=== PATIENT | male | born 1980 | race Caucasian/White ===

== ENCOUNTER 2016-12-09 10:51 | Emergency (ER) | payer MEDICAID ==
[~2016-12-09] VITALS: Ht 190.5 cm; Wt 59.0 kg
[~2016-12-09 10:51] MED LIST: ALPR0.5T PO; ALPR1TAB2 PO; ALPR2TAB2 PO; Amitriptyline Hcl PO; Erythromycin Base PO; GABA-585 PO; IBUP-1027 PO; METO10TA81 PO; NORT25CA PO; NORT50CA PO; OFLO5DRO EACHEYE; OMEP20CA9 PO; ONDA4TAB10 SL; ONDA4TAB12 PO; ONDA4TAB7 PO; ONDA8TAB9 PO; OXYC10TA32 PO; OXYC10TA57 PO; PROM25SU32 RC; SERT25TA4 PO
[2016-12-09 11:10] VITALS: BP 124/97
[2016-12-09] MEDS ORDERED: IV NORMAL SALINE 1000ML BAG 1,000 ML IV ONE (11:45)
[2016-12-09] MEDS ORDERED: METOCLOPRAMIDE HCL 10 MG/2 ML VIAL. IV ONE (11:45)
[2016-12-09] MEDS ORDERED: KETOROLAC TROMETHAMINE 30 MG/ML SYRINGE. IV ONE (11:45)
[2016-12-09 12:59] LABS: BASO # 0.1 x10^3/uL (0.0-0.2); BASO % 1 % (0-3); EOS % 2 % (0-3); HEMATOCRIT 51.6 % (39.0-53.0); HEMOGLOBIN 17.2 g/dL (13.0-17.5); LYMPH # 1.6 x10^3/uL (1.0-4.8); LYMPH % 15 % (24-48); MEAN CORPUSCULAR HEMOGLOBIN 31 pg (25-35); MEAN CORPUSCULAR HGB CONC 33 g/dL (31-37); MEAN CORPUSCULAR VOLUME 94 fL (79-100); MONO % 6 % (0-9); NEUT % 77 % (31-73); PLATELET COUNT 249 x10^3/uL (140-400); RED BLOOD COUNT 5.51 x10^6/uL (4.30-5.70); RED CELL DISTRIBUTION WIDTH 13.5 % (11.5-14.5); WHITE BLOOD COUNT 10.8 x10^3/uL (4.0-11.0)
[2016-12-09 13:17] LABS: CALCIUM 9.3 mg/dL (8.5-10.1); CREATININE 0.8 mg/dL (0.7-1.3); GFR 109.4; POTASSIUM 4.5 mmol/L (3.5-5.1)
[2016-12-09 13:23] LABS: ALBUMIN/GLOBULIN RATIO 1.1 (1.0-1.7); TOTAL BILIRUBIN 0.4 mg/dL (0.2-1.0); TOTAL PROTEIN 7.7 g/dL (6.4-8.2)
--- NOTE | 2016-12-09 14:40 | ED.ADGEN ---
Past Medical History Past Medical History: Cyclic Vomiting, Pneumonia, Other Additional Past Medical Histor: MUSCULAR DYSTROPHY, neurofibromatosis, gastroparesis, drug seeking behavior Past Surgical History: Cholecystectomy Alcohol Use: Rarely Drug Use: Marijuana Adult General Chief Complaint Chief Complaint: ABDOMINAL PAIN HPI HPI Patient is a 36 year old man, history of cyclic vomiting syndrome and chronic abdominal pain, marijuana abuse, who presents emergency Department complaining of recurrence of his chronic abdominal pain nausea and vomiting. Patient states that his multiple episodes of nausea and vomiting today, and is complaining of abdominal pain in his lower quadrant which is consistent with his previous evaluations. Patient has been seen in the emergency department multiple times with similar complaint. He states he is currently following with [facility], and was taken off all of his medications. He states that he has been doing better since this change was made. He denies taking any medication for nausea or pain prior to coming to the ED, admits to recent marijuana use, which she states was earlier this week. Denies any fevers, any chills, any bloody stool or emesis, any diarrhea, any weakness emesis or tingling, any injuries. Review of Systems Review of Systems Constitutional: Denies fever or chills. [] Eyes: Denies change in visual acuity. [] HENT: Denies nasal congestion or sore throat. [] Respiratory: Denies cough or shortness of breath. [] Cardiovascular: Denies chest pain or edema. [] GI: Denies abdominal pain, nausea, vomiting, bloody stools or diarrhea. [] : Denies dysuria. [] Musculoskeletal: Denies back pain or joint pain. [] Integument: Denies rash. [] Neurologic: Denies headache, focal weakness or sensory changes. [] Endocrine: Denies polyuria or polydipsia. [] Lymphatic: Denies swollen glands. [] Psychiatric: Denies depression or anxiety. [] Current Medications Current Medications Current Medications Medications (Trade) Dose Ordered Sig/Noah Start Time Stop Time Status Last Admin Dose Admin Ketorolac Tromethamine (Toradol) 10 mg 1X ONCE 12/09/16 11:45 12/09/16 11:46 DC 12/09/16 12:55 10 MG Metoclopramide HCl (Reglan) 10 mg 1X ONCE 12/09/16 11:45 12/09/16 11:46 DC 12/09/16 12:52 10 MG Sodium Chloride (Iv Sodium Chloride 0.9% 1000ml Bag) 1,000 ml @ 1,000 mls/hr 1X ONCE 12/09/16 11:45 12/09/16 12:44 DC 12/09/16 12:51 1,000 MLS/HR Allergies Allergies Allergies Coded Allergies Type Severity Reaction Last Updated Verified morphine Adverse Reaction Severe "makes me crazy" Tolerates Dilaudid, Oxycodone 12/09/16 Yes acetaminophen Adverse Reaction Intermediate vomiting 12/09/16 Yes Physical Exam Physical Exam Constitutional: Well developed, well nourished, no acute distress, non-toxic appearance. [] HENT: Normocephalic, atraumatic, bilateral external ears normal, oropharynx moist, no oral exudates, nose normal. [] Eyes: PERRLA, EOMI, conjunctiva normal, no discharge. [] Neck: Normal range of motion, no tenderness, supple, no stridor. [] Cardiovascular:Heart rate regular rhythm, no murmur, S1, S2, rubs or gallops. [] Lungs & Thorax: Bilateral breath sounds clear to auscultation, no wheezing, rhonchi, rales. No chest tenderness or crepitus. [] Abdomen: Bowel sounds normal, soft, mild tenderness palpation in the lower quadrants, no rebound, rigidity, no guarding, consistent with previous examinations, no masses, no pulsatile masses. [] Skin: Warm, dry, no erythema, no rash. [] Back: No tenderness, no CVA tenderness. [] Extremities: No tenderness, no cyanosis, no clubbing, ROM intact, no edema. [] Neurologic: Alert and oriented X 3, normal motor function, normal sensory function, no focal deficits noted. [] Psychologic: Affect normal, judgement normal, mood normal. [] Current Patient Data Vital Signs Vital Signs Date Time Temp Pulse Resp B/P Pulse Ox O2 Delivery O2 Flow Rate FiO2 12/09/16 11:10 97.6 78 20 124/97 99 Room Air 97.6 Lab Values Laboratory Tests Test 12/09/16 12:45 White Blood Count 10.8x10^3/uL (4.0-11.0) Red Blood Count 5.51x10^6/uL (4.30-5.70) Hemoglobin 17.2g/dL (13.0-17.5) Hematocrit 51.6% (39.0-53.0) Mean Corpuscular Volume 94fL (79-100) Mean Corpuscular Hemoglobin 31pg (25-35) Mean Corpuscular Hemoglobin Concent 33g/dL (31-37) Red Cell Distribution Width 13.5% (11.5-14.5) Platelet Count 249x10^3/uL (140-400) Neutrophils (%) (Auto) 77% (31-73) H Lymphocytes (%) (Auto) 15% (24-48) L Monocytes (%) (Auto) 6% (0-9) Eosinophils (%) (Auto) 2% (0-3) Basophils (%) (Auto) 1% (0-3) Neutrophils # (Auto) 8.2x10^3uL (1.8-7.7) H Lymphocytes # (Auto) 1.6x10^3/uL (1.0-4.8) Monocytes # (Auto) 0.7x10^3/uL (0.0-1.1) Eosinophils # (Auto) 0.2x10^3/uL (0.0-0.7) Basophils # (Auto) 0.1x10^3/uL (0.0-0.2) Sodium Level 142mmol/L (136-145) Potassium Level 4.5mmol/L (3.5-5.1) Chloride Level 105mmol/L (98-107) Carbon Dioxide Level 29mmol/L (21-32) Anion Gap 8 (6-14) Blood Urea Nitrogen 14mg/dL (8-26) Creatinine 0.8mg/dL (0.7-1.3) Estimated GFR (Cockcroft-Gault) 109.4 BUN/Creatinine Ratio 18 (6-20) Glucose Level 83mg/dL (70-99) Calcium Level 9.3mg/dL (8.5-10.1) Total Bilirubin 0.4mg/dL (0.2-1.0) Aspartate Amino Transferase (AST) 23U/L (15-37) Alanine Aminotransferase (ALT) 21U/L (16-63) Alkaline Phosphatase 93U/L (46-116) Total Protein 7.7g/dL (6.4-8.2) Albumin 4.0g/dL (3.4-5.0) Albumin/Globulin Ratio 1.1 (1.0-1.7) Lipase 159U/L (73-393) Laboratory Tests 12/09/16 12:45 Laboratory Tests 12/09/16 12:45 EKG EKG ECG: Rhythm strip: Heart rate 70 bpm, sinus rhythm, no ectopy, as interpreted by me. [] Radiology/Procedures Radiology/Procedures Not indicated. [] Course & Med Decision Making Course & Med Decision Making Pertinent Labs and Imaging studies reviewed. (See chart for details) Patient complaining of recurrent symptoms of his cyclic vomiting chronic abdominal pain. Discussed with patient that we will obtain laboratory studies to rule out any concerning findings, and we'll treat his symptoms with antiemetics, pain management, and Haldol, concern for cyclic vomiting syndrome that was worsened by marijuana use. Patient received medications in the ED, is requesting Dilaudid. No episodes of emesis in the ED. I have explained to the patient previously that we do not give Dilaudid for this type of presentation, on abdominal pain with vomiting, at this point his laboratory studies have resulted and do not reveal any evidence of acutely concerning findings. While I was with a critically ill patient, patient stated that he was not willing to wait for me to discuss findings with him in the ED, and requested to sign out AGAINST MEDICAL ADVICE. Patient is alert, oriented, cooperative, and paperwork was completed with nurse per nursing notes, patient did exit the emergency department without difficulty with his significant other. Dragon Disclaimer Dragon Disclaimer This electronic medical record was generated, in whole or in part, using a voice recognition dictation system. Departure Impression: Primary Impression: Left against medical advice Additional Impressions: Cyclical vomiting Drug-seeking behavior Chronic abdominal pain Disposition: 07 AGAINST MEDICAL ADVICE Condition: STABLE Problem Qualifiers Additional Impressions: Cyclical vomiting Vomiting Intractability: non-intractable Nausea presence: with nausea Qualified Code: G43.A0 - Cyclical vomiting, not intractable JAMIE BERG DO Dec 09, 2016 14:40
[2016-12-11] MEDS ORDERED: METO10TA81 PO (10:01)
== END 2016-12-09 13:28 | disposition left against medical advice (07) ==
LOC: ER 10:51
DX: G43.A0 Cyclical vomiting, in migraine, not intractable (principal); R10.30 Lower abdominal pain, unspecified; G89.29 Other chronic pain; F12.10 Cannabis abuse, uncomplicated; G71.0 Muscular dystrophy; K31.84 Gastroparesis; Z76.5 Malingerer [conscious simulation]; Z88.8 Allergy status to other drugs, medicaments and biological substances; Z88.5 Allergy status to narcotic agent
CPT/HCPCS: 36415; 80053; 83690; 85027; 96361; 96374; 96375; 99284; J1885; J2765; J7030

== ENCOUNTER 2017-02-01 08:02 | Emergency (ER) | payer MEDICAID ==
[2017-02-01 08:21] VITALS: BP 128/73
--- NOTE | 2017-02-01 08:29 | PHYS DOC ---
Past Medical History Past Medical History: Cyclic Vomiting, Pneumonia, Other Additional Past Medical Histor: MUSCULAR DYSTROPHY, neurofibromatosis, gastroparesis, drug seeking behavior Past Surgical History: Cholecystectomy Alcohol Use: Rarely Drug Use: Marijuana Adult General Chief Complaint Chief Complaint: NAUSEA/VOMITING/DIARRHA HPI HPI Patient is a 37 year old male who presents with complaint of abdominal pain and vomiting. Patient states that his symptoms started approximate 4:00 this morning. Patient has had multiple visits to the emergency department for similar complaints. Patient has been treated for cyclical vomiting syndrome and displays a pattern of drug-seeking behavior. The patient states that he is having pain in the upper and right side of his abdomen. Patient denies bloody emesis or bloody stools. Patient states that he does not take any medications at home currently. Patient states that his doctor took him off of medications so that when he gets exacerbations of his abdominal pain and vomiting that he can come to the emergency department and receive IV narcotics. Patient states this is the only medication that helps with his symptoms. Patient rates pain as 10 out of 10. Patient has not taken any medication at home for his symptoms. Patient states that he has not taken any medications in over a year despite chart review showing multiple prescription meds being written for in the past year. Review of Systems Review of Systems Constitutional: Denies fever or chills [] Eyes: Denies change in visual acuity, redness, or eye pain [] HENT: Denies nasal congestion or sore throat [] Respiratory: Denies cough or shortness of breath [] Cardiovascular: Denies chest pain or edema [] GI: Abdominal pain, nausea, vomiting [] : Denies dysuria or hematuria [] Musculoskeletal: Denies back pain or joint pain [] Integument: Denies rash or skin lesions [] Neurologic: Denies headache, focal weakness or sensory changes [] Allergies Allergies Allergies Coded Allergies Type Severity Reaction Last Updated Verified morphine Adverse Reaction Severe "makes me crazy" Tolerates Dilaudid, Oxycodone 12/09/16 Yes acetaminophen Adverse Reaction Intermediate vomiting 12/09/16 Yes Physical Exam Physical Exam Constitutional: Alert, afebrile, appears in minimal discomfort. [] HENT: Normocephalic, atraumatic, bilateral external ears normal, oropharynx moist, no oral exudates, nose normal. [] Eyes: PERRLA, EOMI, conjunctiva normal, no discharge. [] Neck: Normal range of motion, no tenderness, supple, no stridor. [] Cardiovascular:Heart rate regular rhythm, no murmur [] Lungs & Thorax: Bilateral breath sounds clear to auscultation [] Abdomen: Bowel sounds normal, soft, epigastric and right upper quadrant tenderness to palpation, no masses, no pulsatile masses. [] Skin: Warm, dry, no erythema, no rash. [] Back: No tenderness, no CVA tenderness. [] Extremities: No tenderness, no cyanosis, no clubbing, ROM intact, no edema. [] Neurologic: Alert and oriented X 3, normal motor function, normal sensory function, no focal deficits noted. [] Current Patient Data Vital Signs Vital Signs Date Time Temp Pulse Resp B/P Pulse Ox O2 Delivery O2 Flow Rate FiO2 02/01/17 08:21 98.3 67 16 128/73 98 Room Air 98.3 EKG EKG Initial rhythm strip: Heart rate 78, normal sinus rhythm, no ectopy [] Radiology/Procedures Radiology/Procedures Not performed [] Course & Med Decision Making Course & Med Decision Making Pertinent Labs and Imaging studies reviewed. (See chart for details) The patient's vital signs are stable and the patient does not appear toxic. For this reason I offered the patient treatment with IM versus oral medication. The patient stated that I am medication does not help him and states the only thing that will help her IV narcotics. I attempted to explain to the patient that this is not appropriate therapy for cyclical vomiting syndrome. I did offer diagnostic testing to ensure the patient did not show evidence of acute pancreatitis or other metabolic abnormalities. The patient refused to stay in the emergency department once he was told that he would not be receiving IV narcotics. I also attempted to explain to the patient that leaving the emergency department before full diagnostic workup was done was not advisable at this time and stated that he would be leaving AGAINST MEDICAL ADVICE. The patient left the emergency department refusing to sign any paperwork. Arminda Disclaimer Dragon Disclaimer This electronic medical record was generated, in whole or in part, using a voice recognition dictation system. Departure Departure Impression: Primary Impression: Abdominal pain Additional Impression: Left against medical advice Disposition: AGAINST MEDICAL ADVICE Condition: STABLE Referrals: UNKNOWN PCP NAME (PCP) Problem Qualifiers Primary Impression: Abdominal pain Abdominal location: upper abdomen, unspecified Qualified Code: R10.10 - Upper abdominal pain, unspecified HARRIS BEGUM MD Feb 01, 2017 08:29
== END 2017-02-01 08:20 | disposition left against medical advice (07) ==
LOC: ER 08:02
DX: R10.9 Unspecified abdominal pain (principal); R11.10 Vomiting, unspecified; K31.84 Gastroparesis; F12.10 Cannabis abuse, uncomplicated; Z87.01 Personal history of pneumonia (recurrent); Z88.5 Allergy status to narcotic agent; Z88.8 Allergy status to other drugs, medicaments and biological substances
CPT/HCPCS: 99281

== ENCOUNTER 2017-03-19 14:24 | Inpatient (IN) | payer MEDICAID ==
[~2017-03-19] VITALS: Ht 190.5 cm; Wt 59.0 kg
[2017-03-19] MEDS ORDERED: IV NORMAL SALINE 1000ML BAG 1,000 ML IV SCH (14:46)
--- NOTE | 2017-03-19 14:52 | PHYS DOC ---
Past Medical History Past Medical History: Cyclic Vomiting, Pneumonia, Other Additional Past Medical Histor: MUSCULAR DYSTROPHY, neurofibromatosis, gastroparesis, drug seeking behavior Past Surgical History: Cholecystectomy Alcohol Use: Rarely Drug Use: Marijuana Adult General Chief Complaint Chief Complaint: abdominal pain HPI HPI H is a pleasant 37-year-old female well-known to this facility with history of gastric paresis chronic abdominal pain narcotic abuse and withdrawal symptoms presents with intractable nausea vomiting began this morning. He is a history of cyclic vomiting syndrome as chronic abdominal pain she is on no medications and is on care of a GI physician. He has been seen in multiple treatment facilities and last time he was seen here the exact same complaint. Only is nonbilious nonbloody he has not no fevers no chills. Blood in the stool. He's had no history of syncope but is very diaphoretic and lightheaded and dizzy when he stands. He's had chest wall pain with intractable nausea and vomiting this worsens with vomiting. He denies any drug, denies any trauma denies any recent sick contacts. His girlfriend is at bedside. Review of Systems Review of Systems Constitutional: Denies fever or chills [] Eyes: Denies change in visual acuity, redness, or eye pain [] HENT: Patient feels dry Respiratory: Denies cough or shortness of breath [] Cardiovascular: No additional information not addressed in HPI [] GI: Patient complains of diffuse abdominal pain with intractable nausea and vomiting on the list of bloody : Denies dysuria or hematuria [] Musculoskeletal: Denies back pain or joint pain [] Integument: Denies rash or skin lesions [] Neurologic: Feels diffusely weak Endocrine: Denies polyuria or polydipsia [] Current Medications Current Medications Current Medications Medications (Trade) Dose Ordered Sig/Noah Start Time Stop Time Status Last Admin Dose Admin Haloperidol Lactate (Haldol) 5 mg 1X ONCE 03/19/17 15:00 03/19/17 15:01 DC Ketamine HCl 20 mg 1X ONCE 03/19/17 15:00 03/19/17 15:01 DC 03/19/17 15:42 20 MG Ondansetron HCl (Zofran) 4 mg 1X ONCE 03/19/17 15:00 03/19/17 15:01 DC 03/19/17 15:32 4 MG Sodium Chloride (Iv Sodium Chloride 0.9% 1000ml Bag) 1,000 ml @ 1,000 mls/hr Q1H 03/19/17 14:46 03/19/17 15:45 DC 03/19/17 15:32 1,000 MLS/HR Sodium Chloride (Normal Saline Flush) 10 ml QSHIFT PRN 03/19/17 15:00 03/19/17 15:30 10 ML Allergies Allergies Allergies Coded Allergies Type Severity Reaction Last Updated Verified morphine Adverse Reaction Severe "makes me crazy" Tolerates Dilaudid, Oxycodone 12/09/16 Yes acetaminophen Adverse Reaction Intermediate vomiting 12/09/16 Yes Physical Exam Physical Exam Constitutional: Patient is thin and cachectic with diaphoresis pale skin looks obviously uncomfortable. HENT: Normocephalic, atraumatic, bilateral external ears normal, oropharynx moist, no oral exudates, nose normal. [] Eyes: PERRLA, EOMI, conjunctiva normal, no discharge. [] Neck: Normal range of motion, no tenderness, supple, no stridor. [] Cardiovascular patient rate is bradycardic Lungs & Thorax: Bilateral breath sounds clear to auscultation [] Abdomen: Patient bowel sounds are hyperactive he is diffuse tenderness in all areas of his abdomen Skin: Skin is diaphoretic and pale Back: No tenderness, no CVA tenderness. [] Extremities: No tenderness, no cyanosis, no clubbing, ROM intact, no edema. [] Neurologic: Alert and oriented X 3, normal motor function, normal sensory function, no focal deficits noted. [] Psychologic: Affect normal, judgement normal, mood normal. [] Current Patient Data Vital Signs Vital Signs Date Time Temp Pulse Resp B/P Pulse Ox O2 Delivery O2 Flow Rate FiO2 03/19/17 16:04 54 16 120/60 98 Room Air 03/19/17 14:30 97.6 97.6 Lab Values Laboratory Tests Test 03/19/17 15:50 White Blood Count 9.0x10^3/uL (4.0-11.0) Red Blood Count 5.18x10^6/uL (4.30-5.70) Hemoglobin 16.9g/dL (13.0-17.5) Hematocrit 49.1% (39.0-53.0) Mean Corpuscular Volume 95fL (79-100) Mean Corpuscular Hemoglobin 33pg (25-35) Mean Corpuscular Hemoglobin Concent 35g/dL (31-37) Red Cell Distribution Width 14.1% (11.5-14.5) Platelet Count 274x10^3/uL (140-400) Neutrophils (%) (Auto) 82% (31-73) H Lymphocytes (%) (Auto) 13% (24-48) L Monocytes (%) (Auto) 4% (0-9) Eosinophils (%) (Auto) 1% (0-3) Basophils (%) (Auto) 0% (0-3) Neutrophils # (Auto) 7.4x10^3uL (1.8-7.7) Lymphocytes # (Auto) 1.2x10^3/uL (1.0-4.8) Monocytes # (Auto) 0.4x10^3/uL (0.0-1.1) Eosinophils # (Auto) 0.1x10^3/uL (0.0-0.7) Basophils # (Auto) 0.0x10^3/uL (0.0-0.2) Laboratory Tests 03/19/17 15:50 EKG EKG [] EKG timed working 33 03/19/2017 heart rate 54 normal sinus rhythm with a rightward axis deviation and incomplete right bundle was struck with a RR prime in the V1, V2 leads no ST segment elevation no evidence of widened QRS complex Radiology/Procedures Radiology/Procedures [] Course & Med Decision Making Course & Med Decision Making Pertinent Labs and Imaging studies reviewed. (See chart for details) [Patient is well-known to our system here he's been seen in our emergency department for abdominal pain with intractable nausea and vomiting patient is to some drinking water while here. He said he feels better than retching. He has been given multiple doses Zofran we've given him some Haldol and attempted to give him a slow bolus of ketamine in an attempt to treat his intractable nausea and vomiting this is work from the past but at this present time Nielsman 2 hours into his evaluation he still having intractable nausea and vomiting. He reports she will not take her advice and does not quit drinking water at the bedside and continues to vomit clear liquid. CMP looked normal] evidence of injury to his kidney structure. Patient will be admitted for intractable nausea and vomiting. He will be admitted to internal medicine Dragon Disclaimer Dragon Disclaimer This electronic medical record was generated, in whole or in part, using a voice recognition dictation system. Departure Departure Impression: Primary Impression: Abdominal pain Additional Impressions: Cyclic vomiting syndrome Gastroparesis Disposition: 02 TRANSFER [facility] Admitting Physician: Cirilo Luther Condition: GUARDED Referrals: NO PCP (PCP) Problem Qualifiers GHASSAN RM MD March 19, 2017 14:52
[2017-03-19] MEDS ORDERED: KETAMINE HCL 500 MG/10 ML VIAL. IV ONE (15:00)
[2017-03-19] MEDS ORDERED: 0.9 % SODIUM CHLORIDE 10 ML DISP.SYRIN. IV PRN (15:00)
[2017-03-19] MEDS ORDERED: HALOPERIDOL LACTATE 5 MG/ML VIAL. IVP ONE (15:00)
[2017-03-19] MEDS ORDERED: ONDANSETRON PF 4 MG/2 ML VIAL. IV ONE ×2 (15:00→16:45)
[2017-03-19 16:05] LABS: BASO % 0 % (0-3); EOS % 1 % (0-3); HEMATOCRIT 49.1 % (39.0-53.0); HEMOGLOBIN 16.9 g/dL (13.0-17.5); LYMPH # 1.2 x10^3/uL (1.0-4.8); LYMPH % 13 % (24-48); MEAN CORPUSCULAR HEMOGLOBIN 33 pg (25-35); MEAN CORPUSCULAR HGB CONC 35 g/dL (31-37); MEAN CORPUSCULAR VOLUME 95 fL (79-100); MONO % 4 % (0-9); NEUT % 82 % (31-73); PLATELET COUNT 274 x10^3/uL (140-400); RED BLOOD COUNT 5.18 x10^6/uL (4.30-5.70); RED CELL DISTRIBUTION WIDTH 14.1 % (11.5-14.5)
[2017-03-19 16:18] LABS: CALCIUM 9.8 mg/dL (8.5-10.1); CREATININE 0.9 mg/dL (0.7-1.3); POTASSIUM 4.2 mmol/L (3.5-5.1)
[2017-03-19 16:25] LABS: ALBUMIN 4.3 g/dL (3.4-5.0); TOTAL BILIRUBIN 0.5 mg/dL (0.2-1.0); TOTAL PROTEIN 8.4 g/dL (6.4-8.2)
[2017-03-19 16:33] LABS: CKMB MASS 20.8 ng/mL (0.0-3.6)
--- NOTE | 2017-03-19 17:07 | RAD ---
Acute abdomen series with chest, 3 views, 03/19/2017: History: Abdominal pain with nausea and vomiting Comparison is made to a study from 10/19/2016. Gas is present in scattered loops of large and small bowel without significant bowel distention. No free air is present in the abdomen. There is no evidence of organomegaly. Surgical clips in the right upper quadrant suggest a previous cholecystectomy. A small right lower pelvic calcification has been shown to be related to a small pelvic mass in this patient with known neurofibromatosis. The heart size is normal. No pulmonary infiltrates are seen. There is no evidence of pleural fluid. 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 IMPRESSION: 1. Chronic findings as described above. 2. No acute abdominal abnormality is detected.
[2017-03-19 17:50] VITALS: BP 119/71
[2017-03-19] MEDS ORDERED: hydrALAZINE 20 MG/ML VIAL. IVP PRN (18:15)
[2017-03-19] MEDS ORDERED: ALBUTEROL SULFATE 2.5 MG/3 ML NEBU. NEB PRN (18:15)
[2017-03-19] MEDS ORDERED: fentaNYL PF VIAL 100 MCG/2 ML VIAL IV PRN (18:15)
[2017-03-19 19:00] VITALS: BP 115/61
--- NOTE | 2017-03-19 19:18 | ACF ---
Admission Forms Criteria VOMITING Clinical Indications for Admission to Inpatient Care ( Place 'X' for any and all applicable criteria): Admission is indicated for 1 or more of the following(1)(2)(3): [ ]I. Complete or partial gastrointestinal obstruction [ ]II. Vomiting due to significant metabolic derangement (eg, severe hypercalcemia, diabetic ketoacidosis) [ ]III. Other cause of vomiting requiring hospitalization (eg, poisoning, increased intracranial pressure) [X]IV. Inpatient admission required rather than observation care because of 1 or more of the following [ ]i) Hemodynamic instability [X]ii) Vomiting that is severe or persistent indicated by 1 or more of the following 1) Numerous episodes of vomiting in past 24hours (eg, every 1 to 2 hours) 2) Suggests severe underlying cause or complication (eg , projectile, feculent, bilious, coffee ground, bloody) 3) Appropriate antiemetic treatment (eg, repeated oral or parenteral dosing) does not sufficiently reduce vomiting within 12 to 24 hours of treatment [X] Treatment regimen necessary to adequately control vomiting requires inpatient level of care (eg, not immediately available in outpatient setting) [ ]iii) Severe electrolyte abnormalities requiring inpatient care [ ]iv) Severe pain requiring acute inpatient management( Continuous or frequent (eg, every 2 to 4 hours) parental analgesics or analgesic regimen that can only be performed or initiated in inpatient setting) [ ]v) High fever or infection requiring inpatient admission as indicated by 1 or more of the following(7)(8): [ ]1) Appropriate outpatient or observation care antimicrobial treatment unavailable, not effective, or not feasible [ ]2) Documented bacteremia [ ]3) Temp >104.9 degrees F (40.5 degrees C) (oral) [ ]4) Temp >103.1 degrees F (39.5 C) (oral) or <96.8 degrees F (36 C) (rectal) that does not respond to all emergency treatment measures [ ]vi) Acute renal failure [ ]vii) IV fluid required rather than oral rehydration to replace significant on going losses (greater than 3 L/m2 per day) [ ]viii) Parenteral nutrition regimen that must be implemented on inpatient basis [ ]ix) Other condition, treatment or monitoring requiring inpatient admission Extended stay beyond goal length of stay may be needed for(1)(4): [ ]a) Severe vomiting [ ]b) Persistent vomiting, vital sign changes, severe electrolyte imbalance , or diagnosed cause of vomiting that requires continued hospitalization (eg, gastrointestinal obstruction , increased intracranial pressure) [ ]c) Surgery to treat identified causes of vomiting (eg, bowel obstruction , intracranial process) [ ]d) Comorbid illness that requires inpatient care (eg, acute heart failure , renal failure) [ ]e) Need for inpatient endoscopy The original [facility] content created by [employer] has been revised. The portions of the content which have been revised are identified through the use of italic text or in bold, and [facility] has neither reviewed nor approved the modified material. All other unmodified content is copyright [facility]. Please see references footnoted in the original [facility] [employer] edition 2016 Admission Criteria Met?: Yes ADOLPH KAT March 19, 2017 19:18
--- NOTE | 2017-03-19 19:25 | PDOC1 ---
History and Physical Past Medical History CENTRAL NERVOUS SYSTEM: Other GI: Other Psych: Anxiety, Depression Past Surgical History Past Surgical History: Cholecystectomy Family History Family History: No Significant, Other Social History ALCOHOL: none Drugs: Marijuana Current Problem List Problem List Problems Medical Problems: (1) Abdominal pain Status: Acute (2) Cyclic vomiting syndrome Status: Acute (3) Gastroparesis Status: Acute Current Medications Current Medications Current Medications Medications (Trade) Dose Ordered Sig/Noah Start Time Stop Time Status Last Admin Dose Admin Albuterol Sulfate 2.5 mg 2.5 mg PRN Q4HRS PRN 03/19/17 18:15 Fentanyl Citrate (Fentanyl 2ml Vial) 25 mcg PRN Q4HRS PRN 03/19/17 18:15 03/20/17 18:14 Haloperidol Lactate (Haldol) 5 mg 1X ONCE 03/19/17 15:00 03/19/17 15:01 DC Hydralazine HCl (Apresoline) 10 mg PRN Q4HRS PRN 03/19/17 18:15 Ketamine HCl 20 mg 1X ONCE 03/19/17 15:00 03/19/17 15:01 DC 03/19/17 15:42 20 MG Ondansetron HCl (Zofran) 4 mg PRN Q8HRS PRN 03/19/17 18:15 Sodium Chloride (Iv Sodium Chloride 0.9% 1000ml Bag) 1,000 ml @ 75 mls/hr [id number] 03/19/17 18:15 Sodium Chloride (Normal Saline Flush) 10 ml QSHIFT PRN 03/19/17 15:00 03/19/17 15:30 10 ML Allergies Allergies Allergies Coded Allergies Type Severity Reaction Last Updated Verified morphine Adverse Reaction Severe "makes me crazy" Tolerates Dilaudid, Oxycodone 12/09/16 Yes acetaminophen Adverse Reaction Intermediate vomiting 12/09/16 Yes ROS Review of System CONSTITUTIONAL: No fever or chills EYES: No recent changes SKIN: No rash or itching CARDIOVASCULAR: No chest pain, syncope, palpitations, or edema RESPIRATORY: No SOB or cough GASTROINTESTINAL: nausea, vomiting or abdominal pain NEUROLOGICAL: No headaches or weakness ENDOCRINE: No cold or heat intolerance GENITOURINARY: No urgency or frequency of urination MUSCULOSKELETAL: No back pain or joint pain LYMPHATICS: No enlarged lymph nodes PSYCHIATRIC: No anxiety or depression Physical Exam Physical Exam GEN.: No apparent distress. Alert and oriented, dry, dehydrated. Thin built HEENT: Head is normocephalic, atraumatic NECK: Supple. LUNGS: Clear to auscultation. no JVD HEART: RRR, S1, S2 present. Peripheral pulses intact ABDOMEN: Soft, nontender. Positive bowel sounds. EXTREMITIES: Without any cyanosis. NEUROLOGIC: Normal speech, normal tone PSYCHIATRIC: Normal affect, normal mood. SKIN: DRY, Vitals Vitals Vital Signs Date Time Temp Pulse Resp B/P Pulse Ox O2 Delivery O2 Flow Rate FiO2 03/19/17 17:50 97.5 67 18 119/71 100 Room Air 97.5 Labs Labs Laboratory Tests Test 03/19/17 15:50 White Blood Count 9.0x10^3/uL (4.0-11.0) Red Blood Count 5.18x10^6/uL (4.30-5.70) Hemoglobin 16.9g/dL (13.0-17.5) Hematocrit 49.1% (39.0-53.0) Mean Corpuscular Volume 95fL (79-100) Mean Corpuscular Hemoglobin 33pg (25-35) Mean Corpuscular Hemoglobin Concent 35g/dL (31-37) Red Cell Distribution Width 14.1% (11.5-14.5) Platelet Count 274x10^3/uL (140-400) Neutrophils (%) (Auto) 82% (31-73) Lymphocytes (%) (Auto) 13% (24-48) Monocytes (%) (Auto) 4% (0-9) Eosinophils (%) (Auto) 1% (0-3) Basophils (%) (Auto) 0% (0-3) Neutrophils # (Auto) 7.4x10^3uL (1.8-7.7) Lymphocytes # (Auto) 1.2x10^3/uL (1.0-4.8) Monocytes # (Auto) 0.4x10^3/uL (0.0-1.1) Eosinophils # (Auto) 0.1x10^3/uL (0.0-0.7) Basophils # (Auto) 0.0x10^3/uL (0.0-0.2) Sodium Level 142mmol/L (136-145) Potassium Level 4.2mmol/L (3.5-5.1) Chloride Level 105mmol/L (98-107) Carbon Dioxide Level 29mmol/L (21-32) Anion Gap 8 (6-14) Blood Urea Nitrogen 16mg/dL (8-26) Creatinine 0.9mg/dL (0.7-1.3) Estimated GFR (Cockcroft-Gault) 95.0 BUN/Creatinine Ratio 18 (6-20) Glucose Level 132mg/dL (70-99) Calcium Level 9.8mg/dL (8.5-10.1) Total Bilirubin 0.5mg/dL (0.2-1.0) Aspartate Amino Transf (AST/SGOT) 27U/L (15-37) Alanine Aminotransferase (ALT/SGPT) 36U/L (16-63) Alkaline Phosphatase 101U/L (46-116) Creatine Kinase 397U/L (39-308) Creatine Kinase MB (Mass) 20.8ng/mL (0.0-3.6) Creatine Kinase MB Relative Index 5.2% (0-4) Total Protein 8.4g/dL (6.4-8.2) Albumin 4.3g/dL (3.4-5.0) Albumin/Globulin Ratio 1.0 (1.0-1.7) Lipase 104U/L (73-393) Laboratory Tests Test 03/19/17 15:50 White Blood Count 9.0x10^3/uL (4.0-11.0) Red Blood Count 5.18x10^6/uL (4.30-5.70) Hemoglobin 16.9g/dL (13.0-17.5) Hematocrit 49.1% (39.0-53.0) Mean Corpuscular Volume 95fL (79-100) Mean Corpuscular Hemoglobin 33pg (25-35) Mean Corpuscular Hemoglobin Concent 35g/dL (31-37) Red Cell Distribution Width 14.1% (11.5-14.5) Platelet Count 274x10^3/uL (140-400) Neutrophils (%) (Auto) 82% (31-73) Lymphocytes (%) (Auto) 13% (24-48) Monocytes (%) (Auto) 4% (0-9) Eosinophils (%) (Auto) 1% (0-3) Basophils (%) (Auto) 0% (0-3) Neutrophils # (Auto) 7.4x10^3uL (1.8-7.7) Lymphocytes # (Auto) 1.2x10^3/uL (1.0-4.8) Monocytes # (Auto) 0.4x10^3/uL (0.0-1.1) Eosinophils # (Auto) 0.1x10^3/uL (0.0-0.7) Basophils # (Auto) 0.0x10^3/uL (0.0-0.2) Sodium Level 142mmol/L (136-145) Potassium Level 4.2mmol/L (3.5-5.1) Chloride Level 105mmol/L (98-107) Carbon Dioxide Level 29mmol/L (21-32) Anion Gap 8 (6-14) Blood Urea Nitrogen 16mg/dL (8-26) Creatinine 0.9mg/dL (0.7-1.3) Estimated GFR (Cockcroft-Gault) 95.0 BUN/Creatinine Ratio 18 (6-20) Glucose Level 132mg/dL (70-99) Calcium Level 9.8mg/dL (8.5-10.1) Total Bilirubin 0.5mg/dL (0.2-1.0) Aspartate Amino Transf (AST/SGOT) 27U/L (15-37) Alanine Aminotransferase (ALT/SGPT) 36U/L (16-63) Alkaline Phosphatase 101U/L (46-116) Creatine Kinase 397U/L (39-308) Creatine Kinase MB (Mass) 20.8ng/mL (0.0-3.6) Creatine Kinase MB Relative Index 5.2% (0-4) Total Protein 8.4g/dL (6.4-8.2) Albumin 4.3g/dL (3.4-5.0) Albumin/Globulin Ratio 1.0 (1.0-1.7) Lipase 104U/L (73-393) VTE Prophylaxis Ordered VTE Prophylaxis Devices: No VTE Pharmacological Prophylaxi: Yes JORJE MILES MD March 19, 2017 19:25
[2017-03-19] MEDS: HYDROmorphone 2 MG/ML VIAL IVP PRN ×2 (19:34→21:59)
[2017-03-19] MEDS: IV NORMAL SALINE 1000ML BAG 1,000 ML IV SCH (19:45)
[2017-03-19] MEDS: ONDANSETRON PF 4 MG/2 ML VIAL. IV PRN (19:59)
[2017-03-19 23:00] VITALS: BP 119/70
--- NOTE | 2017-03-19 23:34 | HP ---
ADMIT DATE: 03/19/2017 CHIEF COMPLAINT: Nausea, vomiting, abdominal pain. HISTORY OF PRESENT ILLNESS: A 37-year-old male patient with a prior history of cyclical vomiting syndrome, who was last admitted in 08/2016 here, presented back to the ER with complaints of nausea, vomiting and abdominal pain. Symptoms are intractable in nature. He had a prior history of cyclical vomiting syndrome and neurofibromatosis; however, per the patient, he has been off the medications for a long time, nearly more than 1 year and not been admitted to any hospitals; however, his symptoms recurred back for the last 2 days. Nausea and vomiting is intractable in nature and also epigastric abdominal pain. In the past, he was evaluated by Gastroenterology and recommended symptomatic treatment. PAST MEDICAL HISTORY: Neurofibromatosis, gastroparesis, GERD, MRSA. PAST SURGICAL HISTORY: Cholecystectomy. FAMILY HISTORY: No GI cancers. SOCIAL HISTORY: No smoking, no alcohol. Occasionally takes marijuana. REVIEW OF SYSTEMS AND PHYSICAL EXAMINATION: Please see my electronic H and P. LABORATORY FINDINGS: CBC, BMP reviewed. CBC within normal limits. Chemistry within normal limits except for CPK high at 397 and CPK-MB is 20.8 and index is 5.2. IMAGING STUDIES: Acute abdominal series showed chronic findings, no acute abnormality noted. ASSESSMENT: 1. Intractable nausea and vomiting, suspected cyclical vomiting syndrome or gastroparesis. 2. Abdominal pain due to above. PLAN: 1. The patient appears dehydrated. I will start him on IV hydration, normal saline at 75 mL per hour, keep him n.p.o. except for the ice chips. 2. He received some ____ in the ER; however, symptoms did not improve. I will continue him on Zofran 4 mg q.6 hours with Dilaudid 0.5 mg. 3. Avoid CO2 narcosis, monitor him on telemetry. 4. Consultations obtained for Gastroenterology. 5. Supportive care, also monitor CPK. 6. If symptoms improve, advance diet as tolerated and also for intractable nausea, he can take some Compazine as needed. 7. Prognosis guarded. JORJE MILES MD DR: NATTY/katerine JOB#: [id number] / [id number] MTDD
[2017-03-20] MEDS: HYDROmorphone 2 MG/ML VIAL IVP PRN ×8 (00:04→23:49)
[2017-03-20 03:00] VITALS: BP 116/77
[2017-03-20] MEDS: ONDANSETRON PF 4 MG/2 ML VIAL. IV PRN (03:25)
[2017-03-20 04:24] LABS: BASO % 0 % (0-3); EOS % 0 % (0-3); HEMATOCRIT 45.2 % (39.0-53.0); HEMOGLOBIN 15.1 g/dL (13.0-17.5); LYMPH # 1.4 x10^3/uL (1.0-4.8); LYMPH % 12 % (24-48); MEAN CORPUSCULAR HEMOGLOBIN 32 pg (25-35); MEAN CORPUSCULAR HGB CONC 33 g/dL (31-37); MEAN CORPUSCULAR VOLUME 97 fL (79-100); MONO % 11 % (0-9); NEUT % 77 % (31-73); PLATELET COUNT 253 x10^3/uL (140-400); RED BLOOD COUNT 4.68 x10^6/uL (4.30-5.70); WHITE BLOOD COUNT 11.9 x10^3/uL (4.0-11.0)
[2017-03-20 04:28] LABS: CREATININE 0.7 mg/dL (0.7-1.3); GFR 126.9; POTASSIUM 3.5 mmol/L (3.5-5.1)
--- NOTE | 2017-03-20 06:56 | EKG ---
[facility] [address] [place] [address] Test Date: 2017-03-19 Test Time: 14:33:07 Pat Name: TIFFANY HERRING Department: Room: [facility] Gender: M [employer] Job Titles: : 1980 Requested By: JORJE MILES Order Number: [id number] Reading MD: Shea Ryan Measurements Intervals Fertile Rate: 54 P: 41 ND: 142 QRS: 95 QRSD: 108 T: 64 QT: 412 QTc: 392 Interpretive Statements SINUS RHYTHM RIGHTWARD AXIS INCOMPLETE RIGHT BUNDLE BRANCH BLOCK T ABNORMALITY IN ANTEROSEPTAL LEADS RI6.01 Unconfirmed report Compared to ECG 07/31/2014 07:40:02 Right-axis deviation now present T-wave abnormality now present Electronically Signed On 03-20-2017 20:43:29 CDT by Shea Ryan
[2017-03-20 07:00] VITALS: BP 120/77
[2017-03-20] MEDS: IV NORMAL SALINE 1000ML BAG 1,000 ML IV SCH ×2 (09:20→23:50)
[2017-03-20] MEDS ORDERED: CALCIUM CARBONATE 500 MG TAB.CHEW PO PRN (09:45)
[2017-03-20] MEDS ORDERED: BARIUM SULFATE 60% 355 ML SUSP PO ONE (10:15)
[2017-03-20] MEDS ORDERED: BARIUM SULFATE 40% (APPLE) 148 GM PWD. PO ONE (10:15)
[2017-03-20] MEDS ORDERED: SIMETHICONE/SOD BICARB/CITRIC ACID PACKET. PO ONE (10:15)
--- NOTE | 2017-03-20 10:47 | PDOC2 ---
GI CONSULT Reason For Consult: N/v HPI: HPI: 37 y/o white male known to GI from previous admission in 08/2016. H/o cyclic vomiting syndrome, admitted w/ n/v since 2:00 a.m. 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 Prior to this, believes last flare occurred in 11/2015. Has been evaluated by Dr. Woo at and says fairly recent EGD showed minimal reflux, also reports 4 hr GES showed minimally delayed gastric emptying - was told he no longer has gastroparesis. Has been off of all medications (GI-related and for pain and otherwise) since 06/2016. Chronic right-sided pain attributed to neurofibromatosis is a little worse w/ retching. Has a new job which he enjoys and has gained weight. Currently experiencing some heartburn which usually happens after significant vomiting. Has had some diarrhea (typical of flares). No vomiting or stooling today. Last colonoscopy in 2011. Tolerated clear liquids this morning, feeling better , would like to advance diet. Receiving Dilaudid. PMH: PMH: neurofibromatosis, gastroparesis, GERD, MRSA, cholecystectomy FH: Family History: No pertinent hx Social History: Smoke: 1 pack per day ALCOHOL: none Drugs: Marijuana (twice weekly) ROS: GEN: Denies fevers, chills, sweats HEENT: Denies blurred vision, sore throat CV: Denies chest pain RESP: Denies shortness of air, cough GI: Per HPI : Denies hematuria, dysuria ENDO: +weight gain NEURO: Denies confusion, dizziness MSK: Denies weakness, joint pain/swelling SKIN: Denies jaundice, pruritus VItals: Vitals: Vital Signs Date Time Temp Pulse Resp B/P Pulse Ox O2 Delivery O2 Flow Rate FiO2 03/20/17 10:16 Room Air 03/20/17 07:00 97.9 74 19 120/77 97 97.9 Labs: Labs: Laboratory Tests Test 03/19/17 15:50 03/20/17 03:20 White Blood Count 9.0x10^3/uL (4.0-11.0) 11.9x10^3/uL (4.0-11.0) Red Blood Count 5.18x10^6/uL (4.30-5.70) 4.68x10^6/uL (4.30-5.70) Hemoglobin 16.9g/dL (13.0-17.5) 15.1g/dL (13.0-17.5) Hematocrit 49.1% (39.0-53.0) 45.2% (39.0-53.0) Mean Corpuscular Volume 95fL (79-100) 97fL (79-100) Mean Corpuscular Hemoglobin 33pg (25-35) 32pg (25-35) Mean Corpuscular Hemoglobin Concent 35g/dL (31-37) 33g/dL (31-37) Red Cell Distribution Width 14.1% (11.5-14.5) 14.0% (11.5-14.5) Platelet Count 274x10^3/uL (140-400) 253x10^3/uL (140-400) Neutrophils (%) (Auto) 82% (31-73) 77% (31-73) Lymphocytes (%) (Auto) 13% (24-48) 12% (24-48) Monocytes (%) (Auto) 4% (0-9) 11% (0-9) Eosinophils (%) (Auto) 1% (0-3) 0% (0-3) Basophils (%) (Auto) 0% (0-3) 0% (0-3) Neutrophils # (Auto) 7.4x10^3uL (1.8-7.7) 9.1x10^3uL (1.8-7.7) Lymphocytes # (Auto) 1.2x10^3/uL (1.0-4.8) 1.4x10^3/uL (1.0-4.8) Monocytes # (Auto) 0.4x10^3/uL (0.0-1.1) 1.3x10^3/uL (0.0-1.1) Eosinophils # (Auto) 0.1x10^3/uL (0.0-0.7) 0.0x10^3/uL (0.0-0.7) Basophils # (Auto) 0.0x10^3/uL (0.0-0.2) 0.0x10^3/uL (0.0-0.2) Sodium Level 142mmol/L (136-145) 139mmol/L (136-145) Potassium Level 4.2mmol/L (3.5-5.1) 3.5mmol/L (3.5-5.1) Chloride Level 105mmol/L (98-107) 103mmol/L (98-107) Carbon Dioxide Level 29mmol/L (21-32) 29mmol/L (21-32) Anion Gap 8 (6-14) 7 (6-14) Blood Urea Nitrogen 16mg/dL (8-26) 14mg/dL (8-26) Creatinine 0.9mg/dL (0.7-1.3) 0.7mg/dL (0.7-1.3) Estimated GFR (Cockcroft-Gault) 95.0 126.9 BUN/Creatinine Ratio 18 (6-20) Glucose Level 132mg/dL (70-99) 103mg/dL (70-99) Calcium Level 9.8mg/dL (8.5-10.1) 9.0mg/dL (8.5-10.1) Total Bilirubin 0.5mg/dL (0.2-1.0) Aspartate Amino Transf (AST/SGOT) 27U/L (15-37) Alanine Aminotransferase (ALT/SGPT) 36U/L (16-63) Alkaline Phosphatase 101U/L (46-116) Creatine Kinase 397U/L (39-308) Creatine Kinase MB (Mass) 20.8ng/mL (0.0-3.6) Creatine Kinase MB Relative Index 5.2% (0-4) Total Protein 8.4g/dL (6.4-8.2) Albumin 4.3g/dL (3.4-5.0) Albumin/Globulin Ratio 1.0 (1.0-1.7) Lipase 104U/L (73-393) Allergies: Coded Allergies: morphine (Verified Adverse Reaction, Severe, "makes me crazy" Tolerates Dilaudid,Oxycodone, 12/09/16) acetaminophen (Verified Adverse Reaction, Intermediate, vomiting, 12/09/16) Medications: Current Medications Medications (Trade) Dose Ordered Sig/Noah Route PRN Reason Start Time Stop Time Status Last Admin Dose Admin Sodium Chloride (Iv Sodium Chloride 0.9% 1000ml Bag) 1,000 ml @ 1,000 mls/hr Q1H IV 03/19/17 14:46 03/19/17 15:45 DC 03/19/17 15:32 Sodium Chloride (Normal Saline Flush) 10 ml QSHIFT PRN IV AFTER MEDS AND BLOOD DRAWS 03/19/17 15:00 03/19/17 15:30 Ondansetron HCl (Zofran) 4 mg 1X ONCE IV 03/19/17 15:00 03/19/17 15:01 DC 03/19/17 15:32 Ketamine HCl 20 mg 1X ONCE IV 03/19/17 15:00 03/19/17 15:01 DC 03/19/17 15:42 Ondansetron HCl (Zofran) 4 mg 1X ONCE IV 03/19/17 16:45 03/19/17 16:46 DC 03/19/17 17:08 Ondansetron HCl 4 mg 4 mg PRN Q8HRS PRN IV NAUSEA/VOMITING 03/19/17 18:15 03/20/17 03:25 Sodium Chloride (Iv Sodium Chloride 0.9% 1000ml Bag) 1,000 ml @ 75 mls/hr [id number] IV 03/19/17 18:15 03/20/17 09:20 Hydromorphone HCl (Dilaudid) 0.5 mg PRN Q2HR PRN IVP PAIN 03/19/17 19:30 03/20/17 10:16 Imaging: Imaging: Acute abdomen series with chest 03/19/17 Gas is present in scattered loops of large and small bowel without significant bowel distention. No free air is present in the abdomen. There is no evidence of organomegaly. Surgical clips in the right upper quadrant suggest a previous cholecystectomy. A small right lower pelvic calcification has been shown to be related to a small pelvic mass in this patient with known neurofibromatosis. The heart size is normal. No pulmonary infiltrates are seen. There is no evidence of pleural fluid. 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 IMPRESSION: 1. Chronic findings as described above. 2. No acute abdominal abnormality is detected. PE: GEN: NAD, thin HEENT: Atraumatic, PERRL LUNGS: CTAB HEART: RRR ABD: NABS, S/ND, right sided tenderness EXTREMITY: No edema SKIN: No rashes, no jaundice NEURO/PSYCH: A & O 3 A/P: A/P: N/v, abd pain -h/o CVS, GI eval at [facility] w/ EGD (minimal reflux) and basically normal GES ( although note made of abnormal GES here in 2014) -off all meds since 06/2016 -this episode attributed to stress -chronic pain 2/2 neurofibromas -note regular marijuana use Heartburn -common for him after episodes of vomiting -- Improved, tolerating PO. Will check upper GI r/o volvulus. Add PPI and Tums. After imaging, can ADAT. ASHUTOSH WEBBER March 20, 2017 10:47
[2017-03-20 11:00] VITALS: BP 119/76
[2017-03-20] MEDS: PANTOPRAZOLE 40 MG TABLET.DR. PO SCH (12:48)
--- NOTE | 2017-03-20 12:52 | PDOC ---
PROGRESS NOTES Chief Complaint Chief Complaint 1. Intractable nausea and vomiting, suspected cyclical vomiting syndrome 2. Abdominal pain due to above. 3 denies gastroparesis 4. gerd 5. neurofibromatosis plan: fu with GI KUB with contrast as per GI advance diet if neg KUB ivf pain control dc tmr History of Present Illness History of Present Illness off all meds including reglan for half year N/V better today Vitals Vitals Vital Signs Date Time Temp Pulse Resp B/P Pulse Ox O2 Delivery O2 Flow Rate FiO2 03/20/17 11:00 97.9 70 19 119/76 98 Room Air 97.9 Physical Exam General: Alert, Oriented X3, Cooperative Heart: Regular rate, Normal S1, Normal S2 Lungs: Clear Abdomen: Normal bowel sounds, Soft, No tenderness Extremities: No clubbing, No cyanosis Skin: No rashes Labs LABS Laboratory Tests Test 03/19/17 15:50 03/20/17 03:20 White Blood Count 9.0x10^3/uL (4.0-11.0) 11.9x10^3/uL (4.0-11.0) Red Blood Count 5.18x10^6/uL (4.30-5.70) 4.68x10^6/uL (4.30-5.70) Hemoglobin 16.9g/dL (13.0-17.5) 15.1g/dL (13.0-17.5) Hematocrit 49.1% (39.0-53.0) 45.2% (39.0-53.0) Mean Corpuscular Volume 95fL (79-100) 97fL (79-100) Mean Corpuscular Hemoglobin 33pg (25-35) 32pg (25-35) Mean Corpuscular Hemoglobin Concent 35g/dL (31-37) 33g/dL (31-37) Red Cell Distribution Width 14.1% (11.5-14.5) 14.0% (11.5-14.5) Platelet Count 274x10^3/uL (140-400) 253x10^3/uL (140-400) Neutrophils (%) (Auto) 82% (31-73) 77% (31-73) Lymphocytes (%) (Auto) 13% (24-48) 12% (24-48) Monocytes (%) (Auto) 4% (0-9) 11% (0-9) Eosinophils (%) (Auto) 1% (0-3) 0% (0-3) Basophils (%) (Auto) 0% (0-3) 0% (0-3) Neutrophils # (Auto) 7.4x10^3uL (1.8-7.7) 9.1x10^3uL (1.8-7.7) Lymphocytes # (Auto) 1.2x10^3/uL (1.0-4.8) 1.4x10^3/uL (1.0-4.8) Monocytes # (Auto) 0.4x10^3/uL (0.0-1.1) 1.3x10^3/uL (0.0-1.1) Eosinophils # (Auto) 0.1x10^3/uL (0.0-0.7) 0.0x10^3/uL (0.0-0.7) Basophils # (Auto) 0.0x10^3/uL (0.0-0.2) 0.0x10^3/uL (0.0-0.2) Sodium Level 142mmol/L (136-145) 139mmol/L (136-145) Potassium Level 4.2mmol/L (3.5-5.1) 3.5mmol/L (3.5-5.1) Chloride Level 105mmol/L (98-107) 103mmol/L (98-107) Carbon Dioxide Level 29mmol/L (21-32) 29mmol/L (21-32) Anion Gap 8 (6-14) 7 (6-14) Blood Urea Nitrogen 16mg/dL (8-26) 14mg/dL (8-26) Creatinine 0.9mg/dL (0.7-1.3) 0.7mg/dL (0.7-1.3) Estimated GFR (Cockcroft-Gault) 95.0 126.9 BUN/Creatinine Ratio 18 (6-20) Glucose Level 132mg/dL (70-99) 103mg/dL (70-99) Calcium Level 9.8mg/dL (8.5-10.1) 9.0mg/dL (8.5-10.1) Total Bilirubin 0.5mg/dL (0.2-1.0) Aspartate Amino Transf (AST/SGOT) 27U/L (15-37) Alanine Aminotransferase (ALT/SGPT) 36U/L (16-63) Alkaline Phosphatase 101U/L (46-116) Creatine Kinase 397U/L (39-308) Creatine Kinase MB (Mass) 20.8ng/mL (0.0-3.6) Creatine Kinase MB Relative Index 5.2% (0-4) Total Protein 8.4g/dL (6.4-8.2) Albumin 4.3g/dL (3.4-5.0) Albumin/Globulin Ratio 1.0 (1.0-1.7) Lipase 104U/L (73-393) Review of Systems Review of Systems no fever, chills, sob or chest pain Assessment and Plan Assessmemt and Plan Problems Medical Problems: (1) Abdominal pain Status: Acute (2) Cyclic vomiting syndrome Status: Acute (3) Gastroparesis Status: Acute Problems: Comment Review of Relevant I have reviewed the following items theresa (where applicable) has been applied. Labs Laboratory Tests Test 03/19/17 15:50 03/20/17 03:20 White Blood Count 9.0x10^3/uL (4.0-11.0) 11.9x10^3/uL (4.0-11.0) Red Blood Count 5.18x10^6/uL (4.30-5.70) 4.68x10^6/uL (4.30-5.70) Hemoglobin 16.9g/dL (13.0-17.5) 15.1g/dL (13.0-17.5) Hematocrit 49.1% (39.0-53.0) 45.2% (39.0-53.0) Mean Corpuscular Volume 95fL (79-100) 97fL (79-100) Mean Corpuscular Hemoglobin 33pg (25-35) 32pg (25-35) Mean Corpuscular Hemoglobin Concent 35g/dL (31-37) 33g/dL (31-37) Red Cell Distribution Width 14.1% (11.5-14.5) 14.0% (11.5-14.5) Platelet Count 274x10^3/uL (140-400) 253x10^3/uL (140-400) Neutrophils (%) (Auto) 82% (31-73) 77% (31-73) Lymphocytes (%) (Auto) 13% (24-48) 12% (24-48) Monocytes (%) (Auto) 4% (0-9) 11% (0-9) Eosinophils (%) (Auto) 1% (0-3) 0% (0-3) Basophils (%) (Auto) 0% (0-3) 0% (0-3) Neutrophils # (Auto) 7.4x10^3uL (1.8-7.7) 9.1x10^3uL (1.8-7.7) Lymphocytes # (Auto) 1.2x10^3/uL (1.0-4.8) 1.4x10^3/uL (1.0-4.8) Monocytes # (Auto) 0.4x10^3/uL (0.0-1.1) 1.3x10^3/uL (0.0-1.1) Eosinophils # (Auto) 0.1x10^3/uL (0.0-0.7) 0.0x10^3/uL (0.0-0.7) Basophils # (Auto) 0.0x10^3/uL (0.0-0.2) 0.0x10^3/uL (0.0-0.2) Sodium Level 142mmol/L (136-145) 139mmol/L (136-145) Potassium Level 4.2mmol/L (3.5-5.1) 3.5mmol/L (3.5-5.1) Chloride Level 105mmol/L (98-107) 103mmol/L (98-107) Carbon Dioxide Level 29mmol/L (21-32) 29mmol/L (21-32) Anion Gap 8 (6-14) 7 (6-14) Blood Urea Nitrogen 16mg/dL (8-26) 14mg/dL (8-26) Creatinine 0.9mg/dL (0.7-1.3) 0.7mg/dL (0.7-1.3) Estimated GFR (Cockcroft-Gault) 95.0 126.9 BUN/Creatinine Ratio 18 (6-20) Glucose Level 132mg/dL (70-99) 103mg/dL (70-99) Calcium Level 9.8mg/dL (8.5-10.1) 9.0mg/dL (8.5-10.1) Total Bilirubin 0.5mg/dL (0.2-1.0) Aspartate Amino Transf (AST/SGOT) 27U/L (15-37) Alanine Aminotransferase (ALT/SGPT) 36U/L (16-63) Alkaline Phosphatase 101U/L (46-116) Creatine Kinase 397U/L (39-308) Creatine Kinase MB (Mass) 20.8ng/mL (0.0-3.6) Creatine Kinase MB Relative Index 5.2% (0-4) Total Protein 8.4g/dL (6.4-8.2) Albumin 4.3g/dL (3.4-5.0) Albumin/Globulin Ratio 1.0 (1.0-1.7) Lipase 104U/L (73-393) Laboratory Tests Test 03/19/17 15:50 03/20/17 03:20 White Blood Count 9.0x10^3/uL (4.0-11.0) 11.9x10^3/uL (4.0-11.0) Red Blood Count 5.18x10^6/uL (4.30-5.70) 4.68x10^6/uL (4.30-5.70) Hemoglobin 16.9g/dL (13.0-17.5) 15.1g/dL (13.0-17.5) Hematocrit 49.1% (39.0-53.0) 45.2% (39.0-53.0) Mean Corpuscular Volume 95fL (79-100) 97fL (79-100) Mean Corpuscular Hemoglobin 33pg (25-35) 32pg (25-35) Mean Corpuscular Hemoglobin Concent 35g/dL (31-37) 33g/dL (31-37) Red Cell Distribution Width 14.1% (11.5-14.5) 14.0% (11.5-14.5) Platelet Count 274x10^3/uL (140-400) 253x10^3/uL (140-400) Neutrophils (%) (Auto) 82% (31-73) 77% (31-73) Lymphocytes (%) (Auto) 13% (24-48) 12% (24-48) Monocytes (%) (Auto) 4% (0-9) 11% (0-9) Eosinophils (%) (Auto) 1% (0-3) 0% (0-3) Basophils (%) (Auto) 0% (0-3) 0% (0-3) Neutrophils # (Auto) 7.4x10^3uL (1.8-7.7) 9.1x10^3uL (1.8-7.7) Lymphocytes # (Auto) 1.2x10^3/uL (1.0-4.8) 1.4x10^3/uL (1.0-4.8) Monocytes # (Auto) 0.4x10^3/uL (0.0-1.1) 1.3x10^3/uL (0.0-1.1) Eosinophils # (Auto) 0.1x10^3/uL (0.0-0.7) 0.0x10^3/uL (0.0-0.7) Basophils # (Auto) 0.0x10^3/uL (0.0-0.2) 0.0x10^3/uL (0.0-0.2) Sodium Level 142mmol/L (136-145) 139mmol/L (136-145) Potassium Level 4.2mmol/L (3.5-5.1) 3.5mmol/L (3.5-5.1) Chloride Level 105mmol/L (98-107) 103mmol/L (98-107) Carbon Dioxide Level 29mmol/L (21-32) 29mmol/L (21-32) Anion Gap 8 (6-14) 7 (6-14) Blood Urea Nitrogen 16mg/dL (8-26) 14mg/dL (8-26) Creatinine 0.9mg/dL (0.7-1.3) 0.7mg/dL (0.7-1.3) Estimated GFR (Cockcroft-Gault) 95.0 126.9 BUN/Creatinine Ratio 18 (6-20) Glucose Level 132mg/dL (70-99) 103mg/dL (70-99) Calcium Level 9.8mg/dL (8.5-10.1) 9.0mg/dL (8.5-10.1) Total Bilirubin 0.5mg/dL (0.2-1.0) Aspartate Amino Transf (AST/SGOT) 27U/L (15-37) Alanine Aminotransferase (ALT/SGPT) 36U/L (16-63) Alkaline Phosphatase 101U/L (46-116) Creatine Kinase 397U/L (39-308) Creatine Kinase MB (Mass) 20.8ng/mL (0.0-3.6) Creatine Kinase MB Relative Index 5.2% (0-4) Total Protein 8.4g/dL (6.4-8.2) Albumin 4.3g/dL (3.4-5.0) Albumin/Globulin Ratio 1.0 (1.0-1.7) Lipase 104U/L (73-393) Medications Current Medications Sodium Chloride (Iv Sodium Chloride 0.9% 1000ml Bag) 1,000 ml @ 1,000 mls/hr Q1H IV Last administered on 03/19/17 15:32; Start 03/19/17 at 14:46; Stop at 15:45; Status DC Sodium Chloride (Normal Saline Flush) 10 ml QSHIFT PRN IV AFTER MEDS AND BLOOD DRAWS Last administered on 03/19/17 15:30; Start 03/19/17 at 15:00 Ondansetron HCl (Zofran) 4 mg 1X ONCE IV Last administered on 03/19/17 15:32; Start 03/19/17 at 15:00; Stop 03/19/17 at 15:01; Status DC Haloperidol Lactate (Haldol) 5 mg 1X ONCE IVP ; Start 03/19/17 at 15:00; Stop at 15:01; Status DC Ketamine HCl 20 mg 1X ONCE IV Last administered on 03/19/17 15:42; Start at 15:00; Stop 03/19/17 at 15:01; Status DC Ondansetron HCl (Zofran) 4 mg 1X ONCE IV Last administered on 03/19/17 17:08; Start 03/19/17 at 16:45; Stop 03/19/17 at 16:46; Status DC Hydralazine HCl (Apresoline) 10 mg PRN Q4HRS PRN IVP ELEVATED BP, SEE COMMENTS ; Start 03/19/17 at 18:15 Ondansetron HCl (Zofran) 4 mg PRN Q8HRS PRN IV NAUSEA/VOMITING Last administered on 03/20/17 03:25; Start 03/19/17 at 18:15 Albuterol Sulfate 2.5 mg 2.5 mg PRN Q4HRS PRN NEB SHORTNESS OF BREATH; Start at 18:15 Sodium Chloride (Iv Sodium Chloride 0.9% 1000ml Bag) 1,000 ml @ 75 mls/hr [id number] IV Last administered on 03/20/17 09:20; Start 03/19/17 at 18:15 Fentanyl Citrate (Fentanyl 2ml Vial) 25 mcg PRN Q4HRS PRN IV PAIN; Start at 18:15; Stop 03/19/17 at 19:22; Status DC Hydromorphone HCl (Dilaudid) 0.5 mg PRN Q2HR PRN IVP PAIN Last administered on 03/20/17 10:16; Start 03/19/17 at 19:30 Calcium Carbonate/ Glycine (Tums) 500 mg PRN AFTMEALHC PRN PO INDIGESTION; Start 03/20/17 at 09:45 Pantoprazole Sodium (Protonix) 40 mg DAILYAC PO ; Start 03/20/17 at 10:00 Barium Sulfate (Liquid E-Z Paque) 355 ml 1X ONCE PO ; Start 03/20/17 at 10:15; Stop 03/20/17 at 10:16; Status DC Barium Sulfate (Varibar Thin Liquid Apple) 148 gm 1X ONCE PO ; Start 03/20/17 at 10:15; Stop 03/20/17 at 10:16; Status DC Simethicone/ Sodium Bicarb/ Citric Ac (E-Z-Gas) 1 packet 1X ONCE PO ; Start 03/20/17 at 10:15; Stop 03/20/17 at 10:16; Status DC Active Scripts Active Reglan (Metoclopramide Hcl) 10 Mg Tablet 1 Tab PO TID PRN Ocuflox (Ofloxacin) 5 Ml Drops 1-2 Drop EACHEYE Q4HRS 7 Days Reglan (Metoclopramide Hcl) 10 Mg Tablet 1 Tab PO TID PRN Phenergan (Promethazine HCl) 25 Mg Supp.rect 25 Mg RC Q6HRS PRN Reported Zofran (Ondansetron Hcl) 8 Mg Tablet 1 Tab PO PRN Q4HRS PRN Vitals/I & O Vital Sign - Last 24 Hours 03/19/17 03/19/17 03/19/17 03/19/17 14:30 16:04 17:50 19:00 Temp 97.6 97.5 97.9 97.6 97.5 97.9 Pulse 60 54 67 75 Resp 16 16 18 18 B/P 143/76 120/60 119/71 115/61 Pulse Ox 100 98 100 97 O2 Delivery Room Air Room Air Room Air Room Air 03/19/17 03/19/17 03/19/17 03/19/17 19:34 20:00 20:00 21:59 Pulse Ox 100 100 O2 Delivery Room Air Room Air 03/19/17 03/20/17 03/20/17 03/20/17 23:00 00:04 03:00 03:26 Temp 96.6 97.9 96.6 97.9 Pulse 62 77 Resp 18 18 B/P 119/70 116/77 Pulse Ox 99 99 98 99 O2 Delivery Room Air Room Air Room Air Room Air 03/20/17 03/20/17 03/20/17 03/20/17 03:56 06:30 07:00 07:30 Temp 97.9 97.9 Pulse 74 Resp 19 B/P 120/77 Pulse Ox 99 99 97 O2 Delivery Room Air Room Air Room Air 03/20/17 03/20/17 03/20/17 08:00 10:16 11:00 Temp 97.9 97.9 Pulse 70 Resp 19 B/P 119/76 Pulse Ox 98 O2 Delivery Room Air Room Air Room Air Intake and Output 03/19/17 03/19/17 03/20/17 15:00 23:00 07:00 Intake Total 1000 ml 600 ml Output Total 950 ml Balance 1000 ml -350 ml LUCY MEREDITH MD March 20, 2017 12:52
[2017-03-20] MEDS ORDERED: HYDROcodone/APAP 5/325MG 1 TAB TABLET PO PRN (13:00)
[2017-03-20 15:00] VITALS: BP 119/80
[2017-03-20] MEDS ORDERED: oxyCODONE IR 5 MG TABLET PO PRN (18:15)
[2017-03-20 19:35] VITALS: BP 121/76
[2017-03-20 23:08] VITALS: BP 126/74
[2017-03-21] MEDS: HYDROmorphone 2 MG/ML VIAL IVP PRN ×3 (02:59→11:01)
[2017-03-21 03:00] VITALS: BP 124/82
[2017-03-21 07:00] VITALS: BP 129/78
[2017-03-21] MEDS: ONDANSETRON PF 4 MG/2 ML VIAL. IV PRN (07:15)
[2017-03-21] MEDS: PANTOPRAZOLE 40 MG TABLET.DR. PO SCH (07:17)
[2017-03-21 10:14] LABS: BASO % 1 % (0-3); EOS % 2 % (0-3); HEMATOCRIT 43.4 % (39.0-53.0); HEMOGLOBIN 14.9 g/dL (13.0-17.5); LYMPH # 1.5 x10^3/uL (1.0-4.8); LYMPH % 20 % (24-48); MEAN CORPUSCULAR HEMOGLOBIN 32 pg (25-35); MEAN CORPUSCULAR HGB CONC 34 g/dL (31-37); MEAN CORPUSCULAR VOLUME 94 fL (79-100); MONO % 6 % (0-9); NEUT % 71 % (31-73); PLATELET COUNT 213 x10^3/uL (140-400); RED BLOOD COUNT 4.61 x10^6/uL (4.30-5.70); RED CELL DISTRIBUTION WIDTH 13.7 % (11.5-14.5); WHITE BLOOD COUNT 7.6 x10^3/uL (4.0-11.0)
[2017-03-21 10:27] LABS: CALCIUM 8.9 mg/dL (8.5-10.1); CREATININE 0.8 mg/dL (0.7-1.3); GFR 108.8; POTASSIUM 3.8 mmol/L (3.5-5.1)
[2017-03-21 11:00] VITALS: BP 128/84
--- NOTE | 2017-03-21 11:07 | PDOC ---
Subjective: Subjective: Ate 3/4 of hamburger for lunch, now "letting it settle." Some nausea, no vomiting. Chronic pain stable. BM yesterday, none today. Objective: Objective: Declined UGI yesterday. Per RN, tolerating PO, still getting Dilaudid and Zofran. Likely DC today. Vital Signs: Vital Signs Date Time Temp Pulse Resp B/P (MAP) Pulse Ox O2 Delivery O2 Flow Rate FiO2 03/21/17 11:01 Room Air 03/21/17 07:00 97.8 65 16 129/78 (95) 94 97.8 Labs: Laboratory Tests Test 03/21/17 09:50 White Blood Count 7.6 x10^3/uL Red Blood Count 4.61 x10^6/uL Hemoglobin 14.9 g/dL Hematocrit 43.4 % Mean Corpuscular Volume 94 fL Mean Corpuscular Hemoglobin 32 pg Mean Corpuscular Hemoglobin Concent 34 g/dL Red Cell Distribution Width 13.7 % Platelet Count 213 x10^3/uL Neutrophils (%) (Auto) 71 % Lymphocytes (%) (Auto) 20 % Monocytes (%) (Auto) 6 % Eosinophils (%) (Auto) 2 % Basophils (%) (Auto) 1 % Neutrophils # (Auto) 5.4 x10^3uL Lymphocytes # (Auto) 1.5 x10^3/uL Monocytes # (Auto) 0.5 x10^3/uL Eosinophils # (Auto) 0.2 x10^3/uL Basophils # (Auto) 0.0 x10^3/uL Sodium Level 139 mmol/L Potassium Level 3.8 mmol/L Chloride Level 103 mmol/L Carbon Dioxide Level 29 mmol/L Anion Gap 7 Blood Urea Nitrogen 13 mg/dL Creatinine 0.8 mg/dL Estimated GFR (Cockcroft-Gault) 108.8 Glucose Level 104 mg/dL Calcium Level 8.9 mg/dL PE: GEN: NAD LUNGS: clear anteriorly HEART: RRR ABD: right-sided tenderness similar to yesterday NEURO/PSYCH: A & O 3 A/P: N/v, abd pain - improved -h/o CVS, previous GI eval at includes EGD, GES, colonoscopy; prefers to follow w/ GI there ---> declined UGI here -off all meds since 06/2016 -chronic pain 2/2 neurofibromas -started Tums and PPI yesterday for heartburn -- DC okay per GI, follow-up w/ [facility] - says he has regular appointments every 3 months. ASHUTOSH WEBBER March 21, 2017 11:07
--- NOTE | 2017-03-21 12:06 | PDOC3 ---
Discharge Summary [facility] Date of Admission: March 19, 2017 Discharge Date: March 21, 2017 Admitting Diagnosis 1. Intractable nausea and vomiting, suspected cyclical vomiting syndrome 2. Abdominal pain due to above. 3 denies gastroparesis 4. gerd 5. neurofibromatosis Problems: Final Diagnosis CONSULTS gi Brief Hospital Course Mr. Bazan is a 37 old M, with h/o cyclical vomiting syndrome, fu in , currently off all meds, came for vomiting, abd pain. pt able to tolerate some food now, refused to do AXR with contrast by gi, saying too much radiation already. dc home, pt doesnot need any pain meds. dc time 35min General: Alert, Oriented X3, Cooperative Heart: Regular rate, Normal S1, Normal S2 Lungs: Clear Abdomen: Normal bowel sounds, Soft, No tenderness Extremities: No clubbing, No cyanosis Skin: No rashes Patient History: Family history: Gastrointestinal disease (situation) 33 FATHER Family history: Hypertension (situation) 33 FATHER 32 MOTHER Unknown Problems: Disposition home CONDITION AT DISCHARGE: Improved, Stable Diet gi soft No Active Prescriptions or Reported Meds Follow Up own GI in LUCY MEREDITH MD March 21, 2017 12:06
[2017-03-21] MEDS: IV NORMAL SALINE 1000ML BAG 1,000 ML IV SCH (13:49)
== END 2017-03-21 13:00 | disposition home or self-care (01) | DRG 103 ==
LOC: ER 14:24 → UNDOADMOB 16:10 → 5 NORTH 16:10 → OBSVTOIN 19:21
PROVIDERS: ADMIT Internal Medicine; ATTEND Internal Medicine
DX: G43.A1 Cyclical vomiting, in migraine, intractable (principal); K21.9 Gastro-esophageal reflux disease without esophagitis; Q85.00 Neurofibromatosis, unspecified; F17.210 Nicotine dependence, cigarettes, uncomplicated; G89.29 Other chronic pain; F11.10 Opioid abuse, uncomplicated; F12.90 Cannabis use, unspecified, uncomplicated; F32.9 Major depressive disorder, single episode, unspecified; F41.9 Anxiety disorder, unspecified; Z87.01 Personal history of pneumonia (recurrent); Z82.49 Family history of ischemic heart disease and other diseases of the circulatory system; Z90.49 Acquired absence of other specified parts of digestive tract; Z88.1 Allergy status to other antibiotic agents; Z88.5 Allergy status to narcotic agent
CPT/HCPCS: 36415; 74022; 80048; 80053; 82553; 83690; 85027; 93005; 96361; 96374; 96375; 96376; J1170; J2405; J3490; J7030; 99285-25

== ENCOUNTER 2017-04-24 06:36 | Emergency (ER) | payer OTHER, MEDICAID ==
[~2017-04-24] VITALS: Ht 190.5 cm; Wt 59.0 kg
[~2017-04-24 06:36] MED LIST changes: -OXYC10TA32 PO; +OXYC10TA45 PO
[2017-04-24] MEDS ORDERED: IV NORMAL SALINE 1000ML BAG 1,000 ML IV SCH (07:01)
--- NOTE | 2017-04-24 07:04 | PHYS DOC ---
Past Medical History Past Medical History: Cyclic Vomiting, Pneumonia, Other Additional Past Medical Histor: MUSCULAR DYSTROPHY, neurofibromatosis, gastroparesis, drug seeking behavior Past Surgical History: Cholecystectomy Alcohol Use: Rarely Drug Use: Marijuana Adult General Chief Complaint Chief Complaint: NAUSEA/VOMITING/DIARRHA HPI HPI Patient is a 37 year old male with cyclic vomiting syndrome and drug seeking behavior that follows at [facility] who presents with female significant other for typical constant right abdominal pain associated with multiple episodes of nbnb emesis and nb diarrhea that started yesterday. He states he is not taking any medications at home due to his GI doctor removing all of them. States he has had much fewer exacerbations of illness since being off of all medications ( although he has been here multiple times in the past year for this). He denies back pain, dysuria, hematuria, f/c, chest pain, cough, rash. Review of Systems Review of Systems Constitutional: Denies fever or chills [] Eyes: Denies change in visual acuity, redness, or eye pain [] HENT: Denies nasal congestion or sore throat [] Respiratory: Denies cough or shortness of breath [] Cardiovascular: No additional information not addressed in HPI [] GI: Denies bloody stools or bloody emesis [] : Denies dysuria or hematuria [] Musculoskeletal: Denies back pain or joint pain [] Integument: Denies rash or skin lesions [] Neurologic: Denies headache, focal weakness or sensory changes [] Endocrine: Denies polyuria or polydipsia [] Current Medications Current Medications Current Medications Medications (Trade) Dose Ordered Sig/Noah Start Time Stop Time Status Last Admin Dose Admin Famotidine (Pepcid) 20 mg 1X ONCE 04/24/17 07:15 04/24/17 07:16 DC 04/24/17 08:07 20 MG Haloperidol Lactate (Haldol) 2 mg 1X ONCE 04/24/17 07:15 04/24/17 07:16 DC Ketorolac Tromethamine (Toradol) 10 mg 1X ONCE 04/24/17 07:15 04/24/17 07:16 DC 04/24/17 07:58 10 MG Metoclopramide HCl (Reglan) 10 mg 1X ONCE 04/24/17 07:15 04/24/17 07:16 DC 04/24/17 07:55 10 MG Multi-Ingredient Mouthwash/Gargle (Gi Cocktail Single Dose) 15 ml 1X ONCE 04/24/17 07:15 04/24/17 07:16 DC 04/24/17 08:00 15 ML Potassium Chloride (Klor-Con) 40 meq 1X ONCE 04/24/17 09:00 04/24/17 09:01 DC Sodium Chloride 1,000 ml @ 1,000 mls/hr Q1H 04/24/17 07:01 04/24/17 08:00 DC 04/24/17 07:57 1,000 MLS/HR Allergies Allergies Allergies Coded Allergies Type Severity Reaction Last Updated Verified acetaminophen Allergy Intermediate vomiting, and hives 03/20/17 Yes walnut Allergy Unknown Rash 03/21/17 Yes morphine Adverse Reaction Severe "makes me crazy" Tolerates Dilaudid, Oxycodone 12/09/16 Yes Physical Exam Physical Exam Constitutional: Well developed, well nourished, no acute distress, non-toxic appearance. [] HENT: Normocephalic, atraumatic, bilateral external ears normal, oropharynx moist, nose normal. [] Eyes: PERRLA, EOMI. [] Neck: Normal range of motion, supple. [] Cardiovascular:Heart rate regular rhythm [] Lungs & Thorax: Bilateral breath sounds clear to auscultation [] Abdomen: Bowel sounds normal, soft, moderate right abdominal tenderness, no guarding or rebound. [] Skin: Warm, dry, no erythema, no rash. [] Back: Normal ROM. [] Extremities: No tenderness, ROM intact, no edema. [] Neurologic: Alert and oriented X 3, normal motor function, normal sensory function, no focal deficits noted. [] Psychologic: Affect normal, judgement normal, mood normal. [] Current Patient Data Vital Signs Vital Signs Date Time Temp Pulse Resp B/P (MAP) Pulse Ox O2 Delivery O2 Flow Rate FiO2 04/24/17 06:45 98.1 74 16 115/73 (87) 100 Room Air 98.1 Lab Values Laboratory Tests Test 04/24/17 08:15 White Blood Count 13.6 x10^3/uL (4.0-11.0) H Red Blood Count 5.14 x10^6/uL (4.30-5.70) Hemoglobin 16.6 g/dL (13.0-17.5) Hematocrit 48.0 % (39.0-53.0) Mean Corpuscular Volume 93 fL (79-100) Mean Corpuscular Hemoglobin 32 pg (25-35) Mean Corpuscular Hemoglobin Concent 35 g/dL (31-37) Red Cell Distribution Width 13.1 % (11.5-14.5) Platelet Count 274 x10^3/uL (140-400) Neutrophils (%) (Auto) 80 % (31-73) H Lymphocytes (%) (Auto) 10 % (24-48) L Monocytes (%) (Auto) 10 % (0-9) H Eosinophils (%) (Auto) 1 % (0-3) Basophils (%) (Auto) 0 % (0-3) Neutrophils # (Auto) 10.9 x10^3uL (1.8-7.7) H Lymphocytes # (Auto) 1.3 x10^3/uL (1.0-4.8) Monocytes # (Auto) 1.3 x10^3/uL (0.0-1.1) H Eosinophils # (Auto) 0.1 x10^3/uL (0.0-0.7) Basophils # (Auto) 0.0 x10^3/uL (0.0-0.2) Sodium Level 139 mmol/L (136-145) Potassium Level 2.5 mmol/L (3.5-5.1) *L Chloride Level 97 mmol/L (98-107) L Carbon Dioxide Level 33 mmol/L (21-32) H Anion Gap 9 (6-14) Blood Urea Nitrogen 17 mg/dL (8-26) Creatinine 0.8 mg/dL (0.7-1.3) Estimated GFR (Cockcroft-Gault) 108.8 Glucose Level 114 mg/dL (70-99) H Calcium Level 9.6 mg/dL (8.5-10.1) Total Bilirubin 0.6 mg/dL (0.2-1.0) Direct Bilirubin 0.2 mg/dL (0.0-0.2) Aspartate Amino Transferase (AST) 25 U/L (15-37) Alanine Aminotransferase (ALT) 24 U/L (16-63) Alkaline Phosphatase 114 U/L (46-116) Total Protein 7.8 g/dL (6.4-8.2) Albumin 3.9 g/dL (3.4-5.0) Lipase 96 U/L (73-393) Laboratory Tests 04/24/17 08:15 Laboratory Tests 04/24/17 08:15 Course & Med Decision Making Course & Med Decision Making Pertinent Labs and Imaging studies reviewed. (See chart for details) Laboratory evaluation reveals hypokalemia and metabolic alkalosis, however he is tolerating oral intake and feeling better. No further emesis while in the emergency department. I offered antiemetics for home, but he declined. He is ready to discharge and follow-up with his primary care doctor. Return precautions given. He understands and agrees with plan. Dragon Disclaimer Dragon Disclaimer This electronic medical record was generated, in whole or in part, using a voice recognition dictation system. Departure Departure Impression: Primary Impression: Abdominal pain Additional Impression: Cyclic vomiting syndrome Disposition: 01 HOME, SELF-CARE Condition: STABLE Referrals: UNKNOWN PCP NAME (PCP) Patient Instructions: Nausea and Vomiting, [id number] Additional Instructions: Follow-up with your primary care doctor. Return for any concerns. Scripts No Active Prescriptions or Reported Meds Problem Qualifiers Primary Impression: Abdominal pain Abdominal location: unspecified location Qualified Codes: R10.9 - Unspecified abdominal pain Additional Impression: Cyclic vomiting syndrome Vomiting Intractability: intractable Nausea presence: with nausea Qualified Codes: G43.A1 - Cyclical vomiting, intractable Jose BLACKMON MD Apr 24, 2017 07:04
[2017-04-24] MEDS ORDERED: KETOROLAC TROMETHAMINE 30 MG/ML INJ. IV ONE (07:15)
[2017-04-24] MEDS ORDERED: LIDO:MAALOX:DONNATAL 1:1:1 15 ML SINGLE DOSE SWSW ONE (07:15)
[2017-04-24] MEDS ORDERED: HALOPERIDOL LACTATE 5 MG/ML VIAL. IVP ONE (07:15)
[2017-04-24] MEDS ORDERED: FAMOTIDINE 20 MG/2 ML VIAL IVP ONE (07:15)
[2017-04-24] MEDS ORDERED: METOCLOPRAMIDE HCL 10 MG/2 ML VIAL. IV ONE (07:15)
[2017-04-24 08:23] LABS: BASO % 0 % (0-3); EOS % 1 % (0-3); HEMOGLOBIN 16.6 g/dL (13.0-17.5); LYMPH # 1.3 x10^3/uL (1.0-4.8); LYMPH % 10 % (24-48); MEAN CORPUSCULAR HEMOGLOBIN 32 pg (25-35); MEAN CORPUSCULAR HGB CONC 35 g/dL (31-37); MEAN CORPUSCULAR VOLUME 93 fL (79-100); MONO % 10 % (0-9); NEUT % 80 % (31-73); PLATELET COUNT 274 x10^3/uL (140-400); RED BLOOD COUNT 5.14 x10^6/uL (4.30-5.70); RED CELL DISTRIBUTION WIDTH 13.1 % (11.5-14.5); WHITE BLOOD COUNT 13.6 x10^3/uL (4.0-11.0)
[2017-04-24 08:35] LABS: ALBUMIN 3.9 g/dL (3.4-5.0); CALCIUM 9.6 mg/dL (8.5-10.1); CREATININE 0.8 mg/dL (0.7-1.3); DIRECT BILIRUBIN 0.2 mg/dL (0.0-0.2); GFR 108.8; TOTAL BILIRUBIN 0.6 mg/dL (0.2-1.0); TOTAL PROTEIN 7.8 g/dL (6.4-8.2)
[2017-04-24 08:42] LABS: POTASSIUM 2.5 mmol/L (3.5-5.1)
[2017-04-24] MEDS ORDERED: POTASSIUM CHLORIDE 20 MEQ TABLET.ER. PO ONE (09:00)
--- NOTE | 2017-04-24 09:33 | ACF ---
Admission Forms Criteria HYPONATREMIA; HYPERNATREMIA; HYPOKALEMIA; HYPERKALEMIA; HYPOCALCEMIA; HYPERCALCEMIA Clinical Indications for Inpatient Care (Place 'X' for any and all applicable criteria): Ongoing inpatient care may be indicated for ANY ONE of the following [G](1)(2)(3 )(5): [ ]I. Hyponatremia with ANY ONE of the following: [ ]a) Sodium less than 130 mEq/L (mmol/L) (new) (6)(22) [ ]b) Sodium less than 135 mEq/L (mmol/L) with ANY ONE of the following: [ ]i) Severe medical etiology requiring inpatient management (eg, heart failure, hypovolemia) [ ]ii) Altered mental status [ ]iii) Seizures [ ]II. Hypernatremia with ANY ONE of the following: [ ]a) Sodium greater than 155 mEq/L (mmol/L) [ ]b) Sodium greater than 150 mEq/L (mmol/L) with ANY ONE of the following: [ ] i) Altered mental status [ ]ii) Seizures [ ]iii) Severe medical etiology (eg, hypovolemia, diabetes insipidus) [ ]iv) Severe weakness [ ]v) Severe medical etiology (eg, hemolysis, infection, drug overdose) [ ]III. Hypokalemia with ANY ONE of the following: [ ]a) Potassium less than 2.5 mEq/L (mmol/L) despite outpatient and emergency treatment [ ]b) Potassium less than 3.0 mEq/L (mmol/L) with ANY ONE of the following: [ ]i) Weakness [ ]ii) Cardiac abnormality (eg, arrhythmia, conduction disturbance) [ ]iii) Cardiac ischemia [ ]iv) Ileus [ ]v) Ongoing medical cause requiring inpatient management. ( e.g., acute renal wasting, SIADH) [X]vi) Other severe symptoms [ ] IV. Hyperkalemia with ANY ONE of the following: [ ]a) Potassium greater than 6.5 mEq/L (mmol/L) [ ]b) Potassium greater than 5 mEq/L (mmol/L) with ANY ONE of the following: [ ]i) Severe ECG findings [H] [ ]ii) Acute worsening of renal failure (creatinine greater than 2.5 mg/dL (221 micromoles/L) or significant elevation for age and size) [ ] V. Hypocalcemia with ANY ONE of the following: [ ]a) Calcium less than 7 mg/dL (1.75 mmol/L) despite outpatient and emergency treatment(19) [ ]b) Calcium less than 8 mg/dL (2 mmol/L) with significant symptoms or findings; examples include: [ ]i) Cardiac abnormality (eg, arrhythmia or conduction disturbance) [ ]ii) Altered mental status [ ]iii) Seizures [ ]iv) Breathing difficulty [ ]v) Muscle spasms [ ]. Hypercalcemia with ANY ONE of the following: [ ]a) Calcium greater than 14 mg/dL (3.5 mmol/L) [ ]b) Calcium greater than 12 mg/dL (3 mmol/L) with ANY ONE of the following: [ ]i) Significant dehydration or hypovolemia as indicated by ANY ONE of the following(2): [ ]1. Clinically significant dehydration as indicated by ANY ONE of the following: [ ]A. Acute loss of weight from baseline (5% of body weight in adults, 9% in pediatric patients) [ ]B. Hemodynamic instability [ ]C. Acute renal failure [ ]D. Serum sodium greater than 150 mEq/L (mmol/L) [ ]2) Dehydration that is persistent indicated by ALL of the following: [ ]A. Oral rehydration therapy not tolerated or insufficient to adequately correct dehydration [ ]B. Appropriate intravenous treatment (eg, fluids ) does not readily correct dehydration ie, after 12 to 24 hours of treatment) [ ]ii) Significant symptoms or findings; examples include: [ ]1) Altered mental status [ ]2) Cardiac abnormality (eg, arrhythmia, conduction disturbance) [ ]3) Cardiac abnormality (eg, arrhythmia, conduction disturbance) The original [employer] content created by [employer] has been revised. The portions of the content which have been revised are identified through the use of italic text or in bold, and [facility] has neither reviewed nor approved the modified material. All other unmodified content is copyright [facility] [employer] [employer] Please see references footnoted in the original [employer] edition 2016 JENN FLOREZ Apr 24, 2017 09:33
[2017-04-24 09:43] VITALS: BP 100/57
== END 2017-04-24 10:09 | disposition home or self-care (01) ==
LOC: ER 06:36
DX: G43.A0 Cyclical vomiting, in migraine, not intractable (principal); R10.9 Unspecified abdominal pain; Z76.5 Malingerer [conscious simulation]; F12.10 Cannabis abuse, uncomplicated; Z90.49 Acquired absence of other specified parts of digestive tract; Z87.19 Personal history of other diseases of the digestive system; Z88.6 Allergy status to analgesic agent; Z88.5 Allergy status to narcotic agent; Z91.018 Allergy to other foods
CPT/HCPCS: 36415; 80048; 80076; 83690; 85027; 96361; 96374; 96375; 99285; J1885; J2765; J7030; S0028; J1630

== ENCOUNTER 2017-04-25 10:12 | Inpatient (IN) | payer MEDICAID, OTHER ==
[~2017-04-25] VITALS: Ht 190.5 cm; Wt 63.8 kg
[2017-04-25] MEDS ORDERED: chlorproMAZINE IM 25 MG/ML AMPUL IM ONE (11:00)
[2017-04-25] MEDS ORDERED: KETAMINE HCL 500 MG/10 ML VIAL. IV ONE (11:45)
[2017-04-25] MEDS ORDERED: ONDANSETRON PF 4 MG/2 ML VIAL. IV ONE (11:45)
--- NOTE | 2017-04-25 11:54 | PHYS DOC ---
Past Medical History Past Medical History: Cyclic Vomiting, Pneumonia, Other Additional Past Medical Histor: MUSCULAR DYSTROPHY, neurofibromatosis, gastroparesis, drug seeking behavior Past Surgical History: Cholecystectomy Alcohol Use: Rarely Drug Use: Marijuana Adult General Chief Complaint Chief Complaint: ABDOMINAL PAIN, n/v HPI HPI Patient is a 37 year old male who presents with abdominal pain, nausea and vomiting. Patient is well-known to our ER, frequently presents with similar symptoms. History of gastroparesis, cyclic vomiting, marijuana use and neurofibromatosis. Patient reportedly follows with GI doctors at . He was seen yesterday, treated for similar symptoms but felt good enough to go home. He states he quickly worsen when he got home, not controlled with home antiemetics. Does not actively follow with primary care physician. Pain is diffuse in his abdomen, no reported change in bowel movements or urination. No fevers. Review of Systems Review of Systems Constitutional: Denies fever or chills [] Eyes: Denies change in visual acuity, redness, or eye pain [] HENT: Denies nasal congestion or sore throat [] Respiratory: Denies cough or shortness of breath [] Cardiovascular: Denies chest pain GI: Per history of present illness : Denies dysuria or hematuria [] Musculoskeletal: Denies back pain or joint pain [] Integument: Denies rash or skin lesions [] Neurologic: Denies headache, focal weakness or sensory changes [] Current Medications Current Medications Current Medications Medications (Trade) Dose Ordered Sig/Noah Start Time Stop Time Status Last Admin Dose Admin Chlorpromazine HCl 25 mg/Sodium Chloride 51 ml @ 100 mls/hr 1X ONCE 04/25/17 12:45 04/25/17 13:15 DC 04/25/17 12:39 100 MLS/HR Chlorpromazine HCl (Thorazine Im) 12.5 mg 1X ONCE 04/25/17 11:00 04/25/17 11:01 DC 04/25/17 10:53 12.5 MG Ketamine HCl 15 mg 1X ONCE 04/25/17 11:45 04/25/17 11:46 DC 04/25/17 11:50 15 MG Ondansetron HCl (Zofran) 4 mg 1X ONCE 04/25/17 11:45 04/25/17 11:46 DC 04/25/17 11:49 4 MG Potassium Chloride (Klor-Con) 40 meq 1X ONCE 04/25/17 13:00 04/25/17 13:01 DC Sodium Chloride 500 ml @ 500 mls/hr 1X ONCE 04/25/17 12:15 04/25/17 13:14 DC 04/25/17 12:00 500 MLS/HR Allergies Allergies Allergies Coded Allergies Type Severity Reaction Last Updated Verified acetaminophen Allergy Intermediate vomiting, and hives 03/20/17 Yes walnut Allergy Unknown Rash 03/21/17 Yes morphine Adverse Reaction Severe "makes me crazy" Tolerates Dilaudid, Oxycodone 12/09/16 Yes Physical Exam Physical Exam Constitutional: Well developed, well nourished, ill appearing HENT: Normocephalic, atraumatic, bilateral external ears normal, oropharynx dry , no oral exudates, nose normal. [] Eyes: PERRLA, EOMI, conjunctiva normal, no discharge. [] Neck: Normal range of motion, no tenderness, supple, no stridor. [] Cardiovascular:Heart rate regular with regular rhythm, no murmur [] Lungs & Thorax: Bilateral breath sounds clear to auscultation, no wheeze or crackles Abdomen: Abdomen is nondistended, soft, generalized tenderness to palpation without focal findings, no peritoneal signs, no guarding Skin: Warm, dry, no erythema, no rash. [] Extremities: No tenderness, no cyanosis, no clubbing, ROM intact, no edema. [] Current Patient Data Vital Signs Vital Signs Date Time Temp Pulse Resp B/P (MAP) Pulse Ox O2 Delivery O2 Flow Rate FiO2 04/25/17 11:56 109 20 140/86 (104) 96 04/25/17 10:20 97.9 Room Air 97.9 Lab Values Laboratory Tests Test 04/25/17 12:30 White Blood Count 10.8 x10^3/uL (4.0-11.0) Red Blood Count 5.11 x10^6/uL (4.30-5.70) Hemoglobin 16.5 g/dL (13.0-17.5) Hematocrit 48.6 % (39.0-53.0) Mean Corpuscular Volume 95 fL (79-100) Mean Corpuscular Hemoglobin 32 pg (25-35) Mean Corpuscular Hemoglobin Concent 34 g/dL (31-37) Red Cell Distribution Width 13.3 % (11.5-14.5) Platelet Count 221 x10^3/uL (140-400) Neutrophils (%) (Auto) 77 % (31-73) H Lymphocytes (%) (Auto) 13 % (24-48) L Monocytes (%) (Auto) 9 % (0-9) Eosinophils (%) (Auto) 1 % (0-3) Basophils (%) (Auto) 1 % (0-3) Neutrophils # (Auto) 8.3 x10^3uL (1.8-7.7) H Lymphocytes # (Auto) 1.4 x10^3/uL (1.0-4.8) Monocytes # (Auto) 0.9 x10^3/uL (0.0-1.1) Eosinophils # (Auto) 0.1 x10^3/uL (0.0-0.7) Basophils # (Auto) 0.1 x10^3/uL (0.0-0.2) Lipase 111 U/L (73-393) Laboratory Tests 04/25/17 12:30 EKG EKG [] Radiology/Procedures Radiology/Procedures [] Course & Med Decision Making Course & Med Decision Making Pertinent Labs and Imaging studies reviewed. (See chart for details) I reviewed patient's medical record, very similar to previous visits. Patient was given IM Thorazine without relief of symptoms. IV established, blood work drawn. Patient has worsening hypokalemia. Patient was given Iv ketamine 15 mg, additional 25 mg IV Thorazine normal saline. Patient cannot tolerate by mouth potassium, potassium is 2.5. Therefore we will admit for ongoing hydration, potassium replacement and monitoring. Dr. Weathers accepted pt to inpt med/surg. Dragon Disclaimer Dragon Disclaimer This electronic medical record was generated, in whole or in part, using a voice recognition dictation system. Departure Departure Impression: Primary Impression: Abdominal pain Disposition: ADMITTED INPATIENT Admitting Physician: Cirilo Luther Condition: STABLE Referrals: UNKNOWN PCP NAME (PCP) Scripts No Active Prescriptions or Reported Meds AMERICO MACKAY MD Apr 25, 2017 11:54
[2017-04-25] MEDS ORDERED: IV NORMAL SALINE 1000ML BAG 500 ML IV ONE (12:15)
[2017-04-25] MEDS: POTASSIUM CHLORIDE 20 MEQ TABLET.ER. PO ONE ×2 (13:00→13:04)
[2017-04-25 13:11] LABS: BASO # 0.1 x10^3/uL (0.0-0.2); BASO % 1 % (0-3); EOS % 1 % (0-3); HEMATOCRIT 48.6 % (39.0-53.0); HEMOGLOBIN 16.5 g/dL (13.0-17.5); LYMPH # 1.4 x10^3/uL (1.0-4.8); LYMPH % 13 % (24-48); MEAN CORPUSCULAR HEMOGLOBIN 32 pg (25-35); MEAN CORPUSCULAR HGB CONC 34 g/dL (31-37); MEAN CORPUSCULAR VOLUME 95 fL (79-100); MONO % 9 % (0-9); NEUT % 77 % (31-73); PLATELET COUNT 221 x10^3/uL (140-400); RED BLOOD COUNT 5.11 x10^6/uL (4.30-5.70); RED CELL DISTRIBUTION WIDTH 13.3 % (11.5-14.5); WHITE BLOOD COUNT 10.8 x10^3/uL (4.0-11.0)
[2017-04-25] MEDS ORDERED: POTASSIUM CL 40MEQ IN 0.9%NACL 1,000 ML IV ONE (13:15)
--- NOTE | 2017-04-25 13:40 | ACF ---
Admit Criteria Forms Admit Criteria Forms Admit Criteria Forms VOMITING Clinical Indications for Admission to Inpatient Care ( Place 'X' for any and all applicable criteria): Admission is indicated for 1 or more of the following(1)(2)(3): [ ]I. Complete or partial gastrointestinal obstruction [ ]II. Vomiting due to significant metabolic derangement (eg, severe hypercalcemia, diabetic ketoacidosis) [ ]III. Other cause of vomiting requiring hospitalization (eg, poisoning, increased intracranial pressure) [X]IV. Inpatient admission required rather than observation care because of 1 or more of the following [ ]i) Hemodynamic instability [X]ii) Vomiting that is severe or persistent indicated by 1 or more of the following 1) Numerous episodes of vomiting in past 24hours (eg, every 1 to 2 hours) 2) Suggests severe underlying cause or complication (eg , projectile, feculent, bilious, coffee ground, bloody) 3) Appropriate antiemetic treatment (eg, repeated oral or parenteral dosing) does not sufficiently reduce vomiting within 12 to 24 hours of treatment 4) Treatment regimen necessary to adequately control vomiting requires inpatient level of care (eg, not immediately available in outpatient setting) [X]iii) Severe electrolyte abnormalities requiring inpatient care [ ]iv) Severe pain requiring acute inpatient management( Continuous or frequent (eg, every 2 to 4 hours) parental analgesics or analgesic regimen that can only be performed or initiated in inpatient setting) [ ]v) High fever or infection requiring inpatient admission as indicated by 1 or more of the following(7)(8): [ ]1) Appropriate outpatient or observation care antimicrobial treatment unavailable, not effective, or not feasible [ ]2) Documented bacteremia [ ]3) Temp >104.9 degrees F (40.5 degrees C) (oral) [ ]4) Temp >103.1 degrees F (39.5 C) (oral) or <96.8 degrees F (36 C) (rectal) that does not respond to all emergency treatment measures [ ]vi) Acute renal failure [ ]vii) IV fluid required rather than oral rehydration to replace significant on going losses (greater than 3 L/m2 per day) [ ]viii) Parenteral nutrition regimen that must be implemented on inpatient basis [ ]ix) Other condition, treatment or monitoring requiring inpatient admission Extended stay beyond goal length of stay may be needed for(1)(4): [ ]a) Severe vomiting [ ]b) Persistent vomiting, vital sign changes, severe electrolyte imbalance , or diagnosed cause of vomiting that requires continued hospitalization (eg, gastrointestinal obstruction , increased intracranial pressure) [ ]c) Surgery to treat identified causes of vomiting (eg, bowel obstruction , intracranial process) [ ]d) Comorbid illness that requires inpatient care (eg, acute heart failure , renal failure) [ ]e) Need for inpatient endoscopy The original [employer] content created by [employer] has been revised. The portions of the content which have been revised are identified through the use of italic text or in bold, and [employer] has neither reviewed nor approved the modified material. All other unmodified content is copyright [employer]. Please see references footnoted in the original [employer] edition 2016 PAMELA REYES Apr 25, 2017 13:40
[2017-04-25] MEDS ORDERED: KETOROLAC TROMETHAMINE 30 MG/ML INJ. IV ONE (14:30)
[2017-04-25 14:46] VITALS: BP 117/72
[2017-04-25] MEDS ORDERED: hydrALAZINE 20 MG/ML VIAL. IVP PRN (15:15)
[2017-04-25] MEDS ORDERED: ALBUTEROL SULFATE 2.5 MG/3 ML NEBU. NEB PRN (15:15)
[2017-04-25] MEDS: HYDROmorphone 2 MG/ML VIAL IV PRN ×4 (15:27→22:00)
[2017-04-25] MEDS: ONDANSETRON PF 4 MG/2 ML VIAL. IV PRN (17:22)
[2017-04-25 19:00] VITALS: BP 123/70
[2017-04-25] MEDS: IV NORMAL SALINE 1000ML BAG 1,000 ML IV SCH (20:05)
[2017-04-25 23:00] VITALS: BP 112/58
[2017-04-26] MEDS: HYDROmorphone 2 MG/ML VIAL IV PRN ×8 (00:01→16:00)
--- NOTE | 2017-04-26 00:04 | PDOC1 ---
History and Physical Past Medical History CENTRAL NERVOUS SYSTEM: Other GI: Other Psych: Anxiety, Depression Past Surgical History Past Surgical History: Cholecystectomy Family History Family History: No Significant, Other Social History ALCOHOL: none Drugs: Marijuana Current Problem List Problem List Problems Medical Problems: (1) Abdominal pain Status: Acute Current Medications Current Medications Current Medications Medications (Trade) Dose Ordered Sig/Noah Start Time Stop Time Status Last Admin Dose Admin Albuterol Sulfate (Ventolin Neb Soln) 2.5 mg PRN Q4HRS PRN 04/25/17 15:15 Chlorpromazine HCl 25 mg/Sodium Chloride 51 ml @ 100 mls/hr 1X ONCE 04/25/17 12:45 04/25/17 13:15 DC 04/25/17 12:39 100 MLS/HR Chlorpromazine HCl (Thorazine Im) 12.5 mg 1X ONCE 04/25/17 11:00 04/25/17 11:01 DC 04/25/17 10:53 12.5 MG Hydralazine HCl (Apresoline) 10 mg PRN Q4HRS PRN 04/25/17 15:15 Hydromorphone HCl (Dilaudid) 0.5 mg PRN Q2HR PRN 04/25/17 15:15 04/26/17 00:01 0.5 MG Ketamine HCl 15 mg 1X ONCE 04/25/17 11:45 04/25/17 11:46 DC 04/25/17 11:50 15 MG Ketorolac Tromethamine (Toradol) 30 mg 1X ONCE 04/25/17 14:30 04/25/17 14:31 DC Ondansetron HCl (Zofran) 4 mg PRN Q8HRS PRN 04/25/17 15:15 04/25/17 17:22 4 MG Potassium Chloride/Sodium Chloride 1,000 ml @ 250 mls/hr 1X ONCE 04/25/17 13:15 04/25/17 17:14 DC 04/25/17 13:16 250 MLS/HR Potassium Chloride (Klor-Con) 40 meq 1X ONCE 04/25/17 13:00 04/25/17 13:01 DC Sodium Chloride 1,000 ml @ 75 mls/hr [id number] 04/25/17 15:15 04/25/17 20:05 75 MLS/HR Allergies Allergies Allergies Coded Allergies Type Severity Reaction Last Updated Verified acetaminophen Allergy Intermediate vomiting, and hives 03/20/17 Yes walnut Allergy Unknown Rash 03/21/17 Yes morphine Adverse Reaction Severe "makes me crazy" Tolerates Dilaudid, Oxycodone 12/09/16 Yes ROS Review of System CONSTITUTIONAL: No fever or chills EYES: No recent changes SKIN: No rash or itching CARDIOVASCULAR: No chest pain, syncope, palpitations, or edema RESPIRATORY: No SOB or cough GASTROINTESTINAL: nausea, vomiting, abdominal pain NEUROLOGICAL: No headaches or weakness ENDOCRINE: No cold or heat intolerance GENITOURINARY: No urgency or frequency of urination MUSCULOSKELETAL: No back pain or joint pain LYMPHATICS: No enlarged lymph nodes PSYCHIATRIC: No anxiety or depression Physical Exam Physical Exam GEN.: apparent distress. Alert and oriented. HEENT: Head is normocephalic, atraumatic NECK: Supple. LUNGS: Clear to auscultation. HEART: RRR, S1, S2 present. Peripheral pulses intact ABDOMEN: Soft, nontender. Positive bowel sounds. EXTREMITIES: Without any cyanosis. NEUROLOGIC: Normal speech, normal tone PSYCHIATRIC: Normal affect, normal mood. SKIN: No ulcerations Vitals Vitals Vital Signs Date Time Temp Pulse Resp B/P (MAP) Pulse Ox O2 Delivery O2 Flow Rate FiO2 04/26/17 00:01 97 Room Air 04/25/17 23:00 97.3 90 16 112/58 (76) 97.3 Labs Labs Laboratory Tests Test 04/25/17 12:30 White Blood Count 10.8 x10^3/uL (4.0-11.0) Red Blood Count 5.11 x10^6/uL (4.30-5.70) Hemoglobin 16.5 g/dL (13.0-17.5) Hematocrit 48.6 % (39.0-53.0) Mean Corpuscular Volume 95 fL (79-100) Mean Corpuscular Hemoglobin 32 pg (25-35) Mean Corpuscular Hemoglobin Concent 34 g/dL (31-37) Red Cell Distribution Width 13.3 % (11.5-14.5) Platelet Count 221 x10^3/uL (140-400) Neutrophils (%) (Auto) 77 % (31-73) Lymphocytes (%) (Auto) 13 % (24-48) Monocytes (%) (Auto) 9 % (0-9) Eosinophils (%) (Auto) 1 % (0-3) Basophils (%) (Auto) 1 % (0-3) Neutrophils # (Auto) 8.3 x10^3uL (1.8-7.7) Lymphocytes # (Auto) 1.4 x10^3/uL (1.0-4.8) Monocytes # (Auto) 0.9 x10^3/uL (0.0-1.1) Eosinophils # (Auto) 0.1 x10^3/uL (0.0-0.7) Basophils # (Auto) 0.1 x10^3/uL (0.0-0.2) Lipase 111 U/L (73-393) Laboratory Tests Test 04/25/17 12:30 White Blood Count 10.8 x10^3/uL (4.0-11.0) Red Blood Count 5.11 x10^6/uL (4.30-5.70) Hemoglobin 16.5 g/dL (13.0-17.5) Hematocrit 48.6 % (39.0-53.0) Mean Corpuscular Volume 95 fL (79-100) Mean Corpuscular Hemoglobin 32 pg (25-35) Mean Corpuscular Hemoglobin Concent 34 g/dL (31-37) Red Cell Distribution Width 13.3 % (11.5-14.5) Platelet Count 221 x10^3/uL (140-400) Neutrophils (%) (Auto) 77 % (31-73) Lymphocytes (%) (Auto) 13 % (24-48) Monocytes (%) (Auto) 9 % (0-9) Eosinophils (%) (Auto) 1 % (0-3) Basophils (%) (Auto) 1 % (0-3) Neutrophils # (Auto) 8.3 x10^3uL (1.8-7.7) Lymphocytes # (Auto) 1.4 x10^3/uL (1.0-4.8) Monocytes # (Auto) 0.9 x10^3/uL (0.0-1.1) Eosinophils # (Auto) 0.1 x10^3/uL (0.0-0.7) Basophils # (Auto) 0.1 x10^3/uL (0.0-0.2) Lipase 111 U/L (73-393) VTE Prophylaxis Ordered VTE Prophylaxis Devices: No VTE Pharmacological Prophylaxi: Yes JORJE MILES MD Apr 26, 2017 00:04
[2017-04-26 03:00] VITALS: BP 116/75
[2017-04-26 05:08] LABS: BASO % 1 % (0-3); EOS % 3 % (0-3); HEMATOCRIT 42.9 % (39.0-53.0); HEMOGLOBIN 14.2 g/dL (13.0-17.5); LYMPH # 2.6 x10^3/uL (1.0-4.8); LYMPH % 31 % (24-48); MEAN CORPUSCULAR HEMOGLOBIN 32 pg (25-35); MEAN CORPUSCULAR HGB CONC 33 g/dL (31-37); MEAN CORPUSCULAR VOLUME 95 fL (79-100); MONO % 7 % (0-9); NEUT % 58 % (31-73); PLATELET COUNT 214 x10^3/uL (140-400); RED CELL DISTRIBUTION WIDTH 13.2 % (11.5-14.5); WHITE BLOOD COUNT 8.4 x10^3/uL (4.0-11.0)
[2017-04-26 05:33] LABS: CALCIUM 8.4 mg/dL (8.5-10.1); CREATININE 0.7 mg/dL (0.7-1.3); GFR 126.9; POTASSIUM 3.3 mmol/L (3.5-5.1)
[2017-04-26] MEDS: ONDANSETRON PF 4 MG/2 ML VIAL. IV PRN ×2 (06:04→13:57)
[2017-04-26 07:00] VITALS: BP 119/77
[2017-04-26] MEDS: IV NORMAL SALINE 1000ML BAG 1,000 ML IV SCH (10:02)
[2017-04-26 11:00] VITALS: BP 123/79
[2017-04-26 15:00] VITALS: BP 135/85
--- NOTE | 2017-04-26 16:06 | PDOC ---
PROGRESS NOTES Chief Complaint Chief Complaint Cyclic vomiting syndrome Hypokalemia ASSESSMENT AND PLAN: 1. CVS: recurrent episodes since childhood. clinically improved. tolerating clears. advance diet. stop zofran; start reglan (prokinetic) PRN 2. Hypokalemia: replete PO, monitor 3. Tobacco dependence: nicotine patch 4. Prophylaxis: H2B 5. Dispo: prob home in AM Vitals Vitals Vital Signs Date Time Temp Pulse Resp B/P (MAP) Pulse Ox O2 Delivery O2 Flow Rate FiO2 04/26/17 16:00 18 Room Air 04/26/17 15:00 97.6 65 135/85 (102) 97 97.6 Physical Exam General: Alert, Oriented X3, Cooperative, No acute distress Heart: Regular rate Lungs: Clear Abdomen: Normal bowel sounds, Soft, Other (TTP along costal margin) Extremities: No edema Skin: No rashes Labs LABS Laboratory Tests Test 04/26/17 04:25 White Blood Count 8.4 x10^3/uL (4.0-11.0) Red Blood Count 4.50 x10^6/uL (4.30-5.70) Hemoglobin 14.2 g/dL (13.0-17.5) Hematocrit 42.9 % (39.0-53.0) Mean Corpuscular Volume 95 fL (79-100) Mean Corpuscular Hemoglobin 32 pg (25-35) Mean Corpuscular Hemoglobin Concent 33 g/dL (31-37) Red Cell Distribution Width 13.2 % (11.5-14.5) Platelet Count 214 x10^3/uL (140-400) Neutrophils (%) (Auto) 58 % (31-73) Lymphocytes (%) (Auto) 31 % (24-48) Monocytes (%) (Auto) 7 % (0-9) Eosinophils (%) (Auto) 3 % (0-3) Basophils (%) (Auto) 1 % (0-3) Neutrophils # (Auto) 4.9 x10^3uL (1.8-7.7) Lymphocytes # (Auto) 2.6 x10^3/uL (1.0-4.8) Monocytes # (Auto) 0.6 x10^3/uL (0.0-1.1) Eosinophils # (Auto) 0.3 x10^3/uL (0.0-0.7) Basophils # (Auto) 0.0 x10^3/uL (0.0-0.2) Sodium Level 140 mmol/L (136-145) Potassium Level 3.3 mmol/L (3.5-5.1) Chloride Level 104 mmol/L (98-107) Carbon Dioxide Level 30 mmol/L (21-32) Anion Gap 6 (6-14) Blood Urea Nitrogen 15 mg/dL (8-26) Creatinine 0.7 mg/dL (0.7-1.3) Estimated GFR (Cockcroft-Gault) 126.9 Glucose Level 92 mg/dL (70-99) Calcium Level 8.4 mg/dL (8.5-10.1) TERRI GIANG MD Apr 26, 2017 16:06
[2017-04-26] MEDS ORDERED: METOCLOPRAMIDE HCL 10 MG/2 ML VIAL. IV PRN (17:30)
[2017-04-26] MEDS ORDERED: HYDROcodone/APAP 5/325MG 1 TAB TABLET PO PRN (18:00)
[2017-04-26] MEDS: NICOTINE 21MG PATCH. TD PRN (18:04)
[2017-04-26] MEDS: POTASSIUM CHLORIDE 20 MEQ TABLET.ER. PO SCH (18:04)
--- NOTE | 2017-04-26 18:09 | HP ---
ADMIT DATE: 04/25/2017 DATE OF EXAMINATION: 11/2016, 6:00 p.m. CHIEF COMPLAINT: Nausea, vomiting, abdominal pain. HISTORY OF PRESENT ILLNESS: A 37-year-old male patient with history of cyclical vomiting syndrome presented to the ER with complaints of intractable abdominal pain and nausea. The patient has been feeling well till 2 days ago, all of a sudden his symptoms started while he was coming from his work. He was sweating profusely and nausea and vomiting. The patient states he has some stress in his life. He denies any substance abuse. He says he was better while he was off of all his pain medications and nausea medications. He denies any fever, chills, or sick contacts. He states his abdominal pain is intractable in nature, not able to keep up anything even water. PAST MEDICAL HISTORY: Neurofibromatosis, gastroparesis, GERD, MRSA. PAST SURGICAL HISTORY: Cholecystectomy. FAMILY HISTORY: No GI cancer. SOCIAL HISTORY: No smoking, no alcohol, occasionally takes marijuana. REVIEW OF SYSTEMS: Please see my electronic H and P. PHYSICAL EXAMINATION: Please see my electronic H and P. LABORATORY FINDINGS: CBC within normal limits. Chemistry: The patient had mild hypokalemia as per ER physician. I could not able to obtain reports in the computer. IMAGING DATA: Acute abdominal series from 03/19/2017, no acute findings noted. ASSESSMENT AND PLAN: 1. Intractable nausea and vomiting and abdominal pain. 2. Hypokalemia. 3. Dehydration. PLAN: 1. The patient has been placed in the hospital and continue IV hydration 75 mL per hour. 2. Symptomatic treatment of nausea with Zofran. 3. Pain controlled with Dilaudid 0.5 mg q. 2 hours and monitor CBC and BMP in a.m. Monitor electrolyte closely. 4. Anticipatory discharge based on the patient's symptomatic relief. 5. Consider GI consult for intractable symptoms. 6. Prognosis is guarded. JORJE MILES MD DR: NATTY/katerine JOB#: [id number] / [id number] SILVANO
[2017-04-26] MEDS: oxyCODONE IR 5 MG TABLET PO PRN (18:10)
[2017-04-26 19:00] VITALS: BP 120/80
[2017-04-26] MEDS: FAMOTIDINE 20 MG TABLET. PO SCH (20:54)
[2017-04-26] MEDS ORDERED: HYDROmorphone 2 MG/ML VIAL IV ONE (21:30)
[2017-04-26 23:21] VITALS: BP 133/85
[2017-04-27] MEDS: oxyCODONE IR 5 MG TABLET PO PRN ×2 (01:22→09:04)
[2017-04-27 07:00] VITALS: BP 109/68
[2017-04-27] MEDS: POTASSIUM CHLORIDE 20 MEQ TABLET.ER. PO SCH (09:04)
[2017-04-27] MEDS: FAMOTIDINE 20 MG TABLET. PO SCH (09:04)
[2017-04-27] MEDS: NICOTINE 21MG PATCH. TD PRN (09:04)
[2017-04-27 09:17] LABS: ALBUMIN/GLOBULIN RATIO 1.2 (1.0-1.7); CALCIUM 8.5 mg/dL (8.5-10.1); CREATININE 0.6 mg/dL (0.7-1.3); GFR 151.6; POTASSIUM 3.8 mmol/L (3.5-5.1); TOTAL PROTEIN 5.6 g/dL (6.4-8.2)
[2017-04-27 09:34] LABS: BASO % 1 % (0-3); EOS % 4 % (0-3); HEMATOCRIT 42.1 % (39.0-53.0); HEMOGLOBIN 14.3 g/dL (13.0-17.5); LYMPH # 1.4 x10^3/uL (1.0-4.8); LYMPH % 27 % (24-48); MEAN CORPUSCULAR HEMOGLOBIN 32 pg (25-35); MEAN CORPUSCULAR HGB CONC 34 g/dL (31-37); MEAN CORPUSCULAR VOLUME 94 fL (79-100); MONO % 9 % (0-9); NEUT % 59 % (31-73); PLATELET COUNT 214 x10^3/uL (140-400); RED BLOOD COUNT 4.48 x10^6/uL (4.30-5.70); RED CELL DISTRIBUTION WIDTH 13.2 % (11.5-14.5); WHITE BLOOD COUNT 5.3 x10^3/uL (4.0-11.0)
[2017-04-27 11:00] VITALS: BP 127/81
[2017-05-02 15:06] LABS: POTASSIUM ISTAT 2.5 mmol/L (3.5-5.0)
== END 2017-04-27 15:00 | disposition home or self-care (01) | DRG 103 ==
LOC: ER 10:12 → 5 NORTH 13:04
PROVIDERS: ADMIT Internal Medicine; ATTEND Internal Medicine
DX: G43.A0 Cyclical vomiting, in migraine, not intractable (principal); G71.0 Muscular dystrophy; K21.9 Gastro-esophageal reflux disease without esophagitis; K31.84 Gastroparesis; E87.6 Hypokalemia; F12.90 Cannabis use, unspecified, uncomplicated; F41.9 Anxiety disorder, unspecified; F32.9 Major depressive disorder, single episode, unspecified; F17.200 Nicotine dependence, unspecified, uncomplicated; Z90.49 Acquired absence of other specified parts of digestive tract; Z87.01 Personal history of pneumonia (recurrent); Z88.6 Allergy status to analgesic agent; Z88.5 Allergy status to narcotic agent; Z91.018 Allergy to other foods; Z86.14 Personal history of Methicillin resistant Staphylococcus aureus infection; Q85.00 Neurofibromatosis, unspecified; Z76.5 Malingerer [conscious simulation]; Z79.899 Other long term (current) drug therapy
CPT/HCPCS: 36415; 80047; 80048; 80053; 83690; 85027; 94250; 96361; 96365; 96372; 96375; J1170; J2405; J3230; J3480; J3490; J7030; 99285-25

== ENCOUNTER 2017-04-29 12:59 | Inpatient (IN) | payer OTHER ==
[~2017-04-29] VITALS: Ht 190.5 cm; Wt 63.5 kg
--- NOTE | 2017-04-29 13:07 | PHYS DOC ---
Past Medical History Past Medical History: Cyclic Vomiting, Pneumonia, Other Additional Past Medical Histor: MUSCULAR DYSTROPHY, neurofibromatosis, gastroparesis, drug seeking behavior Past Surgical History: Cholecystectomy Alcohol Use: Rarely Drug Use: Marijuana Adult General Chief Complaint Chief Complaint: ABDOMINAL PAIN [facility] HPI Patient is a 37 year old male presenting to the emergency department for evaluation of intractable nausea vomiting and abdominal pain. Patient was just admitted to the hospital several days ago and released 2 days ago. He says that he was let go to soon and he has continued to have pain and nausea. He says that his symptoms are due to cyclic vomiting syndrome which she is followed by a GI physician at [facility]. I told him that every time he has had a drug test checked it always comes back positive for marijuana. He says there is no way that marijuana is contribute to his nausea and vomiting as he had nausea and vomiting since he was 8 years old. He says the only medications that work for his cyclic vomiting is Ativan and Dilaudid. He is not even requesting any antiemetics. I told patient that I do not treat vomiting with opioids and benzodiazepines but I will provide him Haldol and Zofran. Patient is upset and says he does not know why the emergency department treat supportively but when he gets admitted to the hospital he gets what he needs. Review of Systems Review of Systems Constitutional: Denies fever or chills [] Eyes: Denies change in visual acuity, redness, or eye pain [] HENT: Denies nasal congestion or sore throat [] Respiratory: Denies cough or shortness of breath [] Cardiovascular: No additional information not addressed in HPI [] GI: + abdominal pain, nausea, vomiting. No bloody stools or diarrhea [] : Denies dysuria or hematuria [] Musculoskeletal: Denies back pain or joint pain [] Integument: Denies rash or skin lesions [] Neurologic: Denies headache, focal weakness or sensory changes [] Current Medications Current Medications Current Medications Medications (Trade) Dose Ordered Sig/Noah Start Time Stop Time Status Last Admin Dose Admin Dextrose/Sodium Chloride 1,000 ml @ 100 mls/hr 1X ONCE 04/29/17 14:45 04/30/17 00:44 Haloperidol Lactate (Haldol) 2.5 mg 1X ONCE 04/29/17 13:30 04/29/17 13:31 DC Ondansetron HCl (Zofran) 4 mg PRN Q8HRS PRN 04/29/17 14:45 04/30/17 14:44 Sodium Chloride 1,000 ml @ 1,000 mls/hr 1X ONCE 04/29/17 14:15 04/29/17 15:14 04/29/17 14:14 1,000 MLS/HR Allergies Allergies Allergies Coded Allergies Type Severity Reaction Last Updated Verified acetaminophen Allergy Intermediate vomiting, and hives 04/29/17 Yes walnut Allergy Intermediate Rash 04/29/17 Yes morphine Adverse Reaction Severe "makes me crazy" Tolerates Dilaudid, Oxycodone 04/29/17 Yes Physical Exam Physical Exam Constitutional: Well developed, well nourished, no acute distress, non-toxic appearance. [] HENT: Normocephalic, atraumatic, bilateral external ears normal, oropharynx moist, no oral exudates, nose normal. [] Eyes: PERRLA, EOMI, conjunctiva normal, no discharge. [] Neck: Normal range of motion, no tenderness, supple, no stridor. [] Cardiovascular:Heart rate regular rhythm, no murmur [] Lungs & Thorax: Bilateral breath sounds clear to auscultation [] Abdomen: Bowel sounds normal, soft, no tenderness, no masses, no pulsatile masses. [] Skin: Warm, dry, no erythema, no rash. [] Back: No tenderness, no CVA tenderness. [] Extremities: No tenderness, no cyanosis, no clubbing, ROM intact, no edema. [] Neurologic: Alert and oriented X 3, normal motor function, normal sensory function, no focal deficits noted. [] Current Patient Data Vital Signs Vital Signs Date Time Temp Pulse Resp B/P (MAP) Pulse Ox O2 Delivery O2 Flow Rate FiO2 04/29/17 13:29 98.4 78 18 135/82 (99) 98 Room Air 98.4 Lab Values Laboratory Tests Test 04/29/17 13:55 White Blood Count 8.2 x10^3/uL (4.0-11.0) # Red Blood Count 4.72 x10^6/uL (4.30-5.70) Hemoglobin 15.1 g/dL (13.0-17.5) Hematocrit 45.7 % (39.0-53.0) Mean Corpuscular Volume 97 fL (79-100) Mean Corpuscular Hemoglobin 32 pg (25-35) Mean Corpuscular Hemoglobin Concent 33 g/dL (31-37) Red Cell Distribution Width 13.5 % (11.5-14.5) Platelet Count 253 x10^3/uL (140-400) Neutrophils (%) (Auto) 72 % (31-73) Lymphocytes (%) (Auto) 19 % (24-48) L Monocytes (%) (Auto) 6 % (0-9) Eosinophils (%) (Auto) 2 % (0-3) Basophils (%) (Auto) 1 % (0-3) Neutrophils # (Auto) 5.9 x10^3uL (1.8-7.7) Lymphocytes # (Auto) 1.6 x10^3/uL (1.0-4.8) Monocytes # (Auto) 0.5 x10^3/uL (0.0-1.1) Eosinophils # (Auto) 0.1 x10^3/uL (0.0-0.7) Basophils # (Auto) 0.1 x10^3/uL (0.0-0.2) Sodium Level 143 mmol/L (136-145) Potassium Level 4.6 mmol/L (3.5-5.1) Chloride Level 107 mmol/L (98-107) Carbon Dioxide Level 28 mmol/L (21-32) Anion Gap 8 (6-14) Blood Urea Nitrogen 11 mg/dL (8-26) Creatinine 0.7 mg/dL (0.7-1.3) Estimated GFR (Cockcroft-Gault) 126.9 BUN/Creatinine Ratio 16 (6-20) Glucose Level 98 mg/dL (70-99) Calcium Level 9.1 mg/dL (8.5-10.1) Magnesium Level 2.0 mg/dL (1.8-2.4) Total Bilirubin 0.1 mg/dL (0.2-1.0) L Aspartate Amino Transferase (AST) 24 U/L (15-37) Alanine Aminotransferase (ALT) 101 U/L (16-63) H Alkaline Phosphatase 138 U/L (46-116) H Creatine Kinase 127 U/L (39-308) Total Protein 7.1 g/dL (6.4-8.2) Albumin 3.7 g/dL (3.4-5.0) Albumin/Globulin Ratio 1.1 (1.0-1.7) Lipase 369 U/L (73-393) Ethyl Alcohol Level < 10 mg/dL (0-10) Laboratory Tests 04/29/17 13:55 Laboratory Tests 04/29/17 13:55 EKG EKG [] Radiology/Procedures Radiology/Procedures [] Course & Med Decision Making Course & Med Decision Making Patient's labs are completely unremarkable however he has not provided urine to this point. He refused the Haldol but took the Zofran. He had no active vomiting throughout his entire emergency department stay. I told him his labs were normal and he appears well enough to go home but he was adamant about staying in the hospital. He says that I am unreasonable as I will not give him what helps but to my knowledge there is no literature that supports treating cyclic vomiting syndrome with IV opioids and benzodiazepines. I spoke to the hospitalist leasing professional Dr. wilkinson and he is willing to admit the patient for further observation and treatment. Dragon Disclaimer Dragon Disclaimer This electronic medical record was generated, in whole or in part, using a voice recognition dictation system. Departure Departure Impression: Primary Impression: Chronic abdominal pain Additional Impression: Drug-seeking behavior Disposition: ADMITTED INPATIENT Admitting Physician: Yesenia Wilkinson Condition: STABLE Referrals: UNKNOWN PCP NAME (PCP) Problem Qualifiers MELVI BERTRAND DO Apr 29, 2017 13:07
[2017-04-29] MEDS ORDERED: HALOPERIDOL LACTATE 5 MG/ML VIAL. IVP ONE (13:30)
[2017-04-29] MEDS ORDERED: ONDANSETRON PF 4 MG/2 ML VIAL. IV ONE (13:30)
[2017-04-29] MEDS ORDERED: IV NORMAL SALINE 1000ML BAG 1,000 ML IV ONE (14:15)
[2017-04-29 14:16] LABS: BASO # 0.1 x10^3/uL (0.0-0.2); BASO % 1 % (0-3); EOS % 2 % (0-3); HEMATOCRIT 45.7 % (39.0-53.0); HEMOGLOBIN 15.1 g/dL (13.0-17.5); LYMPH # 1.6 x10^3/uL (1.0-4.8); LYMPH % 19 % (24-48); MEAN CORPUSCULAR HEMOGLOBIN 32 pg (25-35); MEAN CORPUSCULAR HGB CONC 33 g/dL (31-37); MEAN CORPUSCULAR VOLUME 97 fL (79-100); MONO % 6 % (0-9); NEUT % 72 % (31-73); PLATELET COUNT 253 x10^3/uL (140-400); RED BLOOD COUNT 4.72 x10^6/uL (4.30-5.70); RED CELL DISTRIBUTION WIDTH 13.5 % (11.5-14.5); WHITE BLOOD COUNT 8.2 x10^3/uL (4.0-11.0)
[2017-04-29 14:22] LABS: CALCIUM 9.1 mg/dL (8.5-10.1); CREATININE 0.7 mg/dL (0.7-1.3); GFR 126.9; POTASSIUM 4.6 mmol/L (3.5-5.1)
[2017-04-29 14:28] LABS: ALBUMIN 3.7 g/dL (3.4-5.0); ALBUMIN/GLOBULIN RATIO 1.1 (1.0-1.7); TOTAL BILIRUBIN 0.1 mg/dL (0.2-1.0); TOTAL PROTEIN 7.1 g/dL (6.4-8.2)
[2017-04-29] MEDS ORDERED: IV DEXTROSE 5 %-0.45 % NACL 1,000 ML IV ONE (14:45)
[2017-04-29 16:26] VITALS: BP 136/89
[2017-04-29] MEDS: ONDANSETRON PF 4 MG/2 ML VIAL. IV PRN ×2 (16:33→19:42)
[2017-04-29] MEDS ORDERED: fentaNYL PF VIAL 100 MCG/2 ML VIAL IV PRN (16:45)
[2017-04-29] MEDS: IV DEXTROSE 5 %-0.45 % NACL 1,000 ML IV SCH (17:00)
[2017-04-29] MEDS ORDERED: HYDROmorphone 2 MG/ML VIAL IM ONE (17:00)
[2017-04-29] MEDS ORDERED: KETOROLAC TROMETHAMINE 60 MG/2 ML INJ. IM ONE (17:00)
[2017-04-29 19:00] VITALS: BP 142/87
[2017-04-29] MEDS: HYDROmorphone 2 MG/ML VIAL IVP PRN ×2 (19:33→23:34)
[2017-04-29 19:50] VITALS: BP 136/89
[2017-04-29] MEDS: fentaNYL PF VIAL 100 MCG/2 ML VIAL IV PRN (20:49)
--- NOTE | 2017-04-29 21:25 | PDOC1 ---
History and Physical Date of Admission Date of Admission DATE: 04/29/17 TIME: 21:22 Identification/Chief Complaint Chief Complaint N vomiting and abd pain Problems: Source Source: Caregiver, Chart review, Patient History of Present Illness History of Present Illness Mr. Bazan, is a 37 year old male admit w. intractable nausea vomiting and abdominal pain. Recent DC 2 days ago, reports unable to keep food down pain 9.10, agitation has insued poor PO intake, freq. vomiting, prior cyclic vomiting admits Prior THC use, I could see none recent documented [facility] GI team Past Medical History Cardiovascular: No pertinent hx Pulmonary: No pertinent hx CENTRAL NERVOUS SYSTEM: Other GI: GERD, Other Psych: Anxiety, Depression Past Surgical History Past Surgical History: Cholecystectomy Family History Family History: No Significant, Other Social History Smoke: No ALCOHOL: none Drugs: Marijuana Current Problem List Problem List Problems Medical Problems: (1) Chronic abdominal pain Status: Acute (2) Drug-seeking behavior Status: Acute Problems: Current Medications Current Medications Current Medications Ondansetron HCl (Zofran) 4 mg 1X ONCE IV Last administered on 04/29/17 14:01 ; Start 04/29/17 at 13:30; Stop 04/29/17 at 13:31; Status DC Haloperidol Lactate (Haldol) 2.5 mg 1X ONCE IVP ; Start 04/29/17 at 13:30; Stop 04/29/17 at 13:31; Status DC Sodium Chloride 1,000 ml @ 1,000 mls/hr 1X ONCE IV Last administered on 14:14; Start 04/29/17 at 14:15; Stop 04/29/17 at 15:14; Status DC Dextrose/Sodium Chloride 1,000 ml @ 100 mls/hr 1X ONCE IV Last administered on 04/29/17 19:35; Start 04/29/17 at 14:45; Stop 04/30/17 at 00:44 Ondansetron HCl (Zofran) 4 mg PRN Q8HRS PRN IV NAUSEA/VOMITING Last administered on 04/29/17 19:42; Start 04/29/17 at 14:45; Stop 04/30/17 at 14:44 Fentanyl Citrate (Fentanyl 2ml Vial) 25 mcg PRN Q2HR PRN IV PAIN; Start at 16:45; Stop 04/29/17 at 16:57; Status DC Hydromorphone HCl (Dilaudid) 1 mg 1X ONCE IM ; Start 04/29/17 at 17:00; Stop at 17:01; Status DC Hydromorphone HCl (Dilaudid) 1 mg PRN Q4HRS PRN IVP PAIN Last administered on 19:33; Start 04/29/17 at 17:00 Ketorolac Tromethamine (Toradol Im) 60 mg 1X ONCE IM ; Start 04/29/17 at 17:00 ; Stop 04/29/17 at 17:01; Status DC Fentanyl Citrate (Fentanyl 2ml Vial) 50 mcg PRN Q2HR PRN IV PAIN Last administered on 04/29/17 20:49; Start 04/29/17 at 17:00 Dextrose/Sodium Chloride 1,000 ml @ 100 mls/hr Q10H IV ; Start 04/29/17 at 17: 00 Active Scripts Active Reported No Known Medications Prior To Admisstion (Info) Each 1 Each Allergies Allergies: Coded Allergies: acetaminophen (Verified Allergy, Intermediate, vomiting, and hives, ) walnut (Verified Allergy, Intermediate, Rash, 04/29/17) morphine (Verified Adverse Reaction, Severe, "makes me crazy" Tolerates Dilaudid,Oxycodone, 04/29/17) ROS General: YES: Fatigue, Malaise, No: Chills, Night Sweats, Appetite, Other PSYCHOLOGICAL ROS: YES: Anxiety, Hostility, Irritablity, No: Behavioral Disorder, Concentration difficultie, Decreased libido, Depression, Disorientation, Hallucinations, Memory difficulties, Mood Swings, Obsessive thoughts, Physical abuse, Sexual abuse, Sleep disturbances, Suicidal ideation, Other Eyes: No Blurry vision, No Decreased vision, No Double vision, No Dry eyes, No Excessive tearing, No Eye Pain, No Itchy Eyes, No Loss of vision, No Photophobia , No Scotomata, No Uses contacts, No Uses glasses, No Other HEENT: YES: Heacaches, No: Visual Changes, Hearing change, Nasal congestion, Nasal discharge, Oral lesions, Sinus pain, Sore Throat, Epistaxis, Sneezing, Snoring, Tinnitus, Vertigo, Vocal changes, Other Respiratory: No: Cough, Hemoptysis, Orthopnea, Pleuritic Pain, Shortness of breath, SOB with excertion, Sputum Changes, Stridor, Tachypnea, Wheezing, Other Cardiovascular: No Chest Pain, No Palpitations, No Orthopnea, No Paroxysmal Noc. Dyspnea, No Edema, No Lt Headedness, No Other Gastrointestinal: Yes Nausea, Yes Vomiting, Yes Abdominal Pain, No Diarrhea, No Constipation, No Melena, No Hematochezia, No Other Musculoskeletal: No Gait Disturbance, No Joint Pain, No Joint Stiffness, No Joint Swelling, No Muscle Pain, No Muscular Weakness, No Pain In:, No Swelling In:, No Other Neurological: Yes Confusion, No Behavorial Changes, No Bowel/Bladder ControlChng, No Dizziness, No Gait Disturbance, No Headaches, No Impaired Coord/balance, No Memory Loss, No Numbness/Tingling, No Seizures, No Speech Problems, No Tremors, No Visual Changes, No Weakness, No Other Skin: No Dry Skin, No Eczema, No Hair Changes, No Lumps, No Mole Changes, No Mottling, No Nail Changes, No Pruritus, No Rash, No Skin Lesion Changes, No Other, No Acne Physical Exam General: Oriented X3, mild distress, moderate distress HEENT: EOMI, Mucous membr. moist/pink Lungs: Clear to auscultation, Normal air movement Heart: S1S2 Extremities: No cyanosis, No edema Skin: No breakdown, Other (n lesion) Neuro: Normal gait, Other Psych/Mental Status: Mood NL, Other Vitals Vitals Vital Signs Date Time Temp Pulse Resp B/P (MAP) Pulse Ox O2 Delivery O2 Flow Rate FiO2 04/29/17 20:49 16 100 Room Air 04/29/17 19:50 97.8 62 136/89 (105) 97.8 04/29/17 19:00 2.0 Labs Labs Laboratory Tests Test 04/29/17 13:55 White Blood Count 8.2 x10^3/uL (4.0-11.0) Red Blood Count 4.72 x10^6/uL (4.30-5.70) Hemoglobin 15.1 g/dL (13.0-17.5) Hematocrit 45.7 % (39.0-53.0) Mean Corpuscular Volume 97 fL (79-100) Mean Corpuscular Hemoglobin 32 pg (25-35) Mean Corpuscular Hemoglobin Concent 33 g/dL (31-37) Red Cell Distribution Width 13.5 % (11.5-14.5) Platelet Count 253 x10^3/uL (140-400) Neutrophils (%) (Auto) 72 % (31-73) Lymphocytes (%) (Auto) 19 % (24-48) Monocytes (%) (Auto) 6 % (0-9) Eosinophils (%) (Auto) 2 % (0-3) Basophils (%) (Auto) 1 % (0-3) Neutrophils # (Auto) 5.9 x10^3uL (1.8-7.7) Lymphocytes # (Auto) 1.6 x10^3/uL (1.0-4.8) Monocytes # (Auto) 0.5 x10^3/uL (0.0-1.1) Eosinophils # (Auto) 0.1 x10^3/uL (0.0-0.7) Basophils # (Auto) 0.1 x10^3/uL (0.0-0.2) Sodium Level 143 mmol/L (136-145) Potassium Level 4.6 mmol/L (3.5-5.1) Chloride Level 107 mmol/L (98-107) Carbon Dioxide Level 28 mmol/L (21-32) Anion Gap 8 (6-14) Blood Urea Nitrogen 11 mg/dL (8-26) Creatinine 0.7 mg/dL (0.7-1.3) Estimated GFR (Cockcroft-Gault) 126.9 BUN/Creatinine Ratio 16 (6-20) Glucose Level 98 mg/dL (70-99) Calcium Level 9.1 mg/dL (8.5-10.1) Magnesium Level 2.0 mg/dL (1.8-2.4) Total Bilirubin 0.1 mg/dL (0.2-1.0) Aspartate Amino Transf (AST/SGOT) 24 U/L (15-37) Alanine Aminotransferase (ALT/SGPT) 101 U/L (16-63) Alkaline Phosphatase 138 U/L (46-116) Creatine Kinase 127 U/L (39-308) Total Protein 7.1 g/dL (6.4-8.2) Albumin 3.7 g/dL (3.4-5.0) Albumin/Globulin Ratio 1.1 (1.0-1.7) Lipase 369 U/L (73-393) Ethyl Alcohol Level < 10 mg/dL (0-10) Laboratory Tests Test 04/29/17 13:55 White Blood Count 8.2 x10^3/uL (4.0-11.0) Red Blood Count 4.72 x10^6/uL (4.30-5.70) Hemoglobin 15.1 g/dL (13.0-17.5) Hematocrit 45.7 % (39.0-53.0) Mean Corpuscular Volume 97 fL (79-100) Mean Corpuscular Hemoglobin 32 pg (25-35) Mean Corpuscular Hemoglobin Concent 33 g/dL (31-37) Red Cell Distribution Width 13.5 % (11.5-14.5) Platelet Count 253 x10^3/uL (140-400) Neutrophils (%) (Auto) 72 % (31-73) Lymphocytes (%) (Auto) 19 % (24-48) Monocytes (%) (Auto) 6 % (0-9) Eosinophils (%) (Auto) 2 % (0-3) Basophils (%) (Auto) 1 % (0-3) Neutrophils # (Auto) 5.9 x10^3uL (1.8-7.7) Lymphocytes # (Auto) 1.6 x10^3/uL (1.0-4.8) Monocytes # (Auto) 0.5 x10^3/uL (0.0-1.1) Eosinophils # (Auto) 0.1 x10^3/uL (0.0-0.7) Basophils # (Auto) 0.1 x10^3/uL (0.0-0.2) Sodium Level 143 mmol/L (136-145) Potassium Level 4.6 mmol/L (3.5-5.1) Chloride Level 107 mmol/L (98-107) Carbon Dioxide Level 28 mmol/L (21-32) Anion Gap 8 (6-14) Blood Urea Nitrogen 11 mg/dL (8-26) Creatinine 0.7 mg/dL (0.7-1.3) Estimated GFR (Cockcroft-Gault) 126.9 BUN/Creatinine Ratio 16 (6-20) Glucose Level 98 mg/dL (70-99) Calcium Level 9.1 mg/dL (8.5-10.1) Magnesium Level 2.0 mg/dL (1.8-2.4) Total Bilirubin 0.1 mg/dL (0.2-1.0) Aspartate Amino Transf (AST/SGOT) 24 U/L (15-37) Alanine Aminotransferase (ALT/SGPT) 101 U/L (16-63) Alkaline Phosphatase 138 U/L (46-116) Creatine Kinase 127 U/L (39-308) Total Protein 7.1 g/dL (6.4-8.2) Albumin 3.7 g/dL (3.4-5.0) Albumin/Globulin Ratio 1.1 (1.0-1.7) Lipase 369 U/L (73-393) Ethyl Alcohol Level < 10 mg/dL (0-10) VTE Prophylaxis Ordered VTE Prophylaxis Devices: No VTE Pharmacological Prophylaxi: Yes Assessment/Plan Assessment/Plan acute abdominal pain nausea and vomiting, intractable cyclic vomiting, muscular dystrophy, quadraparesis, weakness, acquried ALISON RODRIGUEZ MD Apr 29, 2017 21:25
[2017-04-29 23:00] VITALS: BP 123/66
[2017-04-29] MEDS ORDERED: ONDANSETRON PF 4 MG/2 ML VIAL. IV PRN (23:15)
--- NOTE | 2017-04-30 00:53 | ACF ---
Admission Forms Criteria ABDOMINAL PAIN Clinical Indications for Admission to Inpatient Care (Place 'X' for any and all applicable criteria): Admission is indicated for ANY ONE of the following(1)(2)(3)(4)(5): [X ]I. Inpatient admission required rather than observation care (Also use Abdominal Pain: Observation Care, as appropriate) because of ANY ONE of the following: [ ]a) Severe pain requiring acute inpatient management [ ]b) Identification of etiology/finding that requires inpatient care (eg, aortic dissection, free air) [ ]c) Absent bowel sounds with complete ileus(6) [ ]d) Suspected toxic megacolon [ ]e) Severe electrolyte abnormalities requiring inpatient care [ ]f) High fever or infection requiring inpatient admission as indicated by ANY ONE of following(7)(8): [ ] i) Appropriate outpatient or observational care antimicrobial treatment unavailable, not effective, or not feasible [ ] ii) Documented bacteremia [ ] iii) Temperature > 104.9 degrees F (oral) [ ] iv) T >103.1 F (oral) or < 96.8 F(rectal) that does not respond to all emergency treatment measures [ ]g) Signs of intestinal obstruction [B] [ ]h) Hemodynamic instability [ ]i) IV fluid to replace significant ongoing losses (greater than 3 L/m2 per day) (12)(13) [ ]j) Percutaneous or open drainage (eg, abscess, biliary tract ) procedures [ ]k) Parenteral nutrition regimen that must be implemented on inpatient basis [ X]l) Other condition,treatment or monitoring requiring inpatient admission. [ ]II. Peritoneal signs present [ ]III. Surgery needed that cannot be performed on an ambulatory basis. [ ]IV. Evaluation requires patient to not eat or drink for extended period ( eg, more than 24 hours). [ ]V. Contraindications and/or Inappropriate clinical situations for Observational Care in patients with abdominal pain, when ANY ONE of the following is required: [ ]a) Thorough evaluation is required to prevent catastrophic events due to delays in diagnosing (e.g.Mesenteric ischemia) 1,3 [ ]b) Patient with severe pathology or with chronic symptoms unlikely to improve in the ED stay (3) [ ]. General contraindications and/or Inappropriate clinical situations for Observational Care in patients with abdominal pain, when ANY ONE of the following is required: [ ]a) Prediction of prolongation of LOS based on ANY ONE of the following may be considered as a contraindication for observational care 2, 3, 4, 5, 6, 7, 8, 9, 10, 11 [ ]i) Age > 65 yrs. [ ]ii) Patient arriving by ambulance [ ]iii) Patient with high acuity [ ]iv) Patient requiring vital sign monitoring [ ]v) Patient on IV medication [ ]b) Systolic blood pressures 180mmHg 3,12 [ ]c) Patient with altered mental status including delirium and other alteration of consciousness, (3) [ ]d) Patient whose discharge disposition will be to a [facility] home or rehabilitation home should not be managed in Emergency Department Observation Unit. CMS rule requires 3 days hospital stay before such placement.3,13 [ ]e) Patient with failure to thrive due to broad array of etiologies 3,16,17 [ ]f) Inability to ambulate 3,14 Extended stay beyond goal length of stay may be needed for(2)(3): [ ]a) Persistent abdominal pain with suspected intra-abdominal process [ ]b) Diagnosed condition requiring continued stay (e.g., pancreatitis, complicated diverticulitis) [ ]c) Surgery (e.g., colectomy) The original [facility] [facility] content created by [employer] has been revised. The portions of the content which have been revised are identified through the use of italic text or in bold, and [facility] has neither reviewed nor approved the modified material.All other unmodified content is copyright [employer]. Please see references footnoted in the original [employer] [facility] edition 2016 Admission Criteria Met?: Yes ELKE REES Apr 30, 2017 00:53
[2017-04-30] MEDS: HYDROmorphone 2 MG/ML VIAL IVP PRN ×5 (03:37→20:32)
[2017-04-30] MEDS: IV DEXTROSE 5 %-0.45 % NACL 1,000 ML IV SCH ×3 (05:53→23:00)
[2017-04-30] MEDS: fentaNYL PF VIAL 100 MCG/2 ML VIAL IV PRN ×2 (05:54→22:14)
[2017-04-30 06:20] LABS: BASO % 0 % (0-3); EOS % 2 % (0-3); HEMATOCRIT 40.7 % (39.0-53.0); HEMOGLOBIN 13.5 g/dL (13.0-17.5); LYMPH # 2.4 x10^3/uL (1.0-4.8); LYMPH % 18 % (24-48); MEAN CORPUSCULAR HEMOGLOBIN 32 pg (25-35); MEAN CORPUSCULAR HGB CONC 33 g/dL (31-37); MEAN CORPUSCULAR VOLUME 95 fL (79-100); MONO % 7 % (0-9); NEUT % 72 % (31-73); PLATELET COUNT 208 x10^3/uL (140-400); RED BLOOD COUNT 4.28 x10^6/uL (4.30-5.70); RED CELL DISTRIBUTION WIDTH 13.1 % (11.5-14.5); WHITE BLOOD COUNT 13.2 x10^3/uL (4.0-11.0)
[2017-04-30 06:41] LABS: ALBUMIN/GLOBULIN RATIO 1.1 (1.0-1.7); CALCIUM 8.4 mg/dL (8.5-10.1); CREATININE 0.6 mg/dL (0.7-1.3); GFR 151.6; POTASSIUM 3.2 mmol/L (3.5-5.1); TOTAL BILIRUBIN 0.9 mg/dL (0.2-1.0); TOTAL PROTEIN 5.8 g/dL (6.4-8.2)
[2017-04-30 07:00] VITALS: BP_SYST 112; BP_SYST 131; BP_DIAS 61; BP_DIAS 89
[2017-04-30 10:57] VITALS: BP 138/85
[2017-04-30] MEDS: ONDANSETRON PF 4 MG/2 ML VIAL. IV PRN (11:41)
[2017-04-30] MEDS ORDERED: IOHEXOL 240 MG/ML 50ML VIAL. PO ONE (11:45)
[2017-04-30] MEDS ORDERED: IOHEXOL 300 MG/ML 75 ML VIAL IV ONE (11:45)
[2017-04-30] MEDS ORDERED: CONTRAST GIVEN MC PRN (12:00)
--- NOTE | 2017-04-30 13:04 | PDOC ---
SURGICAL PROGRESS NOTE Subjective 37 yo M with cyclic vomitting syndrome feels better since admission abd soft going for CT soon Will follow Thanks for consult! [id number] Vital Signs Vital Signs Date Time Temp Pulse Resp B/P (MAP) Pulse Ox O2 Delivery O2 Flow Rate FiO2 04/30/17 11:53 16 Room Air 04/30/17 10:57 98.3 70 138/85 (102) 97 98.3 04/30/17 07:00 I&O Intake and Output 04/30/17 07:00 Intake Total 1500 ml Output Total 130 ml Balance 1370 ml Intake Oral 500 ml IV Total 1000 ml Output Urine Total 100 ml Emesis 30 ml Labs Laboratory Tests Test 04/29/17 13:55 04/30/17 06:00 White Blood Count 8.2 x10^3/uL (4.0-11.0) 13.2 x10^3/uL (4.0-11.0) Red Blood Count 4.72 x10^6/uL (4.30-5.70) 4.28 x10^6/uL (4.30-5.70) Hemoglobin 15.1 g/dL (13.0-17.5) 13.5 g/dL (13.0-17.5) Hematocrit 45.7 % (39.0-53.0) 40.7 % (39.0-53.0) Mean Corpuscular Volume 97 fL (79-100) 95 fL (79-100) Mean Corpuscular Hemoglobin 32 pg (25-35) 32 pg (25-35) Mean Corpuscular Hemoglobin Concent 33 g/dL (31-37) 33 g/dL (31-37) Red Cell Distribution Width 13.5 % (11.5-14.5) 13.1 % (11.5-14.5) Platelet Count 253 x10^3/uL (140-400) 208 x10^3/uL (140-400) Neutrophils (%) (Auto) 72 % (31-73) 72 % (31-73) Lymphocytes (%) (Auto) 19 % (24-48) 18 % (24-48) Monocytes (%) (Auto) 6 % (0-9) 7 % (0-9) Eosinophils (%) (Auto) 2 % (0-3) 2 % (0-3) Basophils (%) (Auto) 1 % (0-3) 0 % (0-3) Neutrophils # (Auto) 5.9 x10^3uL (1.8-7.7) 9.6 x10^3uL (1.8-7.7) Lymphocytes # (Auto) 1.6 x10^3/uL (1.0-4.8) 2.4 x10^3/uL (1.0-4.8) Monocytes # (Auto) 0.5 x10^3/uL (0.0-1.1) 1.0 x10^3/uL (0.0-1.1) Eosinophils # (Auto) 0.1 x10^3/uL (0.0-0.7) 0.2 x10^3/uL (0.0-0.7) Basophils # (Auto) 0.1 x10^3/uL (0.0-0.2) 0.0 x10^3/uL (0.0-0.2) Sodium Level 143 mmol/L (136-145) 140 mmol/L (136-145) Potassium Level 4.6 mmol/L (3.5-5.1) 3.2 mmol/L (3.5-5.1) Chloride Level 107 mmol/L (98-107) 105 mmol/L (98-107) Carbon Dioxide Level 28 mmol/L (21-32) 30 mmol/L (21-32) Anion Gap 8 (6-14) 5 (6-14) Blood Urea Nitrogen 11 mg/dL (8-26) 7 mg/dL (8-26) Creatinine 0.7 mg/dL (0.7-1.3) 0.6 mg/dL (0.7-1.3) Estimated GFR (Cockcroft-Gault) 126.9 151.6 BUN/Creatinine Ratio 16 (6-20) 12 (6-20) Glucose Level 98 mg/dL (70-99) 105 mg/dL (70-99) Calcium Level 9.1 mg/dL (8.5-10.1) 8.4 mg/dL (8.5-10.1) Magnesium Level 2.0 mg/dL (1.8-2.4) Total Bilirubin 0.1 mg/dL (0.2-1.0) 0.9 mg/dL (0.2-1.0) Aspartate Amino Transf (AST/SGOT) 24 U/L (15-37) 100 U/L (15-37) Alanine Aminotransferase (ALT/SGPT) 101 U/L (16-63) 117 U/L (16-63) Alkaline Phosphatase 138 U/L (46-116) 145 U/L (46-116) Creatine Kinase 127 U/L (39-308) Total Protein 7.1 g/dL (6.4-8.2) 5.8 g/dL (6.4-8.2) Albumin 3.7 g/dL (3.4-5.0) 3.0 g/dL (3.4-5.0) Albumin/Globulin Ratio 1.1 (1.0-1.7) 1.1 (1.0-1.7) Lipase 369 U/L (73-393) Ethyl Alcohol Level < 10 mg/dL (0-10) Prealbumin 17 mg/dL (14-35) Laboratory Tests Test 04/29/17 13:55 04/30/17 06:00 White Blood Count 8.2 x10^3/uL (4.0-11.0) 13.2 x10^3/uL (4.0-11.0) Red Blood Count 4.72 x10^6/uL (4.30-5.70) 4.28 x10^6/uL (4.30-5.70) Hemoglobin 15.1 g/dL (13.0-17.5) 13.5 g/dL (13.0-17.5) Hematocrit 45.7 % (39.0-53.0) 40.7 % (39.0-53.0) Mean Corpuscular Volume 97 fL (79-100) 95 fL (79-100) Mean Corpuscular Hemoglobin 32 pg (25-35) 32 pg (25-35) Mean Corpuscular Hemoglobin Concent 33 g/dL (31-37) 33 g/dL (31-37) Red Cell Distribution Width 13.5 % (11.5-14.5) 13.1 % (11.5-14.5) Platelet Count 253 x10^3/uL (140-400) 208 x10^3/uL (140-400) Neutrophils (%) (Auto) 72 % (31-73) 72 % (31-73) Lymphocytes (%) (Auto) 19 % (24-48) 18 % (24-48) Monocytes (%) (Auto) 6 % (0-9) 7 % (0-9) Eosinophils (%) (Auto) 2 % (0-3) 2 % (0-3) Basophils (%) (Auto) 1 % (0-3) 0 % (0-3) Neutrophils # (Auto) 5.9 x10^3uL (1.8-7.7) 9.6 x10^3uL (1.8-7.7) Lymphocytes # (Auto) 1.6 x10^3/uL (1.0-4.8) 2.4 x10^3/uL (1.0-4.8) Monocytes # (Auto) 0.5 x10^3/uL (0.0-1.1) 1.0 x10^3/uL (0.0-1.1) Eosinophils # (Auto) 0.1 x10^3/uL (0.0-0.7) 0.2 x10^3/uL (0.0-0.7) Basophils # (Auto) 0.1 x10^3/uL (0.0-0.2) 0.0 x10^3/uL (0.0-0.2) Sodium Level 143 mmol/L (136-145) 140 mmol/L (136-145) Potassium Level 4.6 mmol/L (3.5-5.1) 3.2 mmol/L (3.5-5.1) Chloride Level 107 mmol/L (98-107) 105 mmol/L (98-107) Carbon Dioxide Level 28 mmol/L (21-32) 30 mmol/L (21-32) Anion Gap 8 (6-14) 5 (6-14) Blood Urea Nitrogen 11 mg/dL (8-26) 7 mg/dL (8-26) Creatinine 0.7 mg/dL (0.7-1.3) 0.6 mg/dL (0.7-1.3) Estimated GFR (Cockcroft-Gault) 126.9 151.6 BUN/Creatinine Ratio 16 (6-20) 12 (6-20) Glucose Level 98 mg/dL (70-99) 105 mg/dL (70-99) Calcium Level 9.1 mg/dL (8.5-10.1) 8.4 mg/dL (8.5-10.1) Magnesium Level 2.0 mg/dL (1.8-2.4) Total Bilirubin 0.1 mg/dL (0.2-1.0) 0.9 mg/dL (0.2-1.0) Aspartate Amino Transf (AST/SGOT) 24 U/L (15-37) 100 U/L (15-37) Alanine Aminotransferase (ALT/SGPT) 101 U/L (16-63) 117 U/L (16-63) Alkaline Phosphatase 138 U/L (46-116) 145 U/L (46-116) Creatine Kinase 127 U/L (39-308) Total Protein 7.1 g/dL (6.4-8.2) 5.8 g/dL (6.4-8.2) Albumin 3.7 g/dL (3.4-5.0) 3.0 g/dL (3.4-5.0) Albumin/Globulin Ratio 1.1 (1.0-1.7) 1.1 (1.0-1.7) Lipase 369 U/L (73-393) Ethyl Alcohol Level < 10 mg/dL (0-10) Prealbumin 17 mg/dL (14-35) Problem List Problems Medical Problems: (1) Chronic abdominal pain Status: Acute (2) Drug-seeking behavior Status: Acute Problems: AMBREEN GALE MD Apr 30, 2017 13:04
[2017-04-30] MEDS: POTASSIUM CHLORIDE 20MEQ 50 ML IV SCH ×2 (14:01→16:31)
[2017-04-30 14:48] VITALS: BP 135/84
--- NOTE | 2017-04-30 14:53 | PDOC2 ---
GI CONSULT Reason For Consult: [facility] HPI: HPI: 37 y/o white male known to GI from previous admission. Recurrent flares of n/v and abd pain (last began last week), denies precipitating events/aggravating factors, carries diagnosis of cyclic vomiting syndrome, sees gastroenterology at . Was previously on medications for GI symptoms and pain, off all since 2015. Reports EGD w/ mild reflux last year, also 4 hr GES around that time w/ minimally delayed gastric emptying; in fact, he was told he no longer had gastroparesis. Last colonoscopy in 2011. S/p cholecystectomy for sludge. Has told me in the past chronic right-sided pain attributed to ?neurofibromatosis. Pain is there presently, wrapping to mid/lower back. Perhaps has lost a few pounds recently. Last admission SBS was suggested which he declined. Still nausea, no vomiting since yesterday. Had some diarrhea, typical of flares. Tolerating clear liquids, wants to advance diet. Was evaluated by surgery. Note some elevation in LFTs on and off over the years. PMH: PMH: ?neurofibromatosis, Wdydgxy-Lndjx-Armgs syndrome, depression, gastroparesis, GERD, MRSA, cholecystectomy (for sludge) FH: Family History: CVA, Hypertension Social History: Smoke: No ALCOHOL: none Drugs: Marijuana ROS: GEN: Denies fevers, chills, sweats HEENT: Denies blurred vision, sore throat CV: Denies chest pain RESP: Denies shortness of air, cough GI: Per HPI : Denies hematuria, dysuria ENDO: ?weight loss NEURO: Denies confusion, dizziness MSK: Denies weakness, joint pain/swelling SKIN: Denies jaundice, pruritus Vitals: Vitals: Vital Signs Date Time Temp Pulse Resp B/P (MAP) Pulse Ox O2 Delivery O2 Flow Rate FiO2 04/30/17 12:30 18 Room Air 04/30/17 10:57 98.3 70 138/85 (102) 97 98.3 04/30/17 07:00 Labs: Labs: Laboratory Tests Test 04/30/17 06:00 White Blood Count 13.2 x10^3/uL (4.0-11.0) Red Blood Count 4.28 x10^6/uL (4.30-5.70) Hemoglobin 13.5 g/dL (13.0-17.5) Hematocrit 40.7 % (39.0-53.0) Mean Corpuscular Volume 95 fL (79-100) Mean Corpuscular Hemoglobin 32 pg (25-35) Mean Corpuscular Hemoglobin Concent 33 g/dL (31-37) Red Cell Distribution Width 13.1 % (11.5-14.5) Platelet Count 208 x10^3/uL (140-400) Neutrophils (%) (Auto) 72 % (31-73) Lymphocytes (%) (Auto) 18 % (24-48) Monocytes (%) (Auto) 7 % (0-9) Eosinophils (%) (Auto) 2 % (0-3) Basophils (%) (Auto) 0 % (0-3) Neutrophils # (Auto) 9.6 x10^3uL (1.8-7.7) Lymphocytes # (Auto) 2.4 x10^3/uL (1.0-4.8) Monocytes # (Auto) 1.0 x10^3/uL (0.0-1.1) Eosinophils # (Auto) 0.2 x10^3/uL (0.0-0.7) Basophils # (Auto) 0.0 x10^3/uL (0.0-0.2) Sodium Level 140 mmol/L (136-145) Potassium Level 3.2 mmol/L (3.5-5.1) Chloride Level 105 mmol/L (98-107) Carbon Dioxide Level 30 mmol/L (21-32) Anion Gap 5 (6-14) Blood Urea Nitrogen 7 mg/dL (8-26) Creatinine 0.6 mg/dL (0.7-1.3) Estimated GFR (Cockcroft-Gault) 151.6 BUN/Creatinine Ratio 12 (6-20) Glucose Level 105 mg/dL (70-99) Calcium Level 8.4 mg/dL (8.5-10.1) Total Bilirubin 0.9 mg/dL (0.2-1.0) Aspartate Amino Transf (AST/SGOT) 100 U/L (15-37) Alanine Aminotransferase (ALT/SGPT) 117 U/L (16-63) Alkaline Phosphatase 145 U/L (46-116) Total Protein 5.8 g/dL (6.4-8.2) Albumin 3.0 g/dL (3.4-5.0) Albumin/Globulin Ratio 1.1 (1.0-1.7) Prealbumin 17 mg/dL (14-35) Allergies: Coded Allergies: acetaminophen (Verified Allergy, Intermediate, vomiting, and hives, ) walnut (Verified Allergy, Intermediate, Rash, 04/29/17) morphine (Verified Adverse Reaction, Severe, "makes me crazy" Tolerates Dilaudid,Oxycodone, 04/29/17) Medications: Current Medications Medications (Trade) Dose Ordered Sig/Noah Route PRN Reason Start Time Stop Time Status Last Admin Dose Admin Dextrose/Sodium Chloride 1,000 ml @ 100 mls/hr 1X ONCE IV 04/29/17 14:45 04/30/17 00:44 DC 04/29/17 19:35 Ondansetron HCl (Zofran) 4 mg PRN Q8HRS PRN IV NAUSEA/VOMITING 04/29/17 14:45 04/30/17 14:44 04/30/17 11:41 Hydromorphone HCl (Dilaudid) 1 mg PRN Q4HRS PRN IVP PAIN 04/29/17 17:00 04/30/17 11:53 Fentanyl Citrate (Fentanyl 2ml Vial) 50 mcg PRN Q2HR PRN IV PAIN 04/29/17 17:00 04/30/17 05:54 Dextrose/Sodium Chloride 1,000 ml @ 100 mls/hr Q10H IV 04/29/17 17:00 04/30/17 14:02 Ondansetron HCl (Zofran) 8 mg PRN Q8HRS PRN IV NAUSEA/VOMITING 04/29/17 23:15 04/29/17 23:34 Potassium Chloride 50 ml @ 50 mls/hr Q1H IV 04/30/17 12:00 04/30/17 13:59 DC 04/30/17 14:01 Iohexol (Omnipaque 240 Mg/ml) 50 ml 1X ONCE PO 04/30/17 11:45 04/30/17 11:50 DC 04/30/17 11:45 Iohexol (Omnipaque 300 Mg/ml) 75 ml 1X ONCE IV 04/30/17 11:45 04/30/17 11:50 DC 6/13/17 11:45 Imaging: Imaging: CT A/P 04/30/17 PENDING PE: GEN: NAD, thin HEENT: Atraumatic, PERRL LUNGS: CTAB HEART: RRR ABD: NABS, S/ND, RLQ/axillary discomfort to right low back/?flank EXTREMITY: No edema SKIN: No rashes, no jaundice NEURO/PSYCH: A & O 3 A/P: A/P: Recurrent n/v, abd pain -most recently has seen GI at [facility] -EGD 2016: reportedly minimal reflux -4 hr GES 2016: reportedly minimally delayed gastric emptying -colonoscopy 2011 -s/p cholecystectomy for sludge -?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 ?gastroparesis ?cannabinoid syndrome Will check abd US re: LFTs. ?repeat GES ASHUTOSH WEBBER Apr 30, 2017 14:53
--- NOTE | 2017-04-30 14:54 | PDOC ---
PROGRESS NOTES Chief Complaint Chief Complaint acute abdominal pain nausea and vomiting, intractable cyclic vomiting, muscular dystrophy, quadraparesis, weakness, acquried History of Present Illness History of Present Illness was in marked pain this AM, reports much better this afternoon RLQ is same as before, has dx of Neurofibromatosis, pain, Vitals Vitals Vital Signs Date Time Temp Pulse Resp B/P (MAP) Pulse Ox O2 Delivery O2 Flow Rate FiO2 04/30/17 14:48 98.0 71 18 135/84 (101) 97 Room Air 98.0 04/30/17 07:00 Physical Exam General: Oriented X3, No acute distress, mild distress Lungs: Clear Extremities: No cyanosis, No edema Skin: No breakdown, Other (n lesion) Labs LABS Laboratory Tests Test 04/30/17 06:00 White Blood Count 13.2 x10^3/uL (4.0-11.0) Red Blood Count 4.28 x10^6/uL (4.30-5.70) Hemoglobin 13.5 g/dL (13.0-17.5) Hematocrit 40.7 % (39.0-53.0) Mean Corpuscular Volume 95 fL (79-100) Mean Corpuscular Hemoglobin 32 pg (25-35) Mean Corpuscular Hemoglobin Concent 33 g/dL (31-37) Red Cell Distribution Width 13.1 % (11.5-14.5) Platelet Count 208 x10^3/uL (140-400) Neutrophils (%) (Auto) 72 % (31-73) Lymphocytes (%) (Auto) 18 % (24-48) Monocytes (%) (Auto) 7 % (0-9) Eosinophils (%) (Auto) 2 % (0-3) Basophils (%) (Auto) 0 % (0-3) Neutrophils # (Auto) 9.6 x10^3uL (1.8-7.7) Lymphocytes # (Auto) 2.4 x10^3/uL (1.0-4.8) Monocytes # (Auto) 1.0 x10^3/uL (0.0-1.1) Eosinophils # (Auto) 0.2 x10^3/uL (0.0-0.7) Basophils # (Auto) 0.0 x10^3/uL (0.0-0.2) Sodium Level 140 mmol/L (136-145) Potassium Level 3.2 mmol/L (3.5-5.1) Chloride Level 105 mmol/L (98-107) Carbon Dioxide Level 30 mmol/L (21-32) Anion Gap 5 (6-14) Blood Urea Nitrogen 7 mg/dL (8-26) Creatinine 0.6 mg/dL (0.7-1.3) Estimated GFR (Cockcroft-Gault) 151.6 BUN/Creatinine Ratio 12 (6-20) Glucose Level 105 mg/dL (70-99) Calcium Level 8.4 mg/dL (8.5-10.1) Total Bilirubin 0.9 mg/dL (0.2-1.0) Aspartate Amino Transf (AST/SGOT) 100 U/L (15-37) Alanine Aminotransferase (ALT/SGPT) 117 U/L (16-63) Alkaline Phosphatase 145 U/L (46-116) Total Protein 5.8 g/dL (6.4-8.2) Albumin 3.0 g/dL (3.4-5.0) Albumin/Globulin Ratio 1.1 (1.0-1.7) Prealbumin 17 mg/dL (14-35) Review of Systems Review of Systems abd pain nausea wants to eat Assessment and Plan Assessmemt and Plan Problems Medical Problems: (1) Chronic abdominal pain Status: Acute (2) Drug-seeking behavior Status: Acute Problems: Comment Review of Relevant I have reviewed the following items theresa (where applicable) has been applied. Labs Laboratory Tests Test 04/29/17 13:55 04/30/17 06:00 White Blood Count 8.2 x10^3/uL (4.0-11.0) 13.2 x10^3/uL (4.0-11.0) Red Blood Count 4.72 x10^6/uL (4.30-5.70) 4.28 x10^6/uL (4.30-5.70) Hemoglobin 15.1 g/dL (13.0-17.5) 13.5 g/dL (13.0-17.5) Hematocrit 45.7 % (39.0-53.0) 40.7 % (39.0-53.0) Mean Corpuscular Volume 97 fL (79-100) 95 fL (79-100) Mean Corpuscular Hemoglobin 32 pg (25-35) 32 pg (25-35) Mean Corpuscular Hemoglobin Concent 33 g/dL (31-37) 33 g/dL (31-37) Red Cell Distribution Width 13.5 % (11.5-14.5) 13.1 % (11.5-14.5) Platelet Count 253 x10^3/uL (140-400) 208 x10^3/uL (140-400) Neutrophils (%) (Auto) 72 % (31-73) 72 % (31-73) Lymphocytes (%) (Auto) 19 % (24-48) 18 % (24-48) Monocytes (%) (Auto) 6 % (0-9) 7 % (0-9) Eosinophils (%) (Auto) 2 % (0-3) 2 % (0-3) Basophils (%) (Auto) 1 % (0-3) 0 % (0-3) Neutrophils # (Auto) 5.9 x10^3uL (1.8-7.7) 9.6 x10^3uL (1.8-7.7) Lymphocytes # (Auto) 1.6 x10^3/uL (1.0-4.8) 2.4 x10^3/uL (1.0-4.8) Monocytes # (Auto) 0.5 x10^3/uL (0.0-1.1) 1.0 x10^3/uL (0.0-1.1) Eosinophils # (Auto) 0.1 x10^3/uL (0.0-0.7) 0.2 x10^3/uL (0.0-0.7) Basophils # (Auto) 0.1 x10^3/uL (0.0-0.2) 0.0 x10^3/uL (0.0-0.2) Sodium Level 143 mmol/L (136-145) 140 mmol/L (136-145) Potassium Level 4.6 mmol/L (3.5-5.1) 3.2 mmol/L (3.5-5.1) Chloride Level 107 mmol/L (98-107) 105 mmol/L (98-107) Carbon Dioxide Level 28 mmol/L (21-32) 30 mmol/L (21-32) Anion Gap 8 (6-14) 5 (6-14) Blood Urea Nitrogen 11 mg/dL (8-26) 7 mg/dL (8-26) Creatinine 0.7 mg/dL (0.7-1.3) 0.6 mg/dL (0.7-1.3) Estimated GFR (Cockcroft-Gault) 126.9 151.6 BUN/Creatinine Ratio 16 (6-20) 12 (6-20) Glucose Level 98 mg/dL (70-99) 105 mg/dL (70-99) Calcium Level 9.1 mg/dL (8.5-10.1) 8.4 mg/dL (8.5-10.1) Magnesium Level 2.0 mg/dL (1.8-2.4) Total Bilirubin 0.1 mg/dL (0.2-1.0) 0.9 mg/dL (0.2-1.0) Aspartate Amino Transf (AST/SGOT) 24 U/L (15-37) 100 U/L (15-37) Alanine Aminotransferase (ALT/SGPT) 101 U/L (16-63) 117 U/L (16-63) Alkaline Phosphatase 138 U/L (46-116) 145 U/L (46-116) Creatine Kinase 127 U/L (39-308) Total Protein 7.1 g/dL (6.4-8.2) 5.8 g/dL (6.4-8.2) Albumin 3.7 g/dL (3.4-5.0) 3.0 g/dL (3.4-5.0) Albumin/Globulin Ratio 1.1 (1.0-1.7) 1.1 (1.0-1.7) Lipase 369 U/L (73-393) Ethyl Alcohol Level < 10 mg/dL (0-10) Prealbumin 17 mg/dL (14-35) Laboratory Tests Test 04/30/17 06:00 White Blood Count 13.2 x10^3/uL (4.0-11.0) Red Blood Count 4.28 x10^6/uL (4.30-5.70) Hemoglobin 13.5 g/dL (13.0-17.5) Hematocrit 40.7 % (39.0-53.0) Mean Corpuscular Volume 95 fL (79-100) Mean Corpuscular Hemoglobin 32 pg (25-35) Mean Corpuscular Hemoglobin Concent 33 g/dL (31-37) Red Cell Distribution Width 13.1 % (11.5-14.5) Platelet Count 208 x10^3/uL (140-400) Neutrophils (%) (Auto) 72 % (31-73) Lymphocytes (%) (Auto) 18 % (24-48) Monocytes (%) (Auto) 7 % (0-9) Eosinophils (%) (Auto) 2 % (0-3) Basophils (%) (Auto) 0 % (0-3) Neutrophils # (Auto) 9.6 x10^3uL (1.8-7.7) Lymphocytes # (Auto) 2.4 x10^3/uL (1.0-4.8) Monocytes # (Auto) 1.0 x10^3/uL (0.0-1.1) Eosinophils # (Auto) 0.2 x10^3/uL (0.0-0.7) Basophils # (Auto) 0.0 x10^3/uL (0.0-0.2) Sodium Level 140 mmol/L (136-145) Potassium Level 3.2 mmol/L (3.5-5.1) Chloride Level 105 mmol/L (98-107) Carbon Dioxide Level 30 mmol/L (21-32) Anion Gap 5 (6-14) Blood Urea Nitrogen 7 mg/dL (8-26) Creatinine 0.6 mg/dL (0.7-1.3) Estimated GFR (Cockcroft-Gault) 151.6 BUN/Creatinine Ratio 12 (6-20) Glucose Level 105 mg/dL (70-99) Calcium Level 8.4 mg/dL (8.5-10.1) Total Bilirubin 0.9 mg/dL (0.2-1.0) Aspartate Amino Transf (AST/SGOT) 100 U/L (15-37) Alanine Aminotransferase (ALT/SGPT) 117 U/L (16-63) Alkaline Phosphatase 145 U/L (46-116) Total Protein 5.8 g/dL (6.4-8.2) Albumin 3.0 g/dL (3.4-5.0) Albumin/Globulin Ratio 1.1 (1.0-1.7) Prealbumin 17 mg/dL (14-35) Medications Current Medications Ondansetron HCl (Zofran) 4 mg 1X ONCE IV Last administered on 04/29/17 14:01 ; Start 04/29/17 at 13:30; Stop 04/29/17 at 13:31; Status DC Haloperidol Lactate (Haldol) 2.5 mg 1X ONCE IVP ; Start 04/29/17 at 13:30; Stop 04/29/17 at 13:31; Status DC Sodium Chloride 1,000 ml @ 1,000 mls/hr 1X ONCE IV Last administered on 14:14; Start 04/29/17 at 14:15; Stop 04/29/17 at 15:14; Status DC Dextrose/Sodium Chloride 1,000 ml @ 100 mls/hr 1X ONCE IV Last administered on 04/29/17 19:35; Start 04/29/17 at 14:45; Stop 04/30/17 at 00:44; Status DC Ondansetron HCl (Zofran) 4 mg PRN Q8HRS PRN IV NAUSEA/VOMITING Last administered on 04/30/17 11:41; Start 04/29/17 at 14:45; Stop 04/30/17 at 14:44 ; Status DC Fentanyl Citrate (Fentanyl 2ml Vial) 25 mcg PRN Q2HR PRN IV PAIN; Start at 16:45; Stop 04/29/17 at 16:57; Status DC Hydromorphone HCl (Dilaudid) 1 mg 1X ONCE IM ; Start 04/29/17 at 17:00; Stop at 17:01; Status DC Hydromorphone HCl (Dilaudid) 1 mg PRN Q4HRS PRN IVP PAIN Last administered on 11:53; Start 04/29/17 at 17:00 Ketorolac Tromethamine (Toradol Im) 60 mg 1X ONCE IM ; Start 04/29/17 at 17:00 ; Stop 04/29/17 at 17:01; Status DC Fentanyl Citrate (Fentanyl 2ml Vial) 50 mcg PRN Q2HR PRN IV PAIN Last administered on 04/30/17 05:54; Start 04/29/17 at 17:00 Dextrose/Sodium Chloride 1,000 ml @ 100 mls/hr Q10H IV Last administered on 14:02; Start 04/29/17 at 17:00 Ondansetron HCl (Zofran) 8 mg PRN Q8HRS PRN IV NAUSEA/VOMITING Last administered on 04/29/17 23:34; Start 04/29/17 at 23:15 Lorazepam (Ativan) 1 mg PRN Q6HRS PRN IV ANXIETY / AGITATION; Start 04/29/17 at 23:15 Potassium Chloride 50 ml @ 50 mls/hr Q1H IV Last administered on 04/30/17 14: 01; Start 04/30/17 at 12:00; Stop 04/30/17 at 13:59; Status DC Iohexol (Omnipaque 240 Mg/ml) 50 ml 1X ONCE PO Last administered on 04/30/17 11:45; Start 04/30/17 at 11:45; Stop 04/30/17 at 11:50; Status DC Iohexol (Omnipaque 300 Mg/ml) 75 ml 1X ONCE IV Last administered on 04/30/17 11:45; Start 04/30/17 at 11:45; Stop 04/30/17 at 11:50; Status DC Info (Do NOT chart on this entry -- for MONITORING) 1 each PRN DAILY PRN MC SEE COMMENTS; Start 04/30/17 at 12:00; Stop 05/02/17 at 11:59 Active Scripts Active Reported No Known Medications Prior To Admisstion (Info) Each 1 Each Vitals/I & O Vital Sign - Last 24 Hours 04/29/17 04/29/17 04/29/17 04/29/17 15:35 16:26 17:00 19:00 Temp 97.8 98.0 97.8 98.0 Pulse 82 62 61 Resp 18 20 18 18 B/P (MAP) 149/62 (91) 136/89 (105) 142/87 (105) Pulse Ox 99 100 98 O2 Delivery Room Air Room Air Room Air Nasal Cannula O2 Flow Rate 2.0 04/29/17 04/29/17 04/29/17 04/29/17 19:33 19:38 19:50 20:49 Temp 97.8 97.8 Pulse 62 Resp 16 16 B/P (MAP) 136/89 (105) Pulse Ox 100 100 100 O2 Delivery Room Air Room Air Room Air Room Air 04/29/17 04/29/17 04/30/17 04/30/17 23:00 23:34 03:00 03:37 Temp 97.9 97.9 Pulse 78 Resp 18 16 16 B/P (MAP) 123/66 (85) Pulse Ox 100 100 100 O2 Delivery Room Air Room Air 04/30/17 04/30/17 04/30/17 04/30/17 04:30 05:54 06:28 07:00 Temp 98.0 98.0 Pulse 68 Resp 15 15 18 B/P (MAP) 131/89 (103) Pulse Ox 100 100 100 97 O2 Delivery Room Air Room Air Room Air O2 Flow Rate 04/30/17 04/30/17 04/30/17 04/30/17 07:50 08:00 10:57 11:53 Temp 98.3 98.3 Pulse 70 Resp 16 18 16 B/P (MAP) 138/85 (102) Pulse Ox 97 O2 Delivery Room Air Room Air Room Air Room Air 04/30/17 04/30/17 12:30 14:48 Temp 98.0 98.0 Pulse 71 Resp 18 18 B/P (MAP) 135/84 (101) Pulse Ox 97 O2 Delivery Room Air Room Air Intake and Output 04/29/17 04/29/17 04/30/17 15:00 23:00 07:00 Intake Total 1000 ml 500 ml Output Total 30 ml 100 ml Balance 970 ml 400 ml ALISON RODRIGUEZ MD Apr 30, 2017 14:54
--- NOTE | 2017-04-30 15:12 | RAD ---
EXAM: CT abdomen/pelvis with contrast. HISTORY: Right lower quadrant pain. Muscular dystrophy. History of pancreatitis. TECHNIQUE: Computed tomography of the abdomen and pelvis was performed after the intravenous administration of 75 mL Omnipaque 300. COMPARISON: 09/09/2016. FINDINGS: Lung windows through the visualized portions of the bases reveal no abnormality. Bone windows reveal no suspicious lesions. There is a mild pectus excavatum deformity. The gallbladder is surgically absent. The common duct is at the upper limits of normal caliber at 7 mm. Mild edema is noted along the intrahepatic portal radicles. No focal hepatic lesions are seen. Pancreas to be some is incidentally noted. The pancreatic duct is not dilated. No pancreatic parenchymal lesions are seen. The spleen, adrenal glands and right kidney are unremarkable. There are subcentimeter cysts in the left kidney. There are no pathologically enlarged lymph nodes. The appendix is not inflamed. There is an abrupt caliber change along the terminal ileum without clear proximal dilatation to suggest obstruction. This may be from peristalsis. There is mild diffuse bladder wall thickening. The ventricles of the lumbosacral plexus are diffusely enlarged and low in attenuation bilaterally. The origin of the right sciatic nerve is partially calcified and measures 1.8 cm in diameter. This is unchanged. IMPRESSION: 1. The appendix is not inflamed. No clear cause for pain is identified. 2. Caliber change at the terminal ileum without clear obstruction. Reflect only peristalsis but correlate with other clinical data. 3. Periportal edema may be seen in the setting of intravenous rehydration. Correlate to exclude hepatic inflammation. 4. Mild extrahepatic biliary dilatation status post cholecystectomy. Correlate for cholestasis to assess significance. 5. Diffuse enlargement and partial calcification of the lumbosacral plexus. This can be seen in the setting of chronic inflammatory demyelinating polyneuropathy or Wallerian degeneration. Correlate clinically. 6. Mild diffuse bladder wall thickening suggests inflammation. Correlate with urinalysis. *One or more of the following individualized dose reduction techniques were utilized for this examination: 1. Automated exposure control. 2. Adjustment of the mA and/or kV according to patient size. 3. Use of iterative reconstruction technique.
--- NOTE | 2017-04-30 16:43 | RAD ---
EXAM: Right upper quadrant ultrasound. HISTORY: Elevated liver enzymes. COMPARISON: 04/30/2017. FINDINGS: Sonographic evaluation of the right upper quadrant was performed. The liver appears normal in parenchymal echotexture. There are no focal lesions. The gallbladder is surgically absent. There is no sonographic Sánchez sign. The common duct measures 7 mm. No cause for distal obstruction is identified. The visualized portions of the head and body of the pancreas reveal no abnormality. The right kidney measures 11.3 cm. Cortical thickness and echogenicity are preserved. There is no hydronephrosis. The visualized portions of the abdominal aorta and inferior vena cava are grossly patent and normal in caliber. IMPRESSION: 1. The common duct is at the upper limits of normal caliber status post cholecystectomy. This can be a normal finding. Correlate for cholestasis to assess significance.
[2017-04-30 19:00] VITALS: BP 129/84
[2017-04-30 22:46] VITALS: BP 129/88
[2017-05-01] MEDS: HYDROmorphone 2 MG/ML VIAL IVP PRN ×6 (00:33→20:52)
[2017-05-01 03:17] LABS: BILIRUBIN,URINE NEGATIVE (NEG); GLUCOSE,URINE NEGATIVE (NEG); NITRITE,URINE NEGATIVE (NEG); PROTEIN,URINE NEGATIVE (NEG-TRACE)
[2017-05-01 03:22] LABS: BARBITURATES NEG (NEG); BENZODIAZEPINES NEG (NEG); CANNABINOIDS POS (NEG); COCAINE NEG (NEG); METHADONE NEG (NEG); OPIATES POS (NEG); PHENCYCLIDINE NEG (NEG)
[2017-05-01 03:41] LABS: BACTERIA,URINE 0 /HPF (0-FEW); RBC,URINE OCC /HPF (0-2); SQUAMOUS EPITHELIAL CELL,UR OCC /LPF; WBC,URINE 0 /HPF (0-4)
[2017-05-01 05:10] LABS: BASO % 1 % (0-3); EOS % 4 % (0-3); HEMATOCRIT 40.1 % (39.0-53.0); HEMOGLOBIN 14.2 g/dL (13.0-17.5); LYMPH # 2.2 x10^3/uL (1.0-4.8); LYMPH % 31 % (24-48); MEAN CORPUSCULAR HEMOGLOBIN 33 pg (25-35); MEAN CORPUSCULAR HGB CONC 35 g/dL (31-37); MEAN CORPUSCULAR VOLUME 93 fL (79-100); MONO % 11 % (0-9); NEUT % 53 % (31-73); PLATELET COUNT 202 x10^3/uL (140-400); RED BLOOD COUNT 4.29 x10^6/uL (4.30-5.70); RED CELL DISTRIBUTION WIDTH 12.7 % (11.5-14.5); WHITE BLOOD COUNT 6.9 x10^3/uL (4.0-11.0)
[2017-05-01 05:49] LABS: CALCIUM 8.5 mg/dL (8.5-10.1); CREATININE 0.6 mg/dL (0.7-1.3); GFR 151.6; POTASSIUM 3.9 mmol/L (3.5-5.1); TOTAL BILIRUBIN 0.5 mg/dL (0.2-1.0)
[2017-05-01 07:00] VITALS: BP 131/86
[2017-05-01] MEDS: IV DEXTROSE 5 %-0.45 % NACL 1,000 ML IV SCH ×2 (08:49→15:58)
--- NOTE | 2017-05-01 08:56 | CONS ---
DATE OF CONSULTATION: 04/30/2017 REFERRING PHYSICIANS: Dr. Winston Connelly, Dr. Yesenia Serrato, Dr. Melvi Merino. Thank you for the consult. CHIEF COMPLAINT: Nausea, vomiting, abdominal pain. DIAGNOSIS: Cyclic vomiting syndrome. HISTORY OF PRESENT ILLNESS: This is a 37-year-old male with a history of cyclic vomiting syndrome, followed [facility], reports some improvement in this after taking off the large amount of pain medicines a few years ago, now reports approximately 6 episodes a year. He is accompanied by his significant other. He is seen in his hospital room. He does report feeling better since he has been here with some improvements in pain and nausea and vomiting. ALLERGIES: He has no known drug allergies. MEDICATIONS: Reviewed and include narcotic pain medicine, anxiety medicine. PAST MEDICAL HISTORY: Anxiety, depression. PAST SURGICAL HISTORY: Laparoscopic cholecystectomy. SOCIAL HISTORY: Positive for marijuana. REVIEW OF SYSTEMS: All systems reviewed and negative except for HPI. PHYSICAL EXAMINATION: GENERAL: Well-developed thin male in no obvious distress. VITAL SIGNS: He is afebrile. Vital signs within normal limits. HEENT: Normocephalic, atraumatic. Pupils equal, anicteric sclerae. Extraocular motions intact. Oropharynx is clear. No mucosal lesions. NECK: Supple. Trachea is midline. He has pectus excavatum. CHEST: Bilateral chest excursion. No chest wall tenderness to palpation. ABDOMEN: Soft, nondistended, nontender to palpation. He has a small reducible umbilical hernia, which he reports has been present all his life. EXTREMITIES: No clubbing, cyanosis or edema. LABORATORY DATA: His white blood cell count is elevated at 13.2, had been normal on presentation. He has some elevation in liver function tests. He has no current x-rays, although has had a previous delayed gastric emptying and a normal CT abdomen and pelvis in 08/2016. He is going for a CT today. IMPRESSION AND RECOMMENDATIONS: A 37-year-old male with cyclic vomiting syndrome. I agree with supportive care at this time and also agree with CT scan of the abdomen and pelvis to evaluate for another cause for his nausea and vomiting. I will follow up for possible surgical intervention, but no surgical intervention is planned at this time. He is recommended to follow up regarding his umbilical hernia, but since it has been present all his life, he does not appear to be really interested in having this repair, which is reasonable. Thank you for allowing participation in the care of this pleasant patient. AMBREEN GALE MD DR: JONATHAN/katerine JOB#: [id number] / [id number] YESENIA Espinal MD, Sebastian CONNELLY, MELVI TERRY MD
--- NOTE | 2017-05-01 10:36 | PDOC ---
Subjective: Subjective: Feeling better, ate eggs this morning, wants to eat more. Objective: Vital Signs: Vital Signs Date Time Temp Pulse Resp B/P (MAP) Pulse Ox O2 Delivery O2 Flow Rate FiO2 05/01/17 09:10 18 100 Room Air 2.0 05/01/17 07:00 98.0 64 131/86 (101) 98.0 Labs: Laboratory Tests Test 05/01/17 01:49 05/01/17 04:38 Urine Collection Type Unknown Urine Color Yellow Urine Clarity Clear Urine pH 7.0 Urine Specific [place] <=1.005 Urine Protein Negative mg/dL Urine Glucose (UA) Negative mg/dL Urine Ketones (Stick) Negative mg/dL Urine Blood Negative Urine Nitrite Negative Urine Bilirubin Negative Urine Urobilinogen Dipstick 1.0 mg/dL Urine Leukocyte Esterase Negative Urine RBC Occ /HPF Urine WBC 0 /HPF Urine Squamous Epithelial Cells Occ /LPF Urine Bacteria 0 /HPF Urine Opiates Screen Pos Urine Methadone Screen Neg Urine Barbiturates Neg Urine Phencyclidine Screen Neg Urine Amphetamine/Methamphetamine Neg Urine Benzodiazepines Screen Neg Urine Cocaine Screen Neg Urine Cannabinoids Screen Pos Urine Ethyl Alcohol Neg White Blood Count 6.9 x10^3/uL Red Blood Count 4.29 x10^6/uL Hemoglobin 14.2 g/dL Hematocrit 40.1 % Mean Corpuscular Volume 93 fL Mean Corpuscular Hemoglobin 33 pg Mean Corpuscular Hemoglobin Concent 35 g/dL Red Cell Distribution Width 12.7 % Platelet Count 202 x10^3/uL Neutrophils (%) (Auto) 53 % Lymphocytes (%) (Auto) 31 % Monocytes (%) (Auto) 11 % Eosinophils (%) (Auto) 4 % Basophils (%) (Auto) 1 % Neutrophils # (Auto) 3.7 x10^3uL Lymphocytes # (Auto) 2.2 x10^3/uL Monocytes # (Auto) 0.7 x10^3/uL Eosinophils # (Auto) 0.3 x10^3/uL Basophils # (Auto) 0.0 x10^3/uL Sodium Level 139 mmol/L Potassium Level 3.9 mmol/L Chloride Level 104 mmol/L Carbon Dioxide Level 31 mmol/L Anion Gap 4 Blood Urea Nitrogen 6 mg/dL Creatinine 0.6 mg/dL Estimated GFR (Cockcroft-Gault) 151.6 BUN/Creatinine Ratio 10 Glucose Level 93 mg/dL Calcium Level 8.5 mg/dL Total Bilirubin 0.5 mg/dL Aspartate Amino Transf (AST/SGOT) 88 U/L Alanine Aminotransferase (ALT/SGPT) 174 U/L Alkaline Phosphatase 192 U/L Total Protein 6.0 g/dL Albumin 3.0 g/dL Albumin/Globulin Ratio 1.0 Imaging: CT A/P w/ oral and IV contrast IMPRESSION: 1. The appendix is not inflamed. No clear cause for pain is identified. 2. Caliber change at the terminal ileum without clear obstruction. Reflect only peristalsis but correlate with other clinical data. 3. Periportal edema may be seen in the setting of intravenous rehydration. Correlate to exclude hepatic inflammation. 4. Mild extrahepatic biliary dilatation status post cholecystectomy. Correlate for cholestasis to assess significance. 5. Diffuse enlargement and partial calcification of the lumbosacral plexus. This can be seen in the setting of chronic inflammatory demyelinating polyneuropathy or Wallerian degeneration. Correlate clinically. 6. Mild diffuse bladder wall thickening suggests inflammation. Correlate with urinalysis. RUQ US IMPRESSION: 1. The common duct is at the upper limits of normal caliber status post cholecystectomy. This can be a normal finding. Correlate for cholestasis to assess significance. PE: GEN: NAD LUNGS: CTAB HEART: RRR ABD: typical right-sided tenderness, +BS NEURO/PSYCH: A & O 3 A/P: N/v, abd pain - better -extensive workup in the past -?SOD Elevated LFTs - persist -imaging as above -- ADAT, follow-up w/ GI at [facility], ?SO manometry ASHUTOSH WEBBER May 01, 2017 10:36
[2017-05-01 11:00] VITALS: BP 130/92
--- NOTE | 2017-05-01 11:07 | PDOC ---
PROGRESS NOTES Chief Complaint Chief Complaint acute abdominal pain nausea and vomiting, intractable cyclic vomiting, muscular dystrophy, quadraparesis, weakness, acquried History of Present Illness History of Present Illness less pain today ambulatory would like to eat more will f/u [facility] next week try to DC in AM Vitals Vitals Vital Signs Date Time Temp Pulse Resp B/P (MAP) Pulse Ox O2 Delivery O2 Flow Rate FiO2 05/01/17 09:10 18 100 Room Air 2.0 05/01/17 07:00 98.0 64 131/86 (101) 98.0 Physical Exam General: Oriented X3, No acute distress, mild distress Lungs: Clear Extremities: No cyanosis, No edema Skin: No breakdown, Other (n lesion) Labs LABS Laboratory Tests Test 05/01/17 01:49 05/01/17 04:38 Urine Collection Type Unknown Urine Color Yellow Urine Clarity Clear Urine pH 7.0 Urine Specific [place] <=1.005 Urine Protein Negative mg/dL (NEG-TRACE) Urine Glucose (UA) Negative mg/dL (NEG) Urine Ketones (Stick) Negative mg/dL (NEG) Urine Blood Negative (NEG) Urine Nitrite Negative (NEG) Urine Bilirubin Negative (NEG) Urine Urobilinogen Dipstick 1.0 mg/dL (0.2 mg/dL) Urine Leukocyte Esterase Negative (NEG) Urine RBC Occ /HPF (0-2) Urine WBC 0 /HPF (0-4) Urine Squamous Epithelial Cells Occ /LPF Urine Bacteria 0 /HPF (0-FEW) Urine Opiates Screen Pos (NEG) Urine Methadone Screen Neg (NEG) Urine Barbiturates Neg (NEG) Urine Phencyclidine Screen Neg (NEG) Urine Amphetamine/Methamphetamine Neg (NEG) Urine Benzodiazepines Screen Neg (NEG) Urine Cocaine Screen Neg (NEG) Urine Cannabinoids Screen Pos (NEG) Urine Ethyl Alcohol Neg (NEG) White Blood Count 6.9 x10^3/uL (4.0-11.0) Red Blood Count 4.29 x10^6/uL (4.30-5.70) Hemoglobin 14.2 g/dL (13.0-17.5) Hematocrit 40.1 % (39.0-53.0) Mean Corpuscular Volume 93 fL (79-100) Mean Corpuscular Hemoglobin 33 pg (25-35) Mean Corpuscular Hemoglobin Concent 35 g/dL (31-37) Red Cell Distribution Width 12.7 % (11.5-14.5) Platelet Count 202 x10^3/uL (140-400) Neutrophils (%) (Auto) 53 % (31-73) Lymphocytes (%) (Auto) 31 % (24-48) Monocytes (%) (Auto) 11 % (0-9) Eosinophils (%) (Auto) 4 % (0-3) Basophils (%) (Auto) 1 % (0-3) Neutrophils # (Auto) 3.7 x10^3uL (1.8-7.7) Lymphocytes # (Auto) 2.2 x10^3/uL (1.0-4.8) Monocytes # (Auto) 0.7 x10^3/uL (0.0-1.1) Eosinophils # (Auto) 0.3 x10^3/uL (0.0-0.7) Basophils # (Auto) 0.0 x10^3/uL (0.0-0.2) Sodium Level 139 mmol/L (136-145) Potassium Level 3.9 mmol/L (3.5-5.1) Chloride Level 104 mmol/L (98-107) Carbon Dioxide Level 31 mmol/L (21-32) Anion Gap 4 (6-14) Blood Urea Nitrogen 6 mg/dL (8-26) Creatinine 0.6 mg/dL (0.7-1.3) Estimated GFR (Cockcroft-Gault) 151.6 BUN/Creatinine Ratio 10 (6-20) Glucose Level 93 mg/dL (70-99) Calcium Level 8.5 mg/dL (8.5-10.1) Total Bilirubin 0.5 mg/dL (0.2-1.0) Aspartate Amino Transf (AST/SGOT) 88 U/L (15-37) Alanine Aminotransferase (ALT/SGPT) 174 U/L (16-63) Alkaline Phosphatase 192 U/L (46-116) Total Protein 6.0 g/dL (6.4-8.2) Albumin 3.0 g/dL (3.4-5.0) Albumin/Globulin Ratio 1.0 (1.0-1.7) Review of Systems Review of Systems CT ABD 1. The appendix is not inflamed. No clear cause for pain is identified. 2. Caliber change at the terminal ileum without clear obstruction. Reflect only peristalsis but correlate with other clinical data. 3. Periportal edema may be seen in the setting of intravenous rehydration. Correlate to exclude hepatic inflammation. 4. Mild extrahepatic biliary dilatation status post cholecystectomy. Correlate for cholestasis to assess significance. 5. Diffuse enlargement and partial calcification of the lumbosacral plexus. This can be seen in the setting of chronic inflammatory demyelinating polyneuropathy or Wallerian degeneration. Correlate clinically. 6. Mild diffuse bladder wall thickening suggests inflammation. Correlate with urinalysis. RUQ US 1. The common duct is at the upper limits of normal caliber status post cholecystectomy. This can be a normal finding. Correlate for cholestasis to assess significance. Assessment and Plan Assessmemt and Plan Problems Medical Problems: (1) Chronic abdominal pain Status: Acute (2) Drug-seeking behavior Status: Acute Problems: Comment Review of Relevant I have reviewed the following items theresa (where applicable) has been applied. Labs Laboratory Tests Test 04/29/17 13:55 04/30/17 06:00 05/01/17 01:49 05/01/17 04:38 White Blood Count 8.2 x10^3/uL (4.0-11.0) 13.2 x10^3/uL (4.0-11.0) 6.9 x10^3/uL (4.0-11.0) Red Blood Count 4.72 x10^6/uL (4.30-5.70) 4.28 x10^6/uL (4.30-5.70) 4.29 x10^6/uL (4.30-5.70) Hemoglobin 15.1 g/dL (13.0-17.5) 13.5 g/dL (13.0-17.5) 14.2 g/dL (13.0-17.5) Hematocrit 45.7 % (39.0-53.0) 40.7 % (39.0-53.0) 40.1 % (39.0-53.0) Mean Corpuscular Volume 97 fL (79-100) 95 fL (79-100) 93 fL (79-100) Mean Corpuscular Hemoglobin 32 pg (25-35) 32 pg (25-35) 33 pg (25-35) Mean Corpuscular Hemoglobin Concent 33 g/dL (31-37) 33 g/dL (31-37) 35 g/dL (31-37) Red Cell Distribution Width 13.5 % (11.5-14.5) 13.1 % (11.5-14.5) 12.7 % (11.5-14.5) Platelet Count 253 x10^3/uL (140-400) 208 x10^3/uL (140-400) 202 x10^3/uL (140-400) Neutrophils (%) (Auto) 72 % (31-73) 72 % (31-73) 53 % (31-73) Lymphocytes (%) (Auto) 19 % (24-48) 18 % (24-48) 31 % (24-48) Monocytes (%) (Auto) 6 % (0-9) 7 % (0-9) 11 % (0-9) Eosinophils (%) (Auto) 2 % (0-3) 2 % (0-3) 4 % (0-3) Basophils (%) (Auto) 1 % (0-3) 0 % (0-3) 1 % (0-3) Neutrophils # (Auto) 5.9 x10^3uL (1.8-7.7) 9.6 x10^3uL (1.8-7.7) 3.7 x10^3uL (1.8-7.7) Lymphocytes # (Auto) 1.6 x10^3/uL (1.0-4.8) 2.4 x10^3/uL (1.0-4.8) 2.2 x10^3/uL (1.0-4.8) Monocytes # (Auto) 0.5 x10^3/uL (0.0-1.1) 1.0 x10^3/uL (0.0-1.1) 0.7 x10^3/uL (0.0-1.1) Eosinophils # (Auto) 0.1 x10^3/uL (0.0-0.7) 0.2 x10^3/uL (0.0-0.7) 0.3 x10^3/uL (0.0-0.7) Basophils # (Auto) 0.1 x10^3/uL (0.0-0.2) 0.0 x10^3/uL (0.0-0.2) 0.0 x10^3/uL (0.0-0.2) Sodium Level 143 mmol/L (136-145) 140 mmol/L (136-145) 139 mmol/L (136-145) Potassium Level 4.6 mmol/L (3.5-5.1) 3.2 mmol/L (3.5-5.1) 3.9 mmol/L (3.5-5.1) Chloride Level 107 mmol/L (98-107) 105 mmol/L (98-107) 104 mmol/L (98-107) Carbon Dioxide Level 28 mmol/L (21-32) 30 mmol/L (21-32) 31 mmol/L (21-32) Anion Gap 8 (6-14) 5 (6-14) 4 (6-14) Blood Urea Nitrogen 11 mg/dL (8-26) 7 mg/dL (8-26) 6 mg/dL (8-26) Creatinine 0.7 mg/dL (0.7-1.3) 0.6 mg/dL (0.7-1.3) 0.6 mg/dL (0.7-1.3) Estimated GFR (Cockcroft-Gault) 126.9 151.6 151.6 BUN/Creatinine Ratio 16 (6-20) 12 (6-20) 10 (6-20) Glucose Level 98 mg/dL (70-99) 105 mg/dL (70-99) 93 mg/dL (70-99) Calcium Level 9.1 mg/dL (8.5-10.1) 8.4 mg/dL (8.5-10.1) 8.5 mg/dL (8.5-10.1) Magnesium Level 2.0 mg/dL (1.8-2.4) Total Bilirubin 0.1 mg/dL (0.2-1.0) 0.9 mg/dL (0.2-1.0) 0.5 mg/dL (0.2-1.0) Aspartate Amino Transf (AST/SGOT) 24 U/L (15-37) 100 U/L (15-37) 88 U/L (15-37) Alanine Aminotransferase (ALT/SGPT) 101 U/L (16-63) 117 U/L (16-63) 174 U/L (16-63) Alkaline Phosphatase 138 U/L (46-116) 145 U/L (46-116) 192 U/L (46-116) Creatine Kinase 127 U/L (39-308) Total Protein 7.1 g/dL (6.4-8.2) 5.8 g/dL (6.4-8.2) 6.0 g/dL (6.4-8.2) Albumin 3.7 g/dL (3.4-5.0) 3.0 g/dL (3.4-5.0) 3.0 g/dL (3.4-5.0) Albumin/Globulin Ratio 1.1 (1.0-1.7) 1.1 (1.0-1.7) 1.0 (1.0-1.7) Lipase 369 U/L (73-393) Ethyl Alcohol Level < 10 mg/dL (0-10) Prealbumin 17 mg/dL (14-35) Urine Collection Type Unknown Urine Color Yellow Urine Clarity Clear Urine pH 7.0 Urine Specific [place] <=1.005 Urine Protein Negative mg/dL (NEG-TRACE) Urine Glucose (UA) Negative mg/dL (NEG) Urine Ketones (Stick) Negative mg/dL (NEG) Urine Blood Negative (NEG) Urine Nitrite Negative (NEG) Urine Bilirubin Negative (NEG) Urine Urobilinogen Dipstick 1.0 mg/dL (0.2 mg/dL) Urine Leukocyte Esterase Negative (NEG) Urine RBC Occ /HPF (0-2) Urine WBC 0 /HPF (0-4) Urine Squamous Epithelial Cells Occ /LPF Urine Bacteria 0 /HPF (0-FEW) Urine Opiates Screen Pos (NEG) Urine Methadone Screen Neg (NEG) Urine Barbiturates Neg (NEG) Urine Phencyclidine Screen Neg (NEG) Urine Amphetamine/Methamphetamine Neg (NEG) Urine Benzodiazepines Screen Neg (NEG) Urine Cocaine Screen Neg (NEG) Urine Cannabinoids Screen Pos (NEG) Urine Ethyl Alcohol Neg (NEG) Laboratory Tests Test 05/01/17 01:49 05/01/17 04:38 Urine Collection Type Unknown Urine Color Yellow Urine Clarity Clear Urine pH 7.0 Urine Specific [place] <=1.005 Urine Protein Negative mg/dL (NEG-TRACE) Urine Glucose (UA) Negative mg/dL (NEG) Urine Ketones (Stick) Negative mg/dL (NEG) Urine Blood Negative (NEG) Urine Nitrite Negative (NEG) Urine Bilirubin Negative (NEG) Urine Urobilinogen Dipstick 1.0 mg/dL (0.2 mg/dL) Urine Leukocyte Esterase Negative (NEG) Urine RBC Occ /HPF (0-2) Urine WBC 0 /HPF (0-4) Urine Squamous Epithelial Cells Occ /LPF Urine Bacteria 0 /HPF (0-FEW) Urine Opiates Screen Pos (NEG) Urine Methadone Screen Neg (NEG) Urine Barbiturates Neg (NEG) Urine Phencyclidine Screen Neg (NEG) Urine Amphetamine/Methamphetamine Neg (NEG) Urine Benzodiazepines Screen Neg (NEG) Urine Cocaine Screen Neg (NEG) Urine Cannabinoids Screen Pos (NEG) Urine Ethyl Alcohol Neg (NEG) White Blood Count 6.9 x10^3/uL (4.0-11.0) Red Blood Count 4.29 x10^6/uL (4.30-5.70) Hemoglobin 14.2 g/dL (13.0-17.5) Hematocrit 40.1 % (39.0-53.0) Mean Corpuscular Volume 93 fL (79-100) Mean Corpuscular Hemoglobin 33 pg (25-35) Mean Corpuscular Hemoglobin Concent 35 g/dL (31-37) Red Cell Distribution Width 12.7 % (11.5-14.5) Platelet Count 202 x10^3/uL (140-400) Neutrophils (%) (Auto) 53 % (31-73) Lymphocytes (%) (Auto) 31 % (24-48) Monocytes (%) (Auto) 11 % (0-9) Eosinophils (%) (Auto) 4 % (0-3) Basophils (%) (Auto) 1 % (0-3) Neutrophils # (Auto) 3.7 x10^3uL (1.8-7.7) Lymphocytes # (Auto) 2.2 x10^3/uL (1.0-4.8) Monocytes # (Auto) 0.7 x10^3/uL (0.0-1.1) Eosinophils # (Auto) 0.3 x10^3/uL (0.0-0.7) Basophils # (Auto) 0.0 x10^3/uL (0.0-0.2) Sodium Level 139 mmol/L (136-145) Potassium Level 3.9 mmol/L (3.5-5.1) Chloride Level 104 mmol/L (98-107) Carbon Dioxide Level 31 mmol/L (21-32) Anion Gap 4 (6-14) Blood Urea Nitrogen 6 mg/dL (8-26) Creatinine 0.6 mg/dL (0.7-1.3) Estimated GFR (Cockcroft-Gault) 151.6 BUN/Creatinine Ratio 10 (6-20) Glucose Level 93 mg/dL (70-99) Calcium Level 8.5 mg/dL (8.5-10.1) Total Bilirubin 0.5 mg/dL (0.2-1.0) Aspartate Amino Transf (AST/SGOT) 88 U/L (15-37) Alanine Aminotransferase (ALT/SGPT) 174 U/L (16-63) Alkaline Phosphatase 192 U/L (46-116) Total Protein 6.0 g/dL (6.4-8.2) Albumin 3.0 g/dL (3.4-5.0) Albumin/Globulin Ratio 1.0 (1.0-1.7) Medications Current Medications Ondansetron HCl (Zofran) 4 mg 1X ONCE IV Last administered on 04/29/17 14:01 ; Start 04/29/17 at 13:30; Stop 04/29/17 at 13:31; Status DC Haloperidol Lactate (Haldol) 2.5 mg 1X ONCE IVP ; Start 04/29/17 at 13:30; Stop 04/29/17 at 13:31; Status DC Sodium Chloride 1,000 ml @ 1,000 mls/hr 1X ONCE IV Last administered on 14:14; Start 04/29/17 at 14:15; Stop 04/29/17 at 15:14; Status DC Dextrose/Sodium Chloride 1,000 ml @ 100 mls/hr 1X ONCE IV Last administered on 04/29/17 19:35; Start 04/29/17 at 14:45; Stop 04/30/17 at 00:44; Status DC Ondansetron HCl (Zofran) 4 mg PRN Q8HRS PRN IV NAUSEA/VOMITING Last administered on 04/30/17 11:41; Start 04/29/17 at 14:45; Stop 04/30/17 at 14:44 ; Status DC Fentanyl Citrate (Fentanyl 2ml Vial) 25 mcg PRN Q2HR PRN IV PAIN; Start at 16:45; Stop 04/29/17 at 16:57; Status DC Hydromorphone HCl (Dilaudid) 1 mg 1X ONCE IM ; Start 04/29/17 at 17:00; Stop at 17:01; Status DC Hydromorphone HCl (Dilaudid) 1 mg PRN Q4HRS PRN IVP SEVERE PAIN Last administered on 05/01/17 08:49; Start 04/29/17 at 17:00 Ketorolac Tromethamine (Toradol Im) 60 mg 1X ONCE IM ; Start 04/29/17 at 17:00 ; Stop 04/29/17 at 17:01; Status DC Fentanyl Citrate (Fentanyl 2ml Vial) 50 mcg PRN Q2HR PRN IV MODERATE PAIN Last administered on 04/30/17 22:14; Start 04/29/17 at 17:00 Dextrose/Sodium Chloride 1,000 ml @ 100 mls/hr Q10H IV Last administered on 08:49; Start 04/29/17 at 17:00 Ondansetron HCl (Zofran) 8 mg PRN Q8HRS PRN IV NAUSEA/VOMITING Last administered on 04/29/17 23:34; Start 04/29/17 at 23:15 Lorazepam (Ativan) 1 mg PRN Q6HRS PRN IV ANXIETY / AGITATION; Start 04/29/17 at 23:15 Potassium Chloride 50 ml @ 50 mls/hr Q1H IV Last administered on 04/30/17 16: 31; Start 04/30/17 at 12:00; Stop 04/30/17 at 13:59; Status DC Iohexol (Omnipaque 240 Mg/ml) 50 ml 1X ONCE PO Last administered on 04/30/17 11:45; Start 04/30/17 at 11:45; Stop 04/30/17 at 11:50; Status DC Iohexol (Omnipaque 300 Mg/ml) 75 ml 1X ONCE IV Last administered on 04/30/17 11:45; Start 04/30/17 at 11:45; Stop 04/30/17 at 11:50; Status DC Info (Do NOT chart on this entry -- for MONITORING) 1 each PRN DAILY PRN MC SEE COMMENTS; Start 04/30/17 at 12:00; Stop 05/02/17 at 11:59 Active Scripts Active Reported No Known Medications Prior To Admisstion (Info) Each 1 Each MC Vitals/I & O Vital Sign - Last 24 Hours 04/30/17 04/30/17 04/30/17 04/30/17 11:53 14:48 16:26 19:00 Temp 98.0 97.9 98.0 97.9 Pulse 71 63 Resp 16 18 18 17 B/P (MAP) 135/84 (101) 129/84 (99) Pulse Ox 97 100 O2 Delivery Room Air Room Air Room Air Room Air 04/30/17 04/30/17 04/30/17 04/30/17 20:00 22:14 22:44 22:46 Temp 98.2 98.2 Pulse 68 Resp 18 B/P (MAP) 129/88 (102) Pulse Ox 100 98 98 O2 Delivery Room Air Room Air Room Air Room Air O2 Flow Rate 2.0 2.0 05/01/17 05/01/17 05/01/17 05/01/17 00:33 04:41 07:00 08:00 Temp 98.0 98.0 Pulse 64 Resp 18 B/P (MAP) 131/86 (101) Pulse Ox 98 98 100 O2 Delivery Room Air Room Air Room Air Room Air O2 Flow Rate 2.0 2.0 2.0 05/01/17 05/01/17 08:49 09:10 Resp 18 18 Pulse Ox 100 100 O2 Delivery Room Air Room Air O2 Flow Rate 2.0 2.0 Intake and Output 04/30/17 04/30/17 05/01/17 15:00 23:00 07:00 Intake Total 600 ml 900 ml 600 ml Output Total 2150 ml Balance 600 ml 900 ml -1550 ml ALISON RODRIGUEZ MD May 01, 2017 11:07
--- NOTE | 2017-05-01 12:32 | PDOC ---
SURGICAL PROGRESS NOTE Subjective Pt feels better, jennifer PO Vital Signs Vital Signs Date Time Temp Pulse Resp B/P (MAP) Pulse Ox O2 Delivery O2 Flow Rate FiO2 05/01/17 11:00 98.0 68 18 130/92 (105) 99 Room Air 98.0 05/01/17 09:10 2.0 I&O Intake and Output 05/01/17 07:00 Intake Total 2100 ml Output Total 2150 ml Balance -50 ml Intake Oral 2100 ml Output Urine Total 2150 ml # Voids 4 General: Alert, Oriented X3, Cooperative, No acute distress Abdomen: Soft, No tenderness Labs Laboratory Tests Test 04/29/17 13:55 04/30/17 06:00 05/01/17 01:49 05/01/17 04:38 White Blood Count 8.2 x10^3/uL (4.0-11.0) 13.2 x10^3/uL (4.0-11.0) 6.9 x10^3/uL (4.0-11.0) Red Blood Count 4.72 x10^6/uL (4.30-5.70) 4.28 x10^6/uL (4.30-5.70) 4.29 x10^6/uL (4.30-5.70) Hemoglobin 15.1 g/dL (13.0-17.5) 13.5 g/dL (13.0-17.5) 14.2 g/dL (13.0-17.5) Hematocrit 45.7 % (39.0-53.0) 40.7 % (39.0-53.0) 40.1 % (39.0-53.0) Mean Corpuscular Volume 97 fL (79-100) 95 fL (79-100) 93 fL (79-100) Mean Corpuscular Hemoglobin 32 pg (25-35) 32 pg (25-35) 33 pg (25-35) Mean Corpuscular Hemoglobin Concent 33 g/dL (31-37) 33 g/dL (31-37) 35 g/dL (31-37) Red Cell Distribution Width 13.5 % (11.5-14.5) 13.1 % (11.5-14.5) 12.7 % (11.5-14.5) Platelet Count 253 x10^3/uL (140-400) 208 x10^3/uL (140-400) 202 x10^3/uL (140-400) Neutrophils (%) (Auto) 72 % (31-73) 72 % (31-73) 53 % (31-73) Lymphocytes (%) (Auto) 19 % (24-48) 18 % (24-48) 31 % (24-48) Monocytes (%) (Auto) 6 % (0-9) 7 % (0-9) 11 % (0-9) Eosinophils (%) (Auto) 2 % (0-3) 2 % (0-3) 4 % (0-3) Basophils (%) (Auto) 1 % (0-3) 0 % (0-3) 1 % (0-3) Neutrophils # (Auto) 5.9 x10^3uL (1.8-7.7) 9.6 x10^3uL (1.8-7.7) 3.7 x10^3uL (1.8-7.7) Lymphocytes # (Auto) 1.6 x10^3/uL (1.0-4.8) 2.4 x10^3/uL (1.0-4.8) 2.2 x10^3/uL (1.0-4.8) Monocytes # (Auto) 0.5 x10^3/uL (0.0-1.1) 1.0 x10^3/uL (0.0-1.1) 0.7 x10^3/uL (0.0-1.1) Eosinophils # (Auto) 0.1 x10^3/uL (0.0-0.7) 0.2 x10^3/uL (0.0-0.7) 0.3 x10^3/uL (0.0-0.7) Basophils # (Auto) 0.1 x10^3/uL (0.0-0.2) 0.0 x10^3/uL (0.0-0.2) 0.0 x10^3/uL (0.0-0.2) Sodium Level 143 mmol/L (136-145) 140 mmol/L (136-145) 139 mmol/L (136-145) Potassium Level 4.6 mmol/L (3.5-5.1) 3.2 mmol/L (3.5-5.1) 3.9 mmol/L (3.5-5.1) Chloride Level 107 mmol/L (98-107) 105 mmol/L (98-107) 104 mmol/L (98-107) Carbon Dioxide Level 28 mmol/L (21-32) 30 mmol/L (21-32) 31 mmol/L (21-32) Anion Gap 8 (6-14) 5 (6-14) 4 (6-14) Blood Urea Nitrogen 11 mg/dL (8-26) 7 mg/dL (8-26) 6 mg/dL (8-26) Creatinine 0.7 mg/dL (0.7-1.3) 0.6 mg/dL (0.7-1.3) 0.6 mg/dL (0.7-1.3) Estimated GFR (Cockcroft-Gault) 126.9 151.6 151.6 BUN/Creatinine Ratio 16 (6-20) 12 (6-20) 10 (6-20) Glucose Level 98 mg/dL (70-99) 105 mg/dL (70-99) 93 mg/dL (70-99) Calcium Level 9.1 mg/dL (8.5-10.1) 8.4 mg/dL (8.5-10.1) 8.5 mg/dL (8.5-10.1) Magnesium Level 2.0 mg/dL (1.8-2.4) Total Bilirubin 0.1 mg/dL (0.2-1.0) 0.9 mg/dL (0.2-1.0) 0.5 mg/dL (0.2-1.0) Aspartate Amino Transf (AST/SGOT) 24 U/L (15-37) 100 U/L (15-37) 88 U/L (15-37) Alanine Aminotransferase (ALT/SGPT) 101 U/L (16-63) 117 U/L (16-63) 174 U/L (16-63) Alkaline Phosphatase 138 U/L (46-116) 145 U/L (46-116) 192 U/L (46-116) Creatine Kinase 127 U/L (39-308) Total Protein 7.1 g/dL (6.4-8.2) 5.8 g/dL (6.4-8.2) 6.0 g/dL (6.4-8.2) Albumin 3.7 g/dL (3.4-5.0) 3.0 g/dL (3.4-5.0) 3.0 g/dL (3.4-5.0) Albumin/Globulin Ratio 1.1 (1.0-1.7) 1.1 (1.0-1.7) 1.0 (1.0-1.7) Lipase 369 U/L (73-393) Ethyl Alcohol Level < 10 mg/dL (0-10) Prealbumin 17 mg/dL (14-35) Urine Collection Type Unknown Urine Color Yellow Urine Clarity Clear Urine pH 7.0 Urine Specific [place] <=1.005 Urine Protein Negative mg/dL (NEG-TRACE) Urine Glucose (UA) Negative mg/dL (NEG) Urine Ketones (Stick) Negative mg/dL (NEG) Urine Blood Negative (NEG) Urine Nitrite Negative (NEG) Urine Bilirubin Negative (NEG) Urine Urobilinogen Dipstick 1.0 mg/dL (0.2 mg/dL) Urine Leukocyte Esterase Negative (NEG) Urine RBC Occ /HPF (0-2) Urine WBC 0 /HPF (0-4) Urine Squamous Epithelial Cells Occ /LPF Urine Bacteria 0 /HPF (0-FEW) Urine Opiates Screen Pos (NEG) Urine Methadone Screen Neg (NEG) Urine Barbiturates Neg (NEG) Urine Phencyclidine Screen Neg (NEG) Urine Amphetamine/Methamphetamine Neg (NEG) Urine Benzodiazepines Screen Neg (NEG) Urine Cocaine Screen Neg (NEG) Urine Cannabinoids Screen Pos (NEG) Urine Ethyl Alcohol Neg (NEG) Laboratory Tests Test 05/01/17 01:49 05/01/17 04:38 Urine Collection Type Unknown Urine Color Yellow Urine Clarity Clear Urine pH 7.0 Urine Specific [place] <=1.005 Urine Protein Negative mg/dL (NEG-TRACE) Urine Glucose (UA) Negative mg/dL (NEG) Urine Ketones (Stick) Negative mg/dL (NEG) Urine Blood Negative (NEG) Urine Nitrite Negative (NEG) Urine Bilirubin Negative (NEG) Urine Urobilinogen Dipstick 1.0 mg/dL (0.2 mg/dL) Urine Leukocyte Esterase Negative (NEG) Urine RBC Occ /HPF (0-2) Urine WBC 0 /HPF (0-4) Urine Squamous Epithelial Cells Occ /LPF Urine Bacteria 0 /HPF (0-FEW) Urine Opiates Screen Pos (NEG) Urine Methadone Screen Neg (NEG) Urine Barbiturates Neg (NEG) Urine Phencyclidine Screen Neg (NEG) Urine Amphetamine/Methamphetamine Neg (NEG) Urine Benzodiazepines Screen Neg (NEG) Urine Cocaine Screen Neg (NEG) Urine Cannabinoids Screen Pos (NEG) Urine Ethyl Alcohol Neg (NEG) White Blood Count 6.9 x10^3/uL (4.0-11.0) Red Blood Count 4.29 x10^6/uL (4.30-5.70) Hemoglobin 14.2 g/dL (13.0-17.5) Hematocrit 40.1 % (39.0-53.0) Mean Corpuscular Volume 93 fL (79-100) Mean Corpuscular Hemoglobin 33 pg (25-35) Mean Corpuscular Hemoglobin Concent 35 g/dL (31-37) Red Cell Distribution Width 12.7 % (11.5-14.5) Platelet Count 202 x10^3/uL (140-400) Neutrophils (%) (Auto) 53 % (31-73) Lymphocytes (%) (Auto) 31 % (24-48) Monocytes (%) (Auto) 11 % (0-9) Eosinophils (%) (Auto) 4 % (0-3) Basophils (%) (Auto) 1 % (0-3) Neutrophils # (Auto) 3.7 x10^3uL (1.8-7.7) Lymphocytes # (Auto) 2.2 x10^3/uL (1.0-4.8) Monocytes # (Auto) 0.7 x10^3/uL (0.0-1.1) Eosinophils # (Auto) 0.3 x10^3/uL (0.0-0.7) Basophils # (Auto) 0.0 x10^3/uL (0.0-0.2) Sodium Level 139 mmol/L (136-145) Potassium Level 3.9 mmol/L (3.5-5.1) Chloride Level 104 mmol/L (98-107) Carbon Dioxide Level 31 mmol/L (21-32) Anion Gap 4 (6-14) Blood Urea Nitrogen 6 mg/dL (8-26) Creatinine 0.6 mg/dL (0.7-1.3) Estimated GFR (Cockcroft-Gault) 151.6 BUN/Creatinine Ratio 10 (6-20) Glucose Level 93 mg/dL (70-99) Calcium Level 8.5 mg/dL (8.5-10.1) Total Bilirubin 0.5 mg/dL (0.2-1.0) Aspartate Amino Transf (AST/SGOT) 88 U/L (15-37) Alanine Aminotransferase (ALT/SGPT) 174 U/L (16-63) Alkaline Phosphatase 192 U/L (46-116) Total Protein 6.0 g/dL (6.4-8.2) Albumin 3.0 g/dL (3.4-5.0) Albumin/Globulin Ratio 1.0 (1.0-1.7) I have reviewed the following CT wnl, except mild periportal edema Problem List Problems Medical Problems: (1) Chronic abdominal pain Status: Acute (2) Drug-seeking behavior Status: Acute Assessment/Plan cyclic vomiting syndrome pt appears improved agree with cont up with GI at no surgical plans Problems: AMBREEN GALE MD May 01, 2017 12:32
[2017-05-01 15:00] VITALS: BP 110/75
[2017-05-01 19:00] VITALS: BP 125/80
[2017-05-01 23:00] VITALS: BP 130/81
[2017-05-02] MEDS: HYDROmorphone 2 MG/ML VIAL IVP PRN ×3 (01:07→09:40)
[2017-05-02] MEDS: IV DEXTROSE 5 %-0.45 % NACL 1,000 ML IV SCH (01:41)
[2017-05-02] MEDS: fentaNYL PF VIAL 100 MCG/2 ML VIAL IV PRN ×2 (03:54→08:25)
[2017-05-02 06:07] LABS: ALBUMIN/GLOBULIN RATIO 0.9 (1.0-1.7); CALCIUM 8.8 mg/dL (8.5-10.1); CREATININE 0.6 mg/dL (0.7-1.3); GFR 151.6; TOTAL BILIRUBIN 0.3 mg/dL (0.2-1.0); TOTAL PROTEIN 6.4 g/dL (6.4-8.2)
[2017-05-02 07:00] VITALS: BP 126/89
--- NOTE | 2017-05-02 10:30 | PDOC3 ---
Discharge Summary Visit Information Date of Admission: Apr 29, 2017 Date of Discharge: May 02, 2017 Admitting Diagnosis: acute abd pain Final Diagnosis acute abdominal pain exacerbation of neurofibromatosis abd pain nausea and vomiting, intractable cyclic vomiting, muscular dystrophy, quadraparesis, weakness, acquried Problems Medical Problems: (1) Chronic abdominal pain Status: Acute (2) Drug-seeking behavior Status: Acute Brief Hospital Course Allergies Allergies Coded Allergies Type Severity Reaction Last Updated Verified acetaminophen Allergy Intermediate vomiting, and hives 04/29/17 Yes walnut Allergy Intermediate Rash 04/29/17 Yes morphine Adverse Reaction Severe "makes me crazy" Tolerates Dilaudid, Oxycodone 04/29/17 Yes Vital Signs Vital Signs Date Time Temp Pulse Resp B/P (MAP) Pulse Ox O2 Delivery O2 Flow Rate FiO2 05/02/17 10:10 98 Room Air 2.0 05/02/17 09:40 18 05/02/17 07:00 98.0 70 126/89 (101) 98.0 Lab Results Laboratory Tests Test 05/01/17 01:49 05/01/17 04:38 05/02/17 05:30 Urine Collection Type Unknown Urine Color Yellow Urine Clarity Clear Urine pH 7.0 Urine Specific [place] <=1.005 Urine Protein Negative mg/dL (NEG-TRACE) Urine Glucose (UA) Negative mg/dL (NEG) Urine Ketones (Stick) Negative mg/dL (NEG) Urine Blood Negative (NEG) Urine Nitrite Negative (NEG) Urine Bilirubin Negative (NEG) Urine Urobilinogen Dipstick 1.0 mg/dL (0.2 mg/dL) Urine Leukocyte Esterase Negative (NEG) Urine RBC Occ /HPF (0-2) Urine WBC 0 /HPF (0-4) Urine Squamous Epithelial Cells Occ /LPF Urine Bacteria 0 /HPF (0-FEW) Urine Opiates Screen Pos (NEG) Urine Methadone Screen Neg (NEG) Urine Barbiturates Neg (NEG) Urine Phencyclidine Screen Neg (NEG) Urine Amphetamine/Methamphetamine Neg (NEG) Urine Benzodiazepines Screen Neg (NEG) Urine Cocaine Screen Neg (NEG) Urine Cannabinoids Screen Pos (NEG) Urine Ethyl Alcohol Neg (NEG) White Blood Count 6.9 x10^3/uL (4.0-11.0) Red Blood Count 4.29 x10^6/uL (4.30-5.70) Hemoglobin 14.2 g/dL (13.0-17.5) Hematocrit 40.1 % (39.0-53.0) Mean Corpuscular Volume 93 fL (79-100) Mean Corpuscular Hemoglobin 33 pg (25-35) Mean Corpuscular Hemoglobin Concent 35 g/dL (31-37) Red Cell Distribution Width 12.7 % (11.5-14.5) Platelet Count 202 x10^3/uL (140-400) Neutrophils (%) (Auto) 53 % (31-73) Lymphocytes (%) (Auto) 31 % (24-48) Monocytes (%) (Auto) 11 % (0-9) Eosinophils (%) (Auto) 4 % (0-3) Basophils (%) (Auto) 1 % (0-3) Neutrophils # (Auto) 3.7 x10^3uL (1.8-7.7) Lymphocytes # (Auto) 2.2 x10^3/uL (1.0-4.8) Monocytes # (Auto) 0.7 x10^3/uL (0.0-1.1) Eosinophils # (Auto) 0.3 x10^3/uL (0.0-0.7) Basophils # (Auto) 0.0 x10^3/uL (0.0-0.2) Sodium Level 139 mmol/L (136-145) 135 mmol/L (136-145) Potassium Level 3.9 mmol/L (3.5-5.1) 4.0 mmol/L (3.5-5.1) Chloride Level 104 mmol/L (98-107) 102 mmol/L (98-107) Carbon Dioxide Level 31 mmol/L (21-32) 30 mmol/L (21-32) Anion Gap 4 (6-14) 3 (6-14) Blood Urea Nitrogen 6 mg/dL (8-26) 11 mg/dL (8-26) Creatinine 0.6 mg/dL (0.7-1.3) 0.6 mg/dL (0.7-1.3) Estimated GFR (Cockcroft-Gault) 151.6 151.6 BUN/Creatinine Ratio 10 (6-20) 18 (6-20) Glucose Level 93 mg/dL (70-99) 77 mg/dL (70-99) Calcium Level 8.5 mg/dL (8.5-10.1) 8.8 mg/dL (8.5-10.1) Total Bilirubin 0.5 mg/dL (0.2-1.0) 0.3 mg/dL (0.2-1.0) Aspartate Amino Transf (AST/SGOT) 88 U/L (15-37) 41 U/L (15-37) Alanine Aminotransferase (ALT/SGPT) 174 U/L (16-63) 137 U/L (16-63) Alkaline Phosphatase 192 U/L (46-116) 206 U/L (46-116) Total Protein 6.0 g/dL (6.4-8.2) 6.4 g/dL (6.4-8.2) Albumin 3.0 g/dL (3.4-5.0) 3.0 g/dL (3.4-5.0) Albumin/Globulin Ratio 1.0 (1.0-1.7) 0.9 (1.0-1.7) Laboratory Tests Test 05/02/17 05:30 Sodium Level 135 mmol/L (136-145) Potassium Level 4.0 mmol/L (3.5-5.1) Chloride Level 102 mmol/L (98-107) Carbon Dioxide Level 30 mmol/L (21-32) Anion Gap 3 (6-14) Blood Urea Nitrogen 11 mg/dL (8-26) Creatinine 0.6 mg/dL (0.7-1.3) Estimated GFR (Cockcroft-Gault) 151.6 BUN/Creatinine Ratio 18 (6-20) Glucose Level 77 mg/dL (70-99) Calcium Level 8.8 mg/dL (8.5-10.1) Total Bilirubin 0.3 mg/dL (0.2-1.0) Aspartate Amino Transf (AST/SGOT) 41 U/L (15-37) Alanine Aminotransferase (ALT/SGPT) 137 U/L (16-63) Alkaline Phosphatase 206 U/L (46-116) Total Protein 6.4 g/dL (6.4-8.2) Albumin 3.0 g/dL (3.4-5.0) Albumin/Globulin Ratio 0.9 (1.0-1.7) Brief Hospital Course Mr. Bazan is a 37 old w. acute exacerbation of chronic abd pain has neurofibromytosis, likely acute exacerbation CT scan showed mult small problems listed below will f/u [facility] GI next week CT ABD 1. The appendix is not inflamed. No clear cause for pain is identified. 2. Caliber change at the terminal ileum without clear obstruction. Reflect only peristalsis but correlate with other clinical data. 3. Periportal edema may be seen in the setting of intravenous rehydration. Correlate to exclude hepatic inflammation. 4. Mild extrahepatic biliary dilatation status post cholecystectomy. Correlate for cholestasis to assess significance. 5. Diffuse enlargement and partial calcification of the lumbosacral plexus. This can be seen in the setting of chronic inflammatory demyelinating polyneuropathy or [place]ian degeneration. Correlate clinically. 6. Mild diffuse bladder wall thickening suggests inflammation. Correlate with urinalysis. RUQ US 1. The common duct is at the upper limits of normal caliber status post cholecystectomy. This can be a normal finding. Correlate for cholestasis to assess significance. Discharge Information Condition at Discharge: Improved Follow Up: Weeks Disposition/Orders: D/C to Home Miscellaneous Medications Info (No Known Medications Prior To Admisstion), 1 EACH , (Reported) Patient Instructions Patient Instructions time > 30 min no meds for ALISON PASTRANA MD May 02, 2017 10:30
== END 2017-05-02 10:30 | disposition home or self-care (01) | DRG 91 ==
LOC: ER 12:59 → OBSVTOIN 15:20 → 5 SOUTH 15:20
PROVIDERS: ADMIT Internal Medicine; ATTEND Internal Medicine
DX: Q85.00 Neurofibromatosis, unspecified (principal); G82.50 Quadriplegia, unspecified; G71.0 Muscular dystrophy; F32.9 Major depressive disorder, single episode, unspecified; K21.9 Gastro-esophageal reflux disease without esophagitis; G89.29 Other chronic pain; G60.0 Hereditary motor and sensory neuropathy; F12.90 Cannabis use, unspecified, uncomplicated; F41.9 Anxiety disorder, unspecified; R79.89 Other specified abnormal findings of blood chemistry; R11.2 Nausea with vomiting, unspecified; Z82.3 Family history of stroke; Z82.49 Family history of ischemic heart disease and other diseases of the circulatory system; Z90.49 Acquired absence of other specified parts of digestive tract; Z87.01 Personal history of pneumonia (recurrent); Z76.5 Malingerer [conscious simulation]; Z88.5 Allergy status to narcotic agent; Z72.89 Other problems related to lifestyle
CPT/HCPCS: 36415; 74177; 76705; 80053; 81001; 82550; 83690; 83735; 84134; 85027; 96361; 96374; G0480; G0481; J1170; J2405; J3010; J3480; J7030; Q9966; Q9967; 99285-25

== ENCOUNTER 2017-05-28 08:36 | Emergency (ER) | payer OTHER ==
[~2017-05-28] VITALS: Ht 190.5 cm; Wt 59.0 kg
[2017-05-28 09:10] VITALS: BP 123/81
--- NOTE | 2017-05-28 10:12 | ED.ADGEN ---
Past Medical History Past Medical History: Cyclic Vomiting, Pneumonia, Other Additional Past Medical Histor: MUSCULAR DYSTROPHY, neurofibromatosis, gastroparesis, drug seeking behavior Past Surgical History: Cholecystectomy Alcohol Use: Rarely Drug Use: Marijuana Adult General Chief Complaint Chief Complaint: NAUSEA/VOMITING/DIARRHA HPI HPI Patient is a 37 year old male with history of cyclic vomiting things syndrome, continuous marijuana use, neurofibromatosis, muscular dystrophy and drug- seeking behavior who presents with nausea and vomiting chronic abdominal pain. Vomit is nonbilious and IV fluids and Zofran given by EMS prior to arrival. Patient vomits water on ED arrival. States symptoms are consistent with cyclic vomiting syndrome and that he continues to use marijuana. No fevers chills or sweats. Normal vital signs. No other acute symptoms or complaints. Review of Systems Review of Systems Review symptoms as per history of present illness. Allergies Allergies Allergies Coded Allergies Type Severity Reaction Last Updated Verified acetaminophen Allergy Intermediate vomiting, and hives 04/29/17 Yes walnut Allergy Intermediate Rash 04/29/17 Yes morphine Adverse Reaction Severe "makes me crazy" Tolerates Dilaudid, Oxycodone 04/29/17 Yes Physical Exam Physical Exam Constitutional: Well developed, unkept, poor hygiene. HENT: Normocephalic, atraumatic, bilateral external ears normal, oropharynx normal well hydrated. Eyes: PERRLA, EOMI, conjunctiva normal. Neck: Normal range of motion, no tenderness, supple. Cardiovascular:Heart rate regular rhythm, no murmur. Lungs & Thorax: Bilateral breath sounds clear to auscultation. Abdomen: Bowel sounds normal, soft, epigastric pain, tenderness, rebound rigidity or guarding. Skin: Warm, dry. Back: No tenderness. Extremities: No tenderness. Neurologic: Alert and oriented X 3, normal motor function, normal sensory function, no focal deficits noted. Psychologic: Affect normal, judgement normal, mood normal. Current Patient Data Vital Signs Vital Signs Date Time Temp Pulse Resp B/P (MAP) Pulse Ox O2 Delivery O2 Flow Rate FiO2 05/28/17 09:10 88 16 123/81 (95) 100 Room Air 05/28/17 08:36 98.0 98.0 Lab Values Laboratory Tests Test 05/28/17 09:14 Glucose (Fingerstick) 154 mg/dL (70-99) H EKG EKG [] Radiology/Procedures Radiology/Procedures [] Course & Med Decision Making Course & Med Decision Making Pertinent Labs and Imaging studies reviewed. (See chart for details) [Patient with chronic abdominal pain which he states feels like his known cyclic vomiting syndrome. Patient is well-hydrated on evaluation. He has vomited only water in the basin and one time on ED arrival. It does appear to be voluntary. He was given a liter fluids and Zofran by EMS. His abdomen is soft and non-sx. Patient continues to use marijuana which is the probable cause of his symptoms today. Previous ED labs reviewed which have normal chemistry and with blood cell count, . My recommendation is for the patient to discontinue marijuana use and take Phenergan suppositories as needed and to follow up with local PCP or GI physician. No additional workup indicated at this time.] Dragon Disclaimer Dragon Disclaimer This electronic medical record was generated, in whole or in part, using a voice recognition dictation system. SYBIL PIÑA DO May 28, 2017 10:12
== END 2017-05-28 09:30 | disposition home or self-care (01) ==
LOC: ER 08:36
DX: R11.2 Nausea with vomiting, unspecified (principal); R10.13 Epigastric pain; G89.29 Other chronic pain; F12.10 Cannabis abuse, uncomplicated; Z87.01 Personal history of pneumonia (recurrent); Z90.49 Acquired absence of other specified parts of digestive tract; Z88.5 Allergy status to narcotic agent; Z88.8 Allergy status to other drugs, medicaments and biological substances
CPT/HCPCS: 82962; 99284

== ENCOUNTER 2017-06-03 14:12 | Emergency (ER) | payer OTHER ==
[~2017-06-03] VITALS: Ht 190.5 cm; Wt 56.7 kg
[2017-06-03] MEDS ORDERED: IV NORMAL SALINE 1000ML BAG 1,000 ML IV SCH (16:03)
[2017-06-03] MEDS ORDERED: ONDANSETRON PF 4 MG/2 ML VIAL. IV ONE (16:15)
[2017-06-03] MEDS ORDERED: 0.9 % SODIUM CHLORIDE 10 ML DISP.SYRIN. IV PRN (16:15)
[2017-06-03] MEDS ORDERED: HYDROmorphone 2 MG/ML VIAL IV/SQ PRN (16:15)
[2017-06-03] MEDS ORDERED: CONTRAST GIVEN MC PRN (16:30)
[2017-06-03] MEDS ORDERED: IOHEXOL 300 MG/ML 75 ML VIAL IV ONE (16:30)
--- NOTE | 2017-06-03 17:28 | PHYS DOC ---
Past Medical History Past Medical History: Cyclic Vomiting, Pneumonia, Other Additional Past Medical Histor: MUSCULAR DYSTROPHY, neurofibromatosis, gastroparesis, drug seeking behavior Past Surgical History: Cholecystectomy Alcohol Use: Rarely Drug Use: Marijuana Adult General Chief Complaint Chief Complaint: ABDOMINAL PAIN HPI HPI Patient is a 37 year old male with history of cyclic vomiting things syndrome, continuous marijuana use, neurofibromatosis, muscular dystrophy and drug- seeking behavior who presents with nausea and vomiting chronic abdominal pain. Vomit is nonbilious and IV fluids and Zofran given by EMS prior to arrival. Patient vomits water on ED arrival. States symptoms are consistent with cyclic vomiting syndrome and that he continues to use marijuana. No fevers chills or sweats. Patient admits to vomiting so much he can't even keep the number and his head. Patient still uses marijuana daily he denies any sick contacts, denies any travel outside the country, denies any recent raw food consumption, denies any heavily of poultry or reptiles. Review of Systems Review of Systems Constitutional: Denies fever or chills [] Eyes: Denies change in visual acuity, redness, or eye pain [] HENT: Denies nasal congestion or sore throat [] Respiratory: Denies cough or shortness of breath [] Cardiovascular: No additional information not addressed in HPI [] GI: Planes from early of abdominal pain diffuse with nausea vomiting and increased stooling frequency. : Denies dysuria or hematuria [] Musculoskeletal: Denies back pain or joint pain [] Integument: Denies rash or skin lesions [] Neurologic: Denies headache, focal weakness or sensory changes [] Endocrine: Denies polyuria or polydipsia [] Current Medications Current Medications Current Medications Medications (Trade) Dose Ordered Sig/Noah Start Time Stop Time Status Last Admin Dose Admin Haloperidol Lactate (Haldol) 5 mg 1X ONCE 06/03/17 18:00 06/03/17 18:01 06/03/17 17:49 5 MG Hydromorphone HCl (Dilaudid) 1 mg PRN Q15MIN PRN 06/03/17 16:15 06/03/17 17:26 DC Info (Do NOT chart on this entry -- for MONITORING) 1 each PRN DAILY PRN 06/03/17 16:30 06/03/17 17:26 DC Iohexol (Omnipaque 300 Mg/ml) 75 ml 1X ONCE 06/03/17 16:30 06/03/17 17:26 DC Ondansetron HCl (Zofran) 4 mg 1X ONCE 06/03/17 16:15 06/03/17 17:26 DC Promethazine HCl (Phenergan Im) 25 mg 1X ONCE 06/03/17 18:00 06/03/17 18:01 06/03/17 17:49 25 MG Sodium Chloride (Normal Saline Flush) 10 ml QSHIFT PRN 06/03/17 16:15 06/03/17 17:26 DC Allergies Allergies Allergies Coded Allergies Type Severity Reaction Last Updated Verified acetaminophen Allergy Intermediate vomiting, and hives 04/29/17 Yes walnut Allergy Intermediate Rash 04/29/17 Yes morphine Adverse Reaction Severe "makes me crazy" Tolerates Dilaudid, Oxycodone 04/29/17 Yes Physical Exam Physical Exam All the patient's vital signs within normal limits. Constitutional: Patient is cachectic and thin poorly nourished in obvious discomfort. HENT: Normocephalic, atraumatic, bilateral external ears normal, he has dry mucous membranes no oral exudates, nose normal. [] Eyes: PERRLA, EOMI, conjunctiva normal, no discharge. [] Neck: Normal range of motion, no tenderness, supple, no stridor. [] Cardiovascular:Heart rate regular rhythm, no murmur [] Lungs & Thorax: Bilateral breath sounds clear to auscultation [] Abdomen: She has increased bowel sounds soft abdomen but is tender in all quadrants of the abdomen. There is no guarding rebound organomegaly he specifically doesn't have any Sánchez's or McBurney's point tenderness to palpation. Skin: Warm, dry, no erythema, no rash. [] Back: No tenderness, no CVA tenderness. [] Extremities: No tenderness, no cyanosis, no clubbing, ROM intact, no edema. [] Neurologic: Alert and oriented X 3, normal motor function, normal sensory function, no focal deficits noted. [] Psychologic: Patient is usually obsessed with narcotic medications. [] Current Patient Data Vital Signs Vital Signs Date Time Temp Pulse Resp B/P (MAP) Pulse Ox O2 Delivery O2 Flow Rate FiO2 06/03/17 14:33 98.3 71 18 126/84 (98) 99 Room Air 98.3 EKG EKG [] Radiology/Procedures Radiology/Procedures [] Course & Med Decision Making Course & Med Decision Making Pertinent Labs and Imaging studies reviewed. (See chart for details) patient present with his typical cyclic vomiting syndrome with diffuse abdominal pain and intractable nausea and vomiting. The nursing staff were given orders to give him IV fluids antiemetics and pain medications upon arrival but given the fact that he is a very difficult IV stick I have change in medications recently to IM medications. [] he was originally evaluated at approximately 3:30 PM. There is been considerable difficulty getting IV access on this patient. The draw lab work. At this point patient be encouraged to use oral hydration which is good his IV hydration to treat his symptoms. We will proceed only with a noncontrasted CT scan to ensure that there is no obvious signs of appendicitis or bowel obstruction on his presentation. Time is now 4:20 PM patient is still unable to have an IV placed after 4 attempts at IV placement. I've elected to cancel all the IV and administered medications and place him IM. Is a 4:50 PM. Patient has no particular to the CAT scanner to complete his CAT scan without contrast. Patient's vital signs is still remained stable with no tachycardia, no hypotensive no fever. The blood bank and phlebotomy and come by to attempted blood draw him he is at the CAT scan of the time. Time is now 5:40 PM patient's CAT scan is complete without clear signs of obstruction doubt appendicitis. Wait for formal read patient has decided he wants to leave at this time will be given some oral and antiemetics and refer direct his primary care doctor. CAT scan has not been reported at this time patient is willing to assume that risk and the. Impression: Cyclic vomiting syndrome, chronic abdominal pain, drug-seeking behavior, Disposition: Discharged home with antiemetics and PCP follow-up. Dragon Disclaimer Dragon Disclaimer This electronic medical record was generated, in whole or in part, using a voice recognition dictation system. Departure Departure Impression: Primary Impression: Abdominal pain Additional Impressions: Narcotic dependency, continuous N&V (nausea and vomiting) Disposition: 01 HOME, SELF-CARE Condition: STABLE Referrals: NO PCP (PCP) Patient Instructions: Abdominal Pain, Cyclic Vomiting Syndrome, Nausea and Vomiting Additional Instructions: This return for any new symptoms I would also suggest that you follow-up with her primary care doctor for referral to chronic pain management as the ER is not a paced to get his chronic pain under control. It is better treated with a primary care physician and psychiatry. I'm concerned with this patient's presentation that they may be addicted to narcotic medications. Their behavior could be described as drug seeking in nature and I'm concerned that if I do not explain to them my concerns and we have a discussion about how to treat this in the future we will continue to see them using these medications and possibly dangerous manners. We talked about overutilization that the medications associated with narcotics to include acetaminophen when taking large doses can cause liver injury that is permanent nature. We discussed a treatment plan and need for follow-up with a rail car painter/sandblaster to talk about alternatives to narcotic medications. We also talked about possible psychiatric intervention to help him cope with her chronic pain condition. We also discussed possible social work involvement or addiction treatment involvement to help address the possible withdrawal symptoms that may be experiencing which is causing the further use narcotics in this way. I will take the time to provide them addiction clinic information in the follow- up if they choose to accept my help. Scripts Ondansetron (ZOFRAN ODT) 4 Mg Tab.rapdis 4 MG PO BID Y for NAUSEA/VOMITING for 5 Days, #10 TAB Prov: GHASSAN RM MD 06/03/17 Dicyclomine Hcl (BENTYL) 10 Mg Capsule 1 CAP PO TID, #30 CAP 3 Refills Prov: GHASSAN RM MD 06/03/17 Problem Qualifiers GHASSAN RM MD Jun 03, 2017 17:28
[2017-06-03 17:47] VITALS: BP 144/88
[2017-06-03] MEDS ORDERED: ONDA4TAB10 PO (17:57)
[2017-06-03] MEDS ORDERED: DICY10CA53 PO (17:57)
[2017-06-03] MEDS ORDERED: PROMETHAZINE IM 25 MG/ML VIAL IM ONE (18:00)
[2017-06-03] MEDS ORDERED: HALOPERIDOL LACTATE 5 MG/ML VIAL. IM ONE (18:00)
--- NOTE | 2017-06-03 18:12 | RAD ---
CT study of the abdomen and pelvis without contrast Clinical indications: Diffuse abdominal pain. TECHNIQUE: Noncontrast helical CT scanning of the abdomen and pelvis was performed. Without contrast, the sensitivity to detect organ pathology and GI tract pathology is decreased. PQRS compliance Statement One or more of the following individualized dose reduction techniques were utilized for this study: 1. Automated exposure control 2. Adjustment of the mA and/or kV according to patient size 3. Use of iterative reconstruction technique COMPARISON: April 30, 2017. FINDINGS: The liver and spleen and pancreas are homogeneous in appearance on this noncontrast study. The gallbladder is surgically absent and no extrahepatic biliary ductal dilatation is seen. No adrenal mass is evident. Both kidneys are normal without hydronephrosis or hydroureter. Urinary bladder wall is smooth. No focal aneurysmal dilatation of the abdominal aorta is seen. No enlarged abdominal or pelvic lymphadenopathy is seen. The appendix is normal. No obstructive bowel pattern is seen. No free air or free fluid or mesenteric inflammatory change is seen. No lung base consolidation is evident. There is wall thickening of the distal esophagus which may be secondary to reflux esophagitis. Pectus deformity is evident. No osteolytic process is seen. IMPRESSION: No acute abnormality of the abdomen or pelvis is seen. Wall thickening of the distal esophagus which may be secondary to reflux esophagitis. Electronically signed by: Gutierrez Tang MD (06/03/2017 6:09 PM) [facility]
== END 2017-06-03 17:56 | disposition home or self-care (01) ==
LOC: ER 14:12
DX: G89.29 Other chronic pain (principal); R10.84 Generalized abdominal pain; G43.A0 Cyclical vomiting, in migraine, not intractable; R11.0 Nausea; F17.200 Nicotine dependence, unspecified, uncomplicated; F12.10 Cannabis abuse, uncomplicated; Z90.49 Acquired absence of other specified parts of digestive tract; Z76.5 Malingerer [conscious simulation]; Z88.5 Allergy status to narcotic agent; Z88.6 Allergy status to analgesic agent; Z91.018 Allergy to other foods
CPT/HCPCS: 74176; 96372; 99284; J1630; J2550

== ENCOUNTER 2017-08-06 11:22 | Emergency (ER) | payer SELFPAY ==
[~2017-08-06 11:22] MED LIST changes: +DICY10CA53 PO; +ONDA4TAB10 PO
--- NOTE | 2017-08-06 11:56 | PHYS DOC ---
Past Medical History Past Medical History: Cyclic Vomiting, Pneumonia, Other Additional Past Medical Histor: MUSCULAR DYSTROPHY, neurofibromatosis, gastroparesis, drug seeking behavior Past Surgical History: Cholecystectomy Alcohol Use: Rarely Drug Use: Marijuana Adult General Chief Complaint Chief Complaint: ABDOMINAL PAIN HPI HPI Patient is a 37 year old male who long-standing history of cyclic vomiting and chronic abdominal pain with frequent visits to the ER presents with 1 day history of gradual onset moderate severity of intractable nausea and vomiting with mild upper abdominal pain. No hematemesis or black or bloody stools.. No dysuria or flank pain. No fever. Admits to smoking marijuana frequently. Denies taking any pain medications. Review of Systems Review of Systems Constitutional: Denies fever or chills [] Eyes: Denies change in visual acuity, redness, or eye pain [] HENT: Denies nasal congestion or sore throat [] Respiratory: Denies cough or shortness of breath [] Cardiovascular: No additional information not addressed in HPI [] GI: Denies abdominal pain, nausea, vomiting, bloody stools or diarrhea [] : Denies dysuria or hematuria [] Musculoskeletal: Denies back pain or joint pain [] Integument: Denies rash or skin lesions [] Neurologic: Denies headache, focal weakness or sensory changes [] Endocrine: Denies polyuria or polydipsia [] Current Medications Current Medications Current Medications Medications (Trade) Dose Ordered Sig/Noah Start Time Stop Time Status Last Admin Dose Admin Famotidine (Pepcid) 20 mg 1X ONCE 08/06/17 12:15 08/06/17 12:20 DC 08/06/17 12:24 20 MG Lorazepam (Ativan) 0.5 mg 1X ONCE 08/06/17 12:00 08/06/17 12:01 DC 08/06/17 12:01 0.5 MG Multi-Ingredient Mouthwash/Gargle (Gi Cocktail Single Dose) 15 ml 1X ONCE 08/06/17 12:15 08/06/17 12:20 DC Ondansetron HCl (Zofran) 4 mg 1X ONCE 08/06/17 12:00 08/06/17 12:01 DC 08/06/17 11:58 4 MG Potassium Chloride 100 ml @ 100 mls/hr Q1H 08/06/17 14:45 08/06/17 15:44 08/06/17 14:52 100 MLS/HR Potassium Chloride (Klor-Con) 40 meq 1X ONCE 08/06/17 14:00 08/06/17 14:02 DC Sodium Chloride 1,000 ml @ 1,000 mls/hr 1X ONCE 08/06/17 12:00 08/06/17 12:59 DC 08/06/17 11:57 1,000 MLS/HR Sucralfate (Carafate) 1 gm 1X ONCE 08/06/17 12:15 08/06/17 12:20 DC Allergies Allergies Allergies Coded Allergies Type Severity Reaction Last Updated Verified acetaminophen Allergy Intermediate vomiting, and hives 04/29/17 Yes walnut Allergy Intermediate Rash 04/29/17 Yes morphine Adverse Reaction Severe "makes me crazy" Tolerates Dilaudid, Oxycodone 04/29/17 Yes Physical Exam Physical Exam Constitutional: Well developed, well nourished, no acute distress, non-toxic appearance. [] HENT: Normocephalic, atraumatic, bilateral external ears normal, oropharynx moist, no oral exudates, nose normal. [] Eyes: PERRLA, EOMI, conjunctiva normal, no discharge. [] Neck: Normal range of motion, no tenderness, supple, no stridor. [] Cardiovascular:Heart rate regular rhythm, no murmur [] Lungs & Thorax: Bilateral breath sounds clear to auscultation [] Abdomen: Bowel sounds normal, soft, minimal epigastric tenderness, no masses, no pulsatile masses. [] Skin: Warm, dry, no erythema, no rash. [] Back: No tenderness, no CVA tenderness. [] Extremities: No tenderness, no cyanosis, no clubbing, ROM intact, no edema. [] Neurologic: Alert and oriented X 3, normal motor function, normal sensory function, no focal deficits noted. [] Psychologic: Affect normal, judgement normal, mood normal. [] Current Patient Data Vital Signs Vital Signs Date Time Temp Pulse Resp B/P (MAP) Pulse Ox O2 Delivery O2 Flow Rate FiO2 08/06/17 11:29 97.5 89 22 144/88 (106) 99 Room Air 97.5 Lab Values Laboratory Tests Test 08/06/17 11:45 White Blood Count 12.1 x10^3/uL (4.0-11.0) H Red Blood Count 5.95 x10^6/uL (4.30-5.70) H Hemoglobin 19.1 g/dL (13.0-17.5) H Hematocrit 56.2 % (39.0-53.0) H Mean Corpuscular Volume 95 fL (79-100) Mean Corpuscular Hemoglobin 32 pg (25-35) Mean Corpuscular Hemoglobin Concent 34 g/dL (31-37) Red Cell Distribution Width 13.6 % (11.5-14.5) Platelet Count 306 x10^3/uL (140-400) Neutrophils (%) (Auto) 81 % (31-73) H Lymphocytes (%) (Auto) 10 % (24-48) L Monocytes (%) (Auto) 8 % (0-9) Eosinophils (%) (Auto) 0 % (0-3) Basophils (%) (Auto) 0 % (0-3) Neutrophils # (Auto) 9.8 x10^3uL (1.8-7.7) H Lymphocytes # (Auto) 1.3 x10^3/uL (1.0-4.8) Monocytes # (Auto) 1.0 x10^3/uL (0.0-1.1) Eosinophils # (Auto) 0.0 x10^3/uL (0.0-0.7) Basophils # (Auto) 0.0 x10^3/uL (0.0-0.2) Sodium Level 135 mmol/L (136-145) L Potassium Level 2.7 mmol/L (3.5-5.1) *L Chloride Level 89 mmol/L (98-107) L Carbon Dioxide Level 33 mmol/L (21-32) H Anion Gap 13 (6-14) Blood Urea Nitrogen 37 mg/dL (8-26) H Creatinine 1.2 mg/dL (0.7-1.3) Estimated GFR (Cockcroft-Gault) 68.1 BUN/Creatinine Ratio 31 (6-20) H Glucose Level 148 mg/dL (70-99) H Calcium Level 10.5 mg/dL (8.5-10.1) H Magnesium Level 3.0 mg/dL (1.8-2.4) H Total Bilirubin 0.8 mg/dL (0.2-1.0) Aspartate Amino Transferase (AST) 37 U/L (15-37) Alanine Aminotransferase (ALT) 96 U/L (16-63) H Alkaline Phosphatase 191 U/L (46-116) H Total Protein 9.1 g/dL (6.4-8.2) H Albumin 4.8 g/dL (3.4-5.0) Albumin/Globulin Ratio 1.1 (1.0-1.7) Lipase 159 U/L (73-393) Laboratory Tests 08/06/17 11:45 Laboratory Tests 08/06/17 11:45 EKG EKG [] Radiology/Procedures Radiology/Procedures [] Course & Med Decision Making Course & Med Decision Making Pertinent Labs and Imaging studies reviewed. (See chart for details) Labs and symptomatic treatment will be done []Labs demonstrated hypokalemia. Magnesium level was actually elevated and I have counseled the patient to discontinue any products that might contain magnesium such as such as milk of magnesia and avoiding proton pump inhibitors. The patient does not appear to be exhibiting any serious symptomatic issues regarding hypermagnesemia: breathing fine, no hypotension, no neurologic impairment. His nausea and vomiting his chronic conditions of that's difficult to assess.. 1427 PM: Reexamination patient is sleeping resting very comfortably. He's had no episodes of vomiting while in the ED. Patient is comfortable with going home. We will give her oral potassium here and then send him home with scripts for potassium Zofran ODT which is his preference. Dragon Disclaimer Dragon Disclaimer This electronic medical record was generated, in whole or in part, using a voice recognition dictation system. Departure Departure Impression: Primary Impression: Cyclical vomiting with nausea Additional Impressions: Chronic abdominal pain Hypokalemia Hypermagnesemia Disposition: 01 HOME, SELF-CARE Condition: IMPROVED Referrals: BRADY MOELLER (PCP) Patient Instructions: Abdominal Pain, [id number], Cyclic Vomiting Syndrome, Hypokalemia-Brief Additional Instructions: please avoid magnesium containing products and do not take proton pump inhibitors such as Prilosec or Protonix. Scripts Potassium Chloride (POTASSIUM CHLORIDE) 20 Meq Tablet.er 20 MEQ PO DAILY for 7 Days, #7 TAB.SR Prov: HARRIS SALVADOR MD 08/06/17 Ondansetron (ZOFRAN ODT) 4 Mg Tab.rapdis 4 MG PO TID Y for NAUSEA/VOMITING, #14 TAB Prov: HARRIS SALVADOR MD 08/06/17 Problem Qualifiers HARRIS SALVADOR MD Aug 06, 2017 11:56
[2017-08-06] MEDS ORDERED: ONDANSETRON PF 4 MG/2 ML VIAL. IV ONE (12:00)
[2017-08-06] MEDS ORDERED: IV NORMAL SALINE 1000ML BAG 1,000 ML IV ONE (12:00)
[2017-08-06] MEDS ORDERED: LIDO:MAALOX:DONNATAL 1:1:1 15 ML SINGLE DOSE SWSW ONE (12:15)
[2017-08-06] MEDS ORDERED: SUCRALFATE 1 GM TABLET. PO ONE (12:15)
[2017-08-06] MEDS ORDERED: FAMOTIDINE 20 MG/2 ML VIAL IVP ONE (12:15)
[2017-08-06 13:29] LABS: BASO % 0 % (0-3); EOS % 0 % (0-3); HEMATOCRIT 56.2 % (39.0-53.0); HEMOGLOBIN 19.1 g/dL (13.0-17.5); LYMPH # 1.3 x10^3/uL (1.0-4.8); LYMPH % 10 % (24-48); MEAN CORPUSCULAR HEMOGLOBIN 32 pg (25-35); MEAN CORPUSCULAR HGB CONC 34 g/dL (31-37); MEAN CORPUSCULAR VOLUME 95 fL (79-100); MONO % 8 % (0-9); NEUT % 81 % (31-73); PLATELET COUNT 306 x10^3/uL (140-400); RED BLOOD COUNT 5.95 x10^6/uL (4.30-5.70); RED CELL DISTRIBUTION WIDTH 13.6 % (11.5-14.5); WHITE BLOOD COUNT 12.1 x10^3/uL (4.0-11.0)
[2017-08-06 13:48] LABS: ALBUMIN 4.8 g/dL (3.4-5.0); ALBUMIN/GLOBULIN RATIO 1.1 (1.0-1.7); CALCIUM 10.5 mg/dL (8.5-10.1); CREATININE 1.2 mg/dL (0.7-1.3); GFR 68.1; TOTAL BILIRUBIN 0.8 mg/dL (0.2-1.0); TOTAL PROTEIN 9.1 g/dL (6.4-8.2)
[2017-08-06 13:52] LABS: POTASSIUM 2.7 mmol/L (3.5-5.1)
[2017-08-06] MEDS ORDERED: POTASSIUM CHLORIDE 20 MEQ TABLET.ER. PO ONE (14:00)
[2017-08-06] MEDS ORDERED: ONDA4TAB10 PO (14:39)
[2017-08-06] MEDS ORDERED: POTA20TA82 PO (14:39)
[2017-08-06] MEDS ORDERED: POTASSIUM CHLORIDE 10MEQ 100 ML IV SCH (14:45)
[2017-08-06 16:31] VITALS: BP 110/72
== END 2017-08-06 16:40 | disposition home or self-care (01) ==
LOC: ER 11:22
DX: G43.A0 Cyclical vomiting, in migraine, not intractable (principal); G89.29 Other chronic pain; R10.10 Upper abdominal pain, unspecified; E87.6 Hypokalemia; E83.41 Hypermagnesemia; F12.10 Cannabis abuse, uncomplicated; G71.0 Muscular dystrophy; Q85.00 Neurofibromatosis, unspecified; Z88.6 Allergy status to analgesic agent; Z88.5 Allergy status to narcotic agent; Z91.018 Allergy to other foods
CPT/HCPCS: 36415; 80053; 83690; 83735; 85025; 96361; 96365; 96375; 99284; J2060; J2405; J3480; J7030; S0028

== ENCOUNTER 2017-08-08 08:38 | Emergency (ER) | payer MEDICAID ==
[~2017-08-08 08:38] MED LIST changes: +POTA20TA82 PO
[2017-08-08 08:52] VITALS: BP 132/77
--- NOTE | 2017-08-08 09:17 | PHYS DOC ---
Past Medical History Past Medical History: Cyclic Vomiting, Pneumonia, Other Additional Past Medical Histor: MUSCULAR DYSTROPHY, neurofibromatosis, gastroparesis, drug seeking behavior Past Surgical History: Cholecystectomy Alcohol Use: Rarely Drug Use: Marijuana Adult General Chief Complaint Chief Complaint: ABDOMINAL PAIN HPI HPI Patient is a 37 year old male presents to the emergency department with a history of cyclic vomiting. Patient does state he uses marijuana. Patient was seen her 2 days ago with history of hypokalemia, he was provided with IV KCL and discharged home with a prescription. He states he started vomiting after he had left. He presents here today stating he has vomited a dozen times within the last 24 hours with 1 diarrhea stool. Denies blood in emesis or stool. Patient states he is unable to afford getting his prescriptions filled and does not have anyone that can help with getting them. Patient denies fever, chills. Review of Systems Review of Systems Constitutional: Denies fever or chills [] Eyes: Denies change in visual acuity, redness, or eye pain [] HENT: Denies nasal congestion or sore throat [] Respiratory: Denies cough or shortness of breath [] Cardiovascular: No additional information not addressed in HPI [] GI: abdominal pain, nausea, vomiting, and diarrhea [] : Denies dysuria or hematuria [] Musculoskeletal: Denies back pain or joint pain [] Integument: Denies rash or skin lesions [] Neurologic: Denies headache, focal weakness or sensory changes [] Endocrine: Denies polyuria or polydipsia [] Current Medications Current Medications Current Medications Medications (Trade) Dose Ordered Sig/Noah Start Time Stop Time Status Last Admin Dose Admin Dicyclomine HCl (Bentyl) 10 mg 1X ONCE 08/08/17 10:15 08/08/17 10:16 DC Lorazepam (Ativan) 1 mg 1X ONCE 08/08/17 10:30 08/08/17 10:31 08/08/17 10:08 1 MG Ondansetron HCl (Zofran) 4 mg 1X ONCE 08/08/17 09:45 08/08/17 09:46 DC 08/08/17 09:31 4 MG Potassium Chloride (Klor-Con) 20 meq 1X ONCE 08/08/17 10:30 08/08/17 10:31 08/08/17 10:08 20 MEQ Sodium Chloride 1,000 ml @ 1,000 mls/hr 1X ONCE 08/08/17 09:45 08/08/17 10:44 08/08/17 09:31 1,000 MLS/HR Allergies Allergies Allergies Coded Allergies Type Severity Reaction Last Updated Verified acetaminophen Allergy Intermediate vomiting, and hives 04/29/17 Yes walnut Allergy Intermediate Rash 04/29/17 Yes morphine Adverse Reaction Severe "makes me crazy" Tolerates Dilaudid, Oxycodone 04/29/17 Yes Physical Exam Physical Exam Constitutional: Well developed, well nourished, no acute distress, non-toxic appearance. [] HENT: Normocephalic, atraumatic, bilateral external ears normal, oropharynx moist, no oral exudates, nose normal. [] Eyes: PERRLA, EOMI, conjunctiva normal, no discharge. [] Neck: Normal range of motion, no tenderness, supple, no stridor. [] Cardiovascular:Heart rate regular rhythm, no murmur [] Lungs & Thorax: Bilateral breath sounds clear to auscultation [] Abdomen: Bowel sounds hypoactive, soft, generalized tenderness, no masses, no pulsatile masses. no rebound tenderness, no guarding noted Skin: Warm, dry, no erythema, no rash. [] Extremities: No tenderness, no cyanosis, no clubbing, ROM intact, no edema. [] Neurologic: Alert and oriented X 3, normal motor function, normal sensory function, no focal deficits noted. [] Psychologic: Affect normal, judgement normal, mood normal. [] Current Patient Data Vital Signs Vital Signs Date Time Temp Pulse Resp B/P (MAP) Pulse Ox O2 Delivery O2 Flow Rate FiO2 08/08/17 08:52 98.0 95 16 132/77 (95) 99 Room Air 98.0 Lab Values Laboratory Tests Test 08/08/17 09:30 08/08/17 09:55 White Blood Count 9.5 x10^3/uL (4.0-11.0) Red Blood Count 5.56 x10^6/uL (4.30-5.70) Hemoglobin 17.8 g/dL (13.0-17.5) H Hematocrit 52.1 % (39.0-53.0) Mean Corpuscular Volume 94 fL (79-100) Mean Corpuscular Hemoglobin 32 pg (25-35) Mean Corpuscular Hemoglobin Concent 34 g/dL (31-37) Red Cell Distribution Width 13.3 % (11.5-14.5) Platelet Count 271 x10^3/uL (140-400) Neutrophils (%) (Auto) 77 % (31-73) H Lymphocytes (%) (Auto) 13 % (24-48) L Monocytes (%) (Auto) 9 % (0-9) Eosinophils (%) (Auto) 0 % (0-3) Basophils (%) (Auto) 0 % (0-3) Neutrophils # (Auto) 7.4 x10^3uL (1.8-7.7) Lymphocytes # (Auto) 1.3 x10^3/uL (1.0-4.8) Monocytes # (Auto) 0.9 x10^3/uL (0.0-1.1) Eosinophils # (Auto) 0.0 x10^3/uL (0.0-0.7) Basophils # (Auto) 0.0 x10^3/uL (0.0-0.2) Sodium Level 134 mmol/L (136-145) L Potassium Level 3.0 mmol/L (3.5-5.1) L Chloride Level 91 mmol/L (98-107) L Carbon Dioxide Level 36 mmol/L (21-32) H Anion Gap 7 (6-14) Blood Urea Nitrogen 31 mg/dL (8-26) H Creatinine 1.1 mg/dL (0.7-1.3) Estimated GFR (Cockcroft-Gault) 75.3 BUN/Creatinine Ratio 28 (6-20) H Glucose Level 141 mg/dL (70-99) H Calcium Level 9.7 mg/dL (8.5-10.1) Magnesium Level 2.4 mg/dL (1.8-2.4) Total Bilirubin 0.8 mg/dL (0.2-1.0) Aspartate Amino Transferase (AST) 18 U/L (15-37) Alanine Aminotransferase (ALT) 58 U/L (16-63) Alkaline Phosphatase 144 U/L (46-116) H Total Protein 8.3 g/dL (6.4-8.2) H Albumin 4.4 g/dL (3.4-5.0) Albumin/Globulin Ratio 1.1 (1.0-1.7) Urine Opiates Screen Neg (NEG) Urine Methadone Screen Neg (NEG) Urine Barbiturates Neg (NEG) Urine Phencyclidine Screen Neg (NEG) Urine Amphetamine/Methamphetamine Neg (NEG) Urine Benzodiazepines Screen Neg (NEG) Urine Cocaine Screen Neg (NEG) Urine Cannabinoids Screen Pos (NEG) Urine Ethyl Alcohol Neg (NEG) Laboratory Tests 08/08/17 09:30 Laboratory Tests 08/08/17 09:30 EKG EKG [] Radiology/Procedures Radiology/Procedures [] Course & Med Decision Making Course & Med Decision Making Pertinent Labs and Imaging studies reviewed. (See chart for details) Patient was provided with Ativan, zofran and NS here in the emergency department. Potassium was 3.0 he was provided with PO KCL and Ativan. Patient refused Bentyl. He will be discharged home in stable condition. Recommendations for him to followup with primary care provider for further pain management. Patient with no emesis while here in the emergency department. He was provided with discharge instructions, treatment regimen and followup recommendations. Patient was informed that he had no significant abnormal labs requiring admission. All questions and concerns answered at patients beside. [] Dragon Disclaimer Dragon Disclaimer This electronic medical record was generated, in whole or in part, using a voice recognition dictation system. Departure Departure Impression: Primary Impression: Cyclic vomiting syndrome Disposition: 01 HOME, SELF-CARE Condition: STABLE Referrals: BRADY MOELLER (PCP) Patient Instructions: Cyclic Vomiting Syndrome, Marijuana Abuse-Brief Additional Instructions: Activity as tolerated Continue home medications as prescribed Clear liquid diet for the next 24 hours Followup with your primary care for further evaluation for you pain and pain control Return to emergency department as needed for signs and symptoms that become worse. Scripts Ondansetron (ZOFRAN ODT) 4 Mg Tab.rapdis 1 TAB SL Q8HRS, #10 TAB Prov: EVENS PICKENS APRN 08/08/17 EVENS PICKENS APRN Aug 08, 2017 09:17
[2017-08-08] MEDS ORDERED: IV NORMAL SALINE 1000ML BAG 1,000 ML IV ONE (09:45)
[2017-08-08] MEDS ORDERED: ONDANSETRON PF 4 MG/2 ML VIAL. IV ONE (09:45)
[2017-08-08 09:49] LABS: ALBUMIN 4.4 g/dL (3.4-5.0); ALBUMIN/GLOBULIN RATIO 1.1 (1.0-1.7); CALCIUM 9.7 mg/dL (8.5-10.1); CREATININE 1.1 mg/dL (0.7-1.3); GFR 75.3; MAGNESIUM 2.4 mg/dL (1.8-2.4); TOTAL BILIRUBIN 0.8 mg/dL (0.2-1.0); TOTAL PROTEIN 8.3 g/dL (6.4-8.2)
[2017-08-08 09:59] LABS: BASO % 0 % (0-3); EOS % 0 % (0-3); HEMATOCRIT 52.1 % (39.0-53.0); HEMOGLOBIN 17.8 g/dL (13.0-17.5); LYMPH # 1.3 x10^3/uL (1.0-4.8); LYMPH % 13 % (24-48); MEAN CORPUSCULAR HEMOGLOBIN 32 pg (25-35); MEAN CORPUSCULAR HGB CONC 34 g/dL (31-37); MEAN CORPUSCULAR VOLUME 94 fL (79-100); MONO % 9 % (0-9); NEUT % 77 % (31-73); PLATELET COUNT 271 x10^3/uL (140-400); RED BLOOD COUNT 5.56 x10^6/uL (4.30-5.70); RED CELL DISTRIBUTION WIDTH 13.3 % (11.5-14.5); WHITE BLOOD COUNT 9.5 x10^3/uL (4.0-11.0)
[2017-08-08 10:05] LABS: BILIRUBIN,URINE NEGATIVE (NEG); GLUCOSE,URINE NEGATIVE (NEG); NITRITE,URINE NEGATIVE (NEG); PROTEIN,URINE 30 mg/dL (NEG-TRACE)
[2017-08-08 10:11] LABS: BARBITURATES NEG (NEG); BENZODIAZEPINES NEG (NEG); CANNABINOIDS POS (NEG); COCAINE NEG (NEG); METHADONE NEG (NEG); OPIATES NEG (NEG); PHENCYCLIDINE NEG (NEG)
[2017-08-08] MEDS ORDERED: DICYCLOMINE 20 MG/2 ML AMPUL. IM ONE (10:15)
[2017-08-08 10:28] LABS: RBC,URINE OCC /HPF (0-2)
[2017-08-08] MEDS ORDERED: ONDA4TAB10 SL (10:28)
[2017-08-08 10:29] LABS: BACTERIA,URINE 0 /HPF (0-FEW); SQUAMOUS EPITHELIAL CELL,UR OCC /LPF; WBC,URINE 0 /HPF (0-4)
[2017-08-08] MEDS ORDERED: POTASSIUM CHLORIDE 20 MEQ TABLET.ER. PO ONE (10:30)
[2017-08-08] MEDS ORDERED: LORazepam 1 MG TABLET PO ONE (10:30)
== END 2017-08-08 11:18 | disposition home or self-care (01) ==
LOC: ER 08:38
DX: G43.A0 Cyclical vomiting, in migraine, not intractable (principal); Q85.00 Neurofibromatosis, unspecified; Z90.49 Acquired absence of other specified parts of digestive tract; Z88.6 Allergy status to analgesic agent; Z88.5 Allergy status to narcotic agent; Z91.018 Allergy to other foods
CPT/HCPCS: 36415; 80053; 80307; 81001; 83735; 85025; 96361; 96374; 96375; 99284; J2060; J2405; J7030; G0479

== ENCOUNTER 2017-09-25 02:42 | Emergency (ER) | payer MEDICAID ==
[~2017-09-25] VITALS: Ht 177.8 cm; Wt 62.6 kg
[~2017-09-25 02:42] MED LIST changes: +AMOX1TAB11 PO; +DOXY100T PO
[2017-09-25 02:50] VITALS: BP 141/83
[2017-09-25] MEDS ORDERED: IBUP-1027 PO (02:58)
--- NOTE | 2017-09-25 02:58 | PHYS DOC ---
Past Medical History Past Medical History: Cyclic Vomiting, Pneumonia, Other Additional Past Medical Histor: MUSCULAR DYSTROPHY, neurofibromatosis, gastroparesis, drug seeking behavior Past Surgical History: Cholecystectomy Alcohol Use: Rarely Drug Use: Marijuana Adult General Chief Complaint Chief Complaint: DENTAL PROBLEM HPI HPI 37-year-old male presenting to the emergency department today with left lower dental pain. He reports chewing on food days ago when he broke part of his tooth off. He currently is pursuing until care at [facility]. His pain is sharp moderate intermittent and without alleviating factors. Worse with chewing or eating food. Review of systems is negative for stridor drooling difficulty swallowing difficulty breathing tongue swelling. All other review of systems is negative unless otherwise noted in history of present illness. ED course: 37-year-old male presenting with dental pain. Patient was given intramuscular shot of hydromorphone and ibuprofen orally to follow-up with [facility] dentistry this morning. Review of Systems Review of Systems SEE ABOVE. Current Medications Current Medications Current Medications Medications (Trade) Dose Ordered Sig/Noah Start Time Stop Time Status Last Admin Dose Admin Hydromorphone HCl (Dilaudid) 1 mg 1X ONCE 09/25/17 03:00 09/25/17 03:01 UNV Ibuprofen (Motrin) 400 mg 1X ONCE 09/25/17 03:00 09/25/17 03:01 UNV Allergies Allergies Allergies Coded Allergies Type Severity Reaction Last Updated Verified acetaminophen Allergy Intermediate vomiting, and hives 09/19/17 Yes walnut Allergy Intermediate Rash 09/19/17 Yes I S O L A T I O N *CONTACT* Allergy Unknown 09/23/17 Yes morphine Adverse Reaction Severe "makes me crazy" Tolerates Dilaudid, Oxycodone 09/19/17 Yes Physical Exam Physical Exam SEE ABOVE Constitutional: Well developed, well nourished, no acute distress, non-toxic appearance. [] HENT: Normocephalic, atraumatic, bilateral external ears normal, oropharynx moist, no oral exudates, nose normal. Patient has left dental fracture with dentin exposed of the left (17). Tongue is not swollen. No WOODS WARDEN present. No pain to palpation of the neck. No swelling of the sublingual region. No swelling of the neck. No tenesmus. Eyes: PERRLA, EOMI, conjunctiva normal, no discharge. Neck: Normal range of motion, no tenderness, supple, no stridor. [] Cardiovascular:Heart rate regular rhythm, no murmur [] Lungs & Thorax: Bilateral breath sounds clear to auscultation Abdomen: Bowel sounds normal, soft, no tenderness, no masses, no pulsatile masses. [] Skin: Warm, dry, no erythema, no rash. Back: No tenderness, no CVA tenderness. [] Extremities: No tenderness, no cyanosis, no clubbing, ROM intact, no edema. Neurologic: Alert and oriented X 3, normal motor function, normal sensory function, no focal deficits noted. [] Psychologic: Affect normal, judgement normal, mood normal. [] EKG EKG [] Radiology/Procedures Radiology/Procedures [] Course & Med Decision Making Course & Med Decision Making Pertinent Labs and Imaging studies reviewed. (See chart for details) [] Dragon Disclaimer Dragon Disclaimer This electronic medical record was generated, in whole or in part, using a voice recognition dictation system. Departure Departure Impression: Primary Impression: Pain, dental Disposition: HOME, SELF-CARE Condition: STABLE Referrals: NO PCP (PCP) Patient Instructions: Dental Fracture Additional Instructions: Thank you for allowing us to participate in your care today. Followup with your primary care physician in 3 days if your symptoms do not improve. Call your Primary Doctor tomorrow and inform them of your visit today. If you do not have a primary care provider you can ask for a list of our primary care providers. Return to the emergency department you have any new or concerning findings. This should be evaluated by the primary care physician and any necessary consulting services for continued management within a few days after discharge. Return to emergency room if you have any new or concerning symptoms including but not limited to fever, chills, nausea, vomiting, intractable pain, any new rashes, chest pain, shortness of air, uncontrolled bleeding, difficulty breathing, and/or vision loss. Scripts Ibuprofen (IBUPROFEN) 400 Mg Tablet 400 MG PO PRN Q8HRS Y for PAIN, #10 TAB 0 Refills Prov: YESSICA BAKER MD 09/25/17 YESSICA BAKER MD Sep 25, 2017 02:58
[2017-09-25] MEDS ORDERED: HYDROmorphone 2 MG/ML VIAL IM ONE (03:00)
[2017-09-25] MEDS ORDERED: IBUPROFEN 400 MG TABLET. PO ONE (03:00)
== END 2017-09-25 03:15 | disposition home or self-care (01) ==
LOC: ER 02:42
DX: K08.89 Other specified disorders of teeth and supporting structures (principal); Z88.6 Allergy status to analgesic agent; Z91.041 Radiographic dye allergy status; Z88.5 Allergy status to narcotic agent; Z91.018 Allergy to other foods
CPT/HCPCS: 96372; 99283; J1170

== ENCOUNTER 2017-12-04 17:06 | Emergency (ER) | payer MEDICAID ==
[2017-12-04] MEDS: KETOROLAC 30 MG/ML INJ. IV (18:06)
[2017-12-04] MEDS: ONDANSETRON PF 4 MG/2 ML VIAL. IV (18:21)
[2017-12-04 18:22] LABS: ADD MAN DIFF? NO
[2017-12-04] MEDS: fentaNYL PF VIAL 100 MCG/2 ML VIAL IV ×2 (18:22→18:52)
[2017-12-04] MEDS: IV NORMAL SALINE 1000ML BAG 1,000 ML IV (18:23)
[2017-12-04] MEDS: HALOPERIDOL LACTATE 5 MG/ML VIAL. IVP (18:27)
[2017-12-04] MEDS: FAMOTIDINE 20 MG TABLET. PO (18:27)
[2017-12-04] MEDS: LIDO:MAALOX:DONNATAL 1:1:1 15 ML SINGLE DOSE SWSW (18:27)
[2017-12-04 18:29] LABS: BASO # 0.1 x10^3/uL (0.0-0.2); BASO % 1 % (0-3); EOS # 0.2 x10^3/uL (0.0-0.7); EOS % 1 % (0-3); HEMATOCRIT 46.3 % (39.0-53.0); HEMOGLOBIN 15.3 g/dL (13.0-17.5); LYMPH # 1.9 x10^3/uL (1.0-4.8); LYMPH % 16 % (24-48); MEAN CORPUSCULAR HEMOGLOBIN 32 pg (25-35); MEAN CORPUSCULAR HGB CONC 33 g/dL (31-37); MEAN CORPUSCULAR VOLUME 97 fL (79-100); MONO # 0.8 x10^3/uL (0.0-1.1); MONO % 7 % (0-9); NEUT # 8.8 x10^3uL (1.8-7.7); NEUT % 75 % (31-73); PLATELET COUNT 304 x10^3/uL (140-400); RED BLOOD COUNT 4.78 x10^6/uL (4.30-5.70); RED CELL DISTRIBUTION WIDTH 13.1 % (11.5-14.5); WHITE BLOOD COUNT 11.7 x10^3/uL (4.0-11.0)
[2017-12-04 18:52] LABS: ANION GAP 11 (6-14); BLOOD UREA NITROGEN 10 mg/dL (8-26); BUN/CREATININE RATIO 13 (6-20); CALCIUM 8.9 mg/dL (8.5-10.1); CARBON DIOXIDE 28 mmol/L (21-32); CHLORIDE 102 mmol/L (98-107); CREATININE 0.8 mg/dL (0.7-1.3); GFR 108.8; GLUCOSE 139 mg/dL (70-99); POTASSIUM 3.3 mmol/L (3.5-5.1); SODIUM 141 mmol/L (136-145)
[2017-12-04 18:58] LABS: TROPONINI < 0.017 ng/mL (0.000-0.055)
[2017-12-04 18:58] LABS: ALBUMIN 3.4 g/dL (3.4-5.0); ALBUMIN/GLOBULIN RATIO 1.1 (1.0-1.7); ALK PHOS 129 U/L (46-116); ALT (SGPT) 22 U/L (16-63); AST (SGOT) 16 U/L (15-37); LIPASE 128 U/L (73-393); MAGNESIUM 2.1 mg/dL (1.8-2.4); TOTAL BILIRUBIN 0.4 mg/dL (0.2-1.0); TOTAL PROTEIN 6.6 g/dL (6.4-8.2)
[2017-12-04] MEDS: POTASSIUM CHLORIDE 20 MEQ TABLET.ER. PO (19:21)
== END 2017-12-04 19:42 | disposition home or self-care (01) ==
LOC: ER 17:06
DX: R10.31 Right lower quadrant pain (principal); R11.2 Nausea with vomiting, unspecified; R19.7 Diarrhea, unspecified; K31.84 Gastroparesis; F17.200 Nicotine dependence, unspecified, uncomplicated; F12.10 Cannabis abuse, uncomplicated; Z90.49 Acquired absence of other specified parts of digestive tract; Z88.6 Allergy status to analgesic agent; Z88.5 Allergy status to narcotic agent; Z91.041 Radiographic dye allergy status; Z91.018 Allergy to other foods
CPT/HCPCS: 36415; 80053; 83690; 83735; 84484; 85025; 93005; 96361; 96374; 96375; 99285-25; J1630; J2405; J3010; J7030

== ENCOUNTER 2017-12-12 08:46 | Emergency (ER) | payer MEDICAID ==
[2017-12-12] MEDS: fentaNYL PF VIAL 100 MCG/2 ML VIAL IV ×2 (10:31)
[2017-12-12] MEDS: ONDANSETRON PF 4 MG/2 ML VIAL. IV ×2 (10:31)
[2017-12-12] MEDS: FAMOTIDINE 20 MG/2 ML VIAL IVP ×2 (10:31)
[2017-12-12 10:36] LABS: ADD MAN DIFF? NO
[2017-12-12 10:38] LABS: BASO # 0.1 x10^3/uL (0.0-0.2); BASO % 1 % (0-3); EOS # 0.2 x10^3/uL (0.0-0.7); EOS % 2 % (0-3); HEMATOCRIT 47.2 % (39.0-53.0); HEMOGLOBIN 15.6 g/dL (13.0-17.5); LYMPH # 1.5 x10^3/uL (1.0-4.8); LYMPH % 11 % (24-48); MEAN CORPUSCULAR HEMOGLOBIN 32 pg (25-35); MEAN CORPUSCULAR HGB CONC 33 g/dL (31-37); MEAN CORPUSCULAR VOLUME 96 fL (79-100); MONO # 0.6 x10^3/uL (0.0-1.1); MONO % 4 % (0-9); NEUT # 11.2 x10^3uL (1.8-7.7); NEUT % 82 % (31-73); PLATELET COUNT 294 x10^3/uL (140-400); RED BLOOD COUNT 4.93 x10^6/uL (4.30-5.70); RED CELL DISTRIBUTION WIDTH 13.6 % (11.5-14.5); WHITE BLOOD COUNT 13.6 x10^3/uL (4.0-11.0)
[2017-12-12] MEDS ORDERED: IOHEXOL 300 MG/ML 100ML VIAL. IV ×2 (11:00)
[2017-12-12 11:01] LABS: ETHANOL < 10 mg/dL (0-10)
[2017-12-12 11:06] LABS: ALBUMIN 3.3 g/dL (3.4-5.0); ALK PHOS 107 U/L (46-116); ALT (SGPT) 21 U/L (16-63); ANION GAP 10 (6-14); AST (SGOT) 13 U/L (15-37); BLOOD UREA NITROGEN 15 mg/dL (8-26); BUN/CREATININE RATIO 25 (6-20); CALCIUM 8.4 mg/dL (8.5-10.1); CARBON DIOXIDE 26 mmol/L (21-32); CHLORIDE 107 mmol/L (98-107); CREATININE 0.6 mg/dL (0.7-1.3); GFR 151.6; GLUCOSE 118 mg/dL (70-99); LIPASE 152 U/L (73-393); POTASSIUM 3.8 mmol/L (3.5-5.1); SODIUM 143 mmol/L (136-145); TOTAL BILIRUBIN 0.1 mg/dL (0.2-1.0); TOTAL PROTEIN 6.7 g/dL (6.4-8.2)
[2017-12-12] MEDS ORDERED: CONTRAST GIVEN MC ×2 (11:15)
== END 2017-12-12 13:10 | disposition home or self-care (01) ==
LOC: ER 08:46
DX: R10.32 Left lower quadrant pain (principal); R11.2 Nausea with vomiting, unspecified; Z90.49 Acquired absence of other specified parts of digestive tract; F12.10 Cannabis abuse, uncomplicated; Z88.6 Allergy status to analgesic agent; Z91.041 Radiographic dye allergy status; Z88.5 Allergy status to narcotic agent; Z91.018 Allergy to other foods
CPT/HCPCS: 36415; 74177; 80053; 83690; 85025; 96374; 96375; 99285-25; G0480; J2405; J3010; S0028

== ENCOUNTER 2018-01-06 08:54 | Emergency (ER) | payer MEDICAID ==
[2018-01-06] MEDS ORDERED: ONDANSETRON ODT 4 MG TAB.RAPDIS. PO ×2 (09:45)
[2018-01-06] MEDS ORDERED: PROCHLORPERAZINE 10 MG/2 ML VIAL. IM ×2 (09:45)
[2018-01-06] MEDS ORDERED: HALOPERIDOL LACTATE 5 MG/ML VIAL. IM ×2 (09:45)
[2018-01-06] MEDS ORDERED: FAMOTIDINE 20 MG TABLET. PO ×2 (10:00)
[2018-01-06] MEDS ORDERED: ONDANSETRON PF 4 MG/2 ML VIAL. ×2 (10:31)
[2018-01-06] MEDS ORDERED: FAMOTIDINE 20 MG/2 ML VIAL ×2 (10:31)
[2018-01-06 10:36] LABS: ADD MAN DIFF? NO
[2018-01-06] MEDS: FAMOTIDINE 20 MG/2 ML VIAL IVP ×2 (10:41)
[2018-01-06] MEDS: ONDANSETRON PF 4 MG/2 ML VIAL. IV ×2 (10:42)
[2018-01-06] MEDS: PROCHLORPERAZINE 10 MG/2 ML VIAL. IV ×2 (10:42)
[2018-01-06] MEDS: HALOPERIDOL LACTATE 5 MG/ML VIAL. IVP ×2 (10:42)
[2018-01-06 10:44] LABS: BASO # 0.1 x10^3/uL (0.0-0.2); BASO % 1 % (0-3); EOS # 0.1 x10^3/uL (0.0-0.7); EOS % 1 % (0-3); HEMATOCRIT 50.1 % (39.0-53.0); LYMPH # 1.2 x10^3/uL (1.0-4.8); LYMPH % 11 % (24-48); MEAN CORPUSCULAR HEMOGLOBIN 32 pg (25-35); MEAN CORPUSCULAR HGB CONC 34 g/dL (31-37); MEAN CORPUSCULAR VOLUME 96 fL (79-100); MONO # 0.4 x10^3/uL (0.0-1.1); MONO % 3 % (0-9); NEUT # 9.6 x10^3uL (1.8-7.7); NEUT % 85 % (31-73); PLATELET COUNT 283 x10^3/uL (140-400); RED BLOOD COUNT 5.24 x10^6/uL (4.30-5.70); RED CELL DISTRIBUTION WIDTH 13.5 % (11.5-14.5); WHITE BLOOD COUNT 11.3 x10^3/uL (4.0-11.0)
[2018-01-06 10:50] LABS: ANION GAP 15 (6-14); BLOOD UREA NITROGEN 18 mg/dL (8-26); BUN/CREATININE RATIO 23 (6-20); CALCIUM 10.1 mg/dL (8.5-10.1); CARBON DIOXIDE 23 mmol/L (21-32); CHLORIDE 103 mmol/L (98-107); CREATININE 0.8 mg/dL (0.7-1.3); GFR 108.8; GLUCOSE 145 mg/dL (70-99); POTASSIUM 3.8 mmol/L (3.5-5.1); SODIUM 141 mmol/L (136-145)
[2018-01-06 10:50] LABS: ETHANOL < 10 mg/dL (0-10)
[2018-01-06 10:55] LABS: ALBUMIN 4.2 g/dL (3.4-5.0); ALBUMIN/GLOBULIN RATIO 1.2 (1.0-1.7); ALK PHOS 123 U/L (46-116); ALT (SGPT) 23 U/L (16-63); AST (SGOT) 18 U/L (15-37); LIPASE 82 U/L (73-393); TOTAL BILIRUBIN 0.4 mg/dL (0.2-1.0); TOTAL PROTEIN 7.8 g/dL (6.4-8.2)
== END 2018-01-06 11:18 | disposition left against medical advice (07) ==
LOC: ER 08:54
DX: G43.A0 Cyclical vomiting, in migraine, not intractable (principal); F12.10 Cannabis abuse, uncomplicated; F17.200 Nicotine dependence, unspecified, uncomplicated; Z90.49 Acquired absence of other specified parts of digestive tract; Z88.6 Allergy status to analgesic agent; Z91.041 Radiographic dye allergy status; Z88.5 Allergy status to narcotic agent; Z91.018 Allergy to other foods
CPT/HCPCS: 36415; 80053; 83690; 85025; 96374; 96375; 99284-25; G0480; J0780; J1630; J2405; S0028

== ENCOUNTER 2018-01-10 06:53 | Emergency (ER) | payer MEDICAID ==
[2018-01-10] MEDS: HALOPERIDOL LACTATE 5 MG/ML VIAL. IVP ×2 (08:13)
[2018-01-10] MEDS: KETOROLAC 30 MG/ML INJ. IV ×2 (08:13)
[2018-01-10] MEDS: IV NORMAL SALINE 1000ML BAG 1,000 ML IV ×2 (08:13)
[2018-01-10 08:35] LABS: ADD MAN DIFF? NO
[2018-01-10 08:42] LABS: BASO % 1 % (0-3); EOS % 0 % (0-3); HEMATOCRIT 45.8 % (39.0-53.0); HEMOGLOBIN 15.6 g/dL (13.0-17.5); LYMPH # 0.6 x10^3/uL (1.0-4.8); LYMPH % 9 % (24-48); MEAN CORPUSCULAR HEMOGLOBIN 32 pg (25-35); MEAN CORPUSCULAR HGB CONC 34 g/dL (31-37); MEAN CORPUSCULAR VOLUME 94 fL (79-100); MONO # 0.7 x10^3/uL (0.0-1.1); MONO % 11 % (0-9); NEUT # 4.9 x10^3uL (1.8-7.7); NEUT % 79 % (31-73); PLATELET COUNT 187 x10^3/uL (140-400); RED BLOOD COUNT 4.87 x10^6/uL (4.30-5.70); RED CELL DISTRIBUTION WIDTH 13.5 % (11.5-14.5); WHITE BLOOD COUNT 6.3 x10^3/uL (4.0-11.0)
[2018-01-10 08:45] LABS: ANION GAP 7 (6-14); BLOOD UREA NITROGEN 18 mg/dL (8-26); BUN/CREATININE RATIO 26 (6-20); CALCIUM 8.6 mg/dL (8.5-10.1); CARBON DIOXIDE 28 mmol/L (21-32); CHLORIDE 98 mmol/L (98-107); CREATININE 0.7 mg/dL (0.7-1.3); GFR 126.9; GLUCOSE 105 mg/dL (70-99); POTASSIUM 3.4 mmol/L (3.5-5.1); SODIUM 133 mmol/L (136-145)
[2018-01-10 08:52] LABS: ALBUMIN 3.2 g/dL (3.4-5.0); ALBUMIN/GLOBULIN RATIO 0.9 (1.0-1.7); ALK PHOS 98 U/L (46-116); ALT (SGPT) 21 U/L (16-63); AST (SGOT) 19 U/L (15-37); LIPASE 107 U/L (73-393); TOTAL BILIRUBIN 0.3 mg/dL (0.2-1.0); TOTAL PROTEIN 6.7 g/dL (6.4-8.2)
== END 2018-01-10 08:37 | disposition home or self-care (01) ==
LOC: ER 06:53
DX: R10.84 Generalized abdominal pain (principal); G43.A0 Cyclical vomiting, in migraine, not intractable; F12.10 Cannabis abuse, uncomplicated; Z90.49 Acquired absence of other specified parts of digestive tract; Z88.5 Allergy status to narcotic agent; Z91.041 Radiographic dye allergy status; Z91.018 Allergy to other foods
CPT/HCPCS: 36415; 80053; 83690; 83735; 85025; 96374; 96375; 99284-25; J1630; J1885; J7030

== ENCOUNTER 2018-02-25 06:27 | Emergency (ER) | payer SELFPAY, MEDICAID ==
[2018-02-25] MEDS: IV NORMAL SALINE 1000ML BAG 1,000 ML IV (07:36)
[2018-02-25] MEDS: HALOPERIDOL LACTATE 5 MG/ML VIAL. IVP (07:37)
[2018-02-25 08:15] LABS: ADD MAN DIFF? NO
[2018-02-25 08:36] LABS: BASO # 0.1 x10^3/uL (0.0-0.2); BASO % 1 % (0-3); EOS # 0.1 x10^3/uL (0.0-0.7); EOS % 1 % (0-3); HEMATOCRIT 45.6 % (39.0-53.0); HEMOGLOBIN 14.9 g/dL (13.0-17.5); LYMPH # 1.3 x10^3/uL (1.0-4.8); LYMPH % 13 % (24-48); MEAN CORPUSCULAR HEMOGLOBIN 32 pg (25-35); MEAN CORPUSCULAR HGB CONC 33 g/dL (31-37); MEAN CORPUSCULAR VOLUME 97 fL (79-100); MONO # 0.3 x10^3/uL (0.0-1.1); MONO % 3 % (0-9); NEUT # 8.4 x10^3uL (1.8-7.7); NEUT % 82 % (31-73); PLATELET COUNT 236 x10^3/uL (140-400); RED BLOOD COUNT 4.73 x10^6/uL (4.30-5.70); WHITE BLOOD COUNT 10.2 x10^3/uL (4.0-11.0)
[2018-02-25 08:39] LABS: FECAL OB PT POSITIVE (NEG); NEG OBC FOB NEG; POS OBC FOB POS
[2018-02-25 08:45] LABS: ANION GAP 10 (6-14); BLOOD UREA NITROGEN 15 mg/dL (8-26); BUN/CREATININE RATIO 25 (6-20); CALCIUM 9.1 mg/dL (8.5-10.1); CARBON DIOXIDE 28 mmol/L (21-32); CHLORIDE 104 mmol/L (98-107); CREATININE 0.6 mg/dL (0.7-1.3); GFR 150.8; GLUCOSE 120 mg/dL (70-99); SODIUM 142 mmol/L (136-145)
[2018-02-25 08:48] LABS: ALBUMIN 3.4 g/dL (3.4-5.0); ALBUMIN/GLOBULIN RATIO 1.1 (1.0-1.7); ALK PHOS 102 U/L (46-116); ALT (SGPT) 31 U/L (16-63); AST (SGOT) 21 U/L (15-37); LIPASE 165 U/L (73-393); TOTAL BILIRUBIN 0.3 mg/dL (0.2-1.0); TOTAL PROTEIN 6.4 g/dL (6.4-8.2)
[2018-02-25 08:52] LABS: POTASSIUM 4.2 mmol/L (3.5-5.1)
== END 2018-02-25 08:56 | disposition left against medical advice (07) ==
LOC: ER 06:27
DX: K64.8 Other hemorrhoids (principal); K64.4 Residual hemorrhoidal skin tags; K31.84 Gastroparesis; F12.10 Cannabis abuse, uncomplicated; F41.9 Anxiety disorder, unspecified; Z90.49 Acquired absence of other specified parts of digestive tract; Z88.6 Allergy status to analgesic agent; Z88.5 Allergy status to narcotic agent; Z91.041 Radiographic dye allergy status; Z91.018 Allergy to other foods
CPT/HCPCS: 36415; 80053; 82274; 83690; 85025; 96361; 96374; 99284-25; J1630; J7030

== ENCOUNTER 2018-11-12 06:10 | Emergency (ER) | payer SELFPAY ==
[~2018-11-12] VITALS: Ht 188 cm; Wt 59.9 kg
[~2018-11-12 06:10] MED LIST changes: -OXYC10TA45 PO; +OXYC10TA46 PO
[2018-11-12] MEDS ORDERED: IOHEXOL 300 MG/ML 100ML VIAL. IV ONE (07:00)
[2018-11-12] MEDS ORDERED: CONTRAST GIVEN. MC PRN (07:00)
[2018-11-12] MEDS ORDERED: HALOPERIDOL LACTATE 5 MG/ML VIAL. IM ONE (07:00)
[2018-11-12] MEDS ORDERED: IV NORMAL SALINE 1000ML BAG 1,000 ML IV ONE (07:00)
[2018-11-12] MEDS ORDERED: KETOROLAC 15 MG/ML VIAL. IV ONE (07:00)
[2018-11-12 07:10] LABS: BASO % 1 % (0-3); EOS # 0.1 x10^3/uL (0.0-0.7); EOS % 2 % (0-3); HEMATOCRIT 46.1 % (39.0-53.0); LYMPH # 1.3 x10^3/uL (1.0-4.8); LYMPH % 21 % (24-48); MEAN CORPUSCULAR HEMOGLOBIN 33 pg (25-35); MEAN CORPUSCULAR HGB CONC 35 g/dL (31-37); MEAN CORPUSCULAR VOLUME 94 fL (79-100); MONO # 0.6 x10^3/uL (0.0-1.1); MONO % 10 % (0-9); NEUT # 4.2 x10^3uL (1.8-7.7); NEUT % 66 % (31-73); PLATELET COUNT 251 x10^3/uL (140-400); RED BLOOD COUNT 4.91 x10^6/uL (4.30-5.70); RED CELL DISTRIBUTION WIDTH 13.5 % (11.5-14.5); WHITE BLOOD COUNT 6.3 x10^3/uL (4.0-11.0)
[2018-11-12 07:21] LABS: CREATININE 1.1 mg/dL (0.7-1.3); GFR 74.9; POTASSIUM 3.5 mmol/L (3.5-5.1)
[2018-11-12 07:27] LABS: ALBUMIN 3.5 g/dL (3.4-5.0); ALBUMIN/GLOBULIN RATIO 1.1 (1.0-1.7); TOTAL BILIRUBIN 0.2 mg/dL (0.2-1.0); TOTAL PROTEIN 6.8 g/dL (6.4-8.2)
[2018-11-12] MEDS ORDERED: KETAMINE HCL IN STERILE WATER 50 MG/5 ML SYRINGE IV ONE (08:15)
[2018-11-12 10:09] VITALS: BP 180/89
--- NOTE | 2018-11-12 10:14 | RAD ---
PQRS Compliance Statement: One or more of the following individualized dose reduction techniques were utilized for this examination: 1. Automated exposure control 2. Adjustment of the mA and/or kV according to patient size 3. Use of iterative reconstruction technique CT abdomen/pelvis without contrast 11/12/2018 6:39 AM INDICATION: Right lower quadrant abdominal pain. COMPARISON: CT abdomen/pelvis December 12, 2017 TECHNIQUE: Multiple axial CT images of the abdomen and pelvis were obtained without intravenous contrast. Coronal and sagittal reformats are provided. FINDINGS: Lung bases are clear. Mild pectus deformity identified. Heart size is within normal limits. Evaluation of solid abdominal viscera is limited by lack of intravenous contrast. The liver, spleen, bilateral adrenal glands and pancreas are normal in appearance. Gallbladder surgically absent. The abdominal aorta is normal in course and caliber. There are no pathologically enlarged lymph nodes in the abdomen and pelvis. There is no abdominal free fluid. There is no free intraperitoneal air. Oral contrast was administered. Opacified bowel loops demonstrate normal mucosal fold pattern. Small and large bowel are normal in caliber. There is no evidence for bowel obstruction. There are no pericolonic inflammatory changes. A normal, nondilated appendix is visualized without adjacent inflammatory changes. The kidneys are relatively symmetric in appearance. There is no suspicious renal mass within the limitations of a noncontrast examination. There is no hydronephrosis. There are no calculi within the kidneys, ureters or urinary bladder. The urinary bladder is within normal limits given degree of distention. Uterus and adnexa are within normal limits. No suspicious pelvic masses are identified. There are no suspicious osseous lesions identified. Calcified density within the right piriformis muscle most favors myositis ossificans. IMPRESSION: Appendix is normal. There is suggestion of myositis ossificans or calcified hematoma involving the right piriformis muscle. If pain localizes to this region, further evaluation with nonemergent MRI may be of benefit . Electronically signed by: Estefany Hernandez MD (11/12/2018 10:11 AM) [facility]
--- NOTE | 2018-11-12 10:37 | PHYS DOC ---
Past Medical History Past Medical History: Cyclic Vomiting, Other Additional Past Medical Histor: MUS. DYSTROPHY, neurofibromatosis, gastroparesis, drug seeking,cyclic vomit Past Surgical History: Cholecystectomy Alcohol Use: Rarely Drug Use: Marijuana Adult General Chief Complaint Chief Complaint: ABDOMINAL PAIN HPI HPI Patient is a 38 year old male who presents with chief complaint of abdominal pain with vomiting. He says he's had this before but it got worse recently his stomach virus going through his house. He says he hasn't been to the ER in a while and that he tells me that "the previous ER director you know that erin from [place]", he is to give me ketamine and Ativan. Review of Systems Review of Systems Constitutional: Denies fever or chills [] Eyes: Denies change in visual acuity, redness, or eye pain [] HENT: Denies nasal congestion or sore throat [] Musculoskeletal: Denies back pain or joint pain [] Integument: Denies rash or skin lesions [] Neurologic: Denies headache, focal weakness or sensory changes [] Endocrine: Denies polyuria or polydipsia [] All other systems were reviewed and found to be within normal limits, except as documented in this note. Current Medications Current Medications Current Medications Medications (Trade) Dose Ordered Sig/Noah Start Time Stop Time Status Last Admin Dose Admin Haloperidol Lactate (Haldol Inj) 2.5 mg 1X ONCE 11/12/18 07:00 11/12/18 09:33 DC Info (CONTRAST GIVEN -- Rx MONITORING) 1 each PRN DAILY PRN 11/12/18 07:00 11/12/18 10:23 DC Iohexol (Omnipaque 300 Mg/ml) 75 ml 1X ONCE 11/12/18 07:00 11/12/18 07:01 DC 11/12/18 07:00 75 ML Ketamine HCl (Ketamine) 20 mg 1X ONCE 11/12/18 08:15 11/12/18 08:16 DC 11/12/18 07:59 20 MG Ketorolac Tromethamine (Toradol 15mg Vial) 15 mg 1X ONCE 11/12/18 07:00 11/12/18 09:33 DC Sodium Chloride 1,000 ml @ 1,000 mls/hr 1X ONCE 11/12/18 07:00 11/12/18 09:33 DC 11/12/18 07:28 1,000 MLS/HR Allergies Allergies Allergies Coded Allergies Type Severity Reaction Last Updated Verified acetaminophen Allergy Intermediate vomiting, and hives 09/26/17 Yes walnut Allergy Intermediate Rash 09/26/17 Yes I S O L A T I O N *CONTACT* Allergy Unknown 09/26/17 Yes morphine Adverse Reaction Severe "makes me crazy" Tolerates Dilaudid, Oxycodone 09/26/17 Yes Physical Exam Physical Exam Constitutional: Well developed, well nourished, no acute distress, non-toxic appearance. [] HENT: Normocephalic, atraumatic, bilateral external ears normal, oropharynx moist, no oral exudates, nose normal. [] Eyes: PERRLA, EOMI, conjunctiva normal, no discharge. [] Neck: Normal range of motion, no tenderness, supple, no stridor. [] Pulmonary: Normal respiratory effort no increased work of breathing no obvious chest wall trauma Abdomen: Bowel sounds normal, soft, rlq tenderness, no masses, no pulsatile masses. [] Skin: Warm, dry, no erythema, no rash. [] Back: No tenderness, no CVA tenderness. [] Extremities: No tenderness, no cyanosis, no clubbing, ROM intact, no edema. [] Neurologic: Alert and oriented X 3, normal motor function, normal sensory function, no focal deficits noted. [] Psychologic: Affect normal, judgement normal, mood normal. [] Current Patient Data Vital Signs Vital Signs Date Time Temp Pulse Resp B/P (MAP) Pulse Ox O2 Delivery O2 Flow Rate FiO2 11/12/18 10:09 88 180/89 (119) 94 Room Air 11/12/18 06:15 97.1 18 97.1 Lab Values Laboratory Tests Test 11/12/18 06:55 White Blood Count 6.3 x10^3/uL (4.0-11.0) Red Blood Count 4.91 x10^6/uL (4.30-5.70) Hemoglobin 16.0 g/dL (13.0-17.5) Hematocrit 46.1 % (39.0-53.0) Mean Corpuscular Volume 94 fL (79-100) Mean Corpuscular Hemoglobin 33 pg (25-35) Mean Corpuscular Hemoglobin Concent 35 g/dL (31-37) Red Cell Distribution Width 13.5 % (11.5-14.5) Platelet Count 251 x10^3/uL (140-400) Neutrophils (%) (Auto) 66 % (31-73) Lymphocytes (%) (Auto) 21 % (24-48) L Monocytes (%) (Auto) 10 % (0-9) H Eosinophils (%) (Auto) 2 % (0-3) Basophils (%) (Auto) 1 % (0-3) Neutrophils # (Auto) 4.2 x10^3uL (1.8-7.7) Lymphocytes # (Auto) 1.3 x10^3/uL (1.0-4.8) Monocytes # (Auto) 0.6 x10^3/uL (0.0-1.1) Eosinophils # (Auto) 0.1 x10^3/uL (0.0-0.7) Basophils # (Auto) 0.0 x10^3/uL (0.0-0.2) Sodium Level 140 mmol/L (136-145) Potassium Level 3.5 mmol/L (3.5-5.1) Chloride Level 100 mmol/L (98-107) Carbon Dioxide Level 32 mmol/L (21-32) Anion Gap 8 (6-14) Blood Urea Nitrogen 20 mg/dL (8-26) Creatinine 1.1 mg/dL (0.7-1.3) Estimated GFR (Cockcroft-Gault) 74.9 BUN/Creatinine Ratio 18 (6-20) Glucose Level 113 mg/dL (70-99) H Calcium Level 9.0 mg/dL (8.5-10.1) Total Bilirubin 0.2 mg/dL (0.2-1.0) Aspartate Amino Transferase (AST) 21 U/L (15-37) Alanine Aminotransferase (ALT) 41 U/L (16-63) Alkaline Phosphatase 91 U/L (46-116) Total Protein 6.8 g/dL (6.4-8.2) Albumin 3.5 g/dL (3.4-5.0) Albumin/Globulin Ratio 1.1 (1.0-1.7) Lipase 225 U/L (73-393) Laboratory Tests 11/12/18 06:55 Laboratory Tests 11/12/18 06:55 EKG EKG [] Radiology/Procedures Radiology/Procedures [] Impressions: Lung bases are clear. Mild pectus deformity identified. Heart size is within normal limits. Evaluation of solid abdominal viscera is limited by lack of intravenous contrast. The liver, spleen, bilateral adrenal glands and pancreas are normal in appearance. Gallbladder surgically absent. The abdominal aorta is normal in course and caliber. There are no pathologically enlarged lymph nodes in the abdomen and pelvis. There is no abdominal free fluid. There is no free intraperitoneal air. Oral contrast was administered. Opacified bowel loops demonstrate normal mucosal fold pattern. Small and large bowel are normal in caliber. There is no evidence for bowel obstruction. There are no pericolonic inflammatory changes. A normal, nondilated appendix is visualized without adjacent inflammatory changes. The kidneys are relatively symmetric in appearance. There is no suspicious renal mass within the limitations of a noncontrast examination. There is no hydronephrosis. There are no calculi within the kidneys, ureters or urinary bladder. The urinary bladder is within normal limits given degree of distention. Uterus and adnexa are within normal limits. No suspicious pelvic masses are identified. There are no suspicious osseous lesions identified. Calcified density within the right piriformis muscle most favors myositis ossificans. IMPRESSION: Appendix is normal. There is suggestion of myositis ossificans or calcified hematoma involving the right piriformis muscle. If pain localizes to this region, further evaluation with nonemergent MRI may be of benefit . Electronically signed by: Sharee Hernandez MD (11/12/2018 10:11 AM) [facility] DICTATED and SIGNED BY: SHAREE HERNANDEZ MD DATE: 11/12/18 0957 Course & Med Decision Making Course & Med Decision Making Pertinent Labs and Imaging studies reviewed. (See chart for details) []38-year-old male presenting with abdominal pain history of same history of drug-seeking behavior. In the emergency room patient frequently asked for pain medication than what I would come and I said that I was not going to give him any narcotics and he wouldn't say that "I never asked for any pain medication". This is despite the nurse's repeatedly coming to me asking for pain medication for this specific patient. Patient was a difficult IV stick and as such there was a delay in ER care however we eventually did get a noncontrast CT abdomen and pelvis. no acute findings. I noted that the oral contrast and the CT scan we did not give that here. This means that he had a recent CT scan at outside hospital that he did tell nobody about in the entire 4 hours that he was here before the CT scan. I did confront him about this and I told him that his lack of open this resulted in excessive radiation that I found to be quite frustrating. I did disability counselor him on the risks of excessive radiation as well as overuse of the emergency department he was discharged in stable condition. Dragon Disclaimer Dragon Disclaimer This electronic medical record was generated, in whole or in part, using a voice recognition dictation system. Departure Departure Impression: Primary Impression: Chronic abdominal pain Disposition: 01 HOME, SELF-CARE Condition: STABLE Referrals: MICHAELLE MASTERS (PCP) Patient Instructions: Abdominal Pain (Nonspecific) EYAL PÉREZ MD Nov 12, 2018 10:37
== END 2018-11-12 10:23 | disposition home or self-care (01) ==
LOC: ER 06:10
DX: G89.29 Other chronic pain (principal); R10.9 Unspecified abdominal pain; R11.10 Vomiting, unspecified; Z90.49 Acquired absence of other specified parts of digestive tract
CPT/HCPCS: 36415; 74176; 80053; 83690; 85025; 96361; 96374; 99284; J7030; Q9967

== ENCOUNTER 2021-03-09 06:30 | Emergency (ER) | payer SELFPAY ==
[~2021-03-09] VITALS: Ht 190.5 cm; Wt 68.0 kg
[~2021-03-09 06:30] MED LIST changes: +OMEP20CA16 PO; -OMEP20CA9 PO; +POTA20TA4 PO; -POTA20TA82 PO; +SERT-266 PO; -SERT25TA4 PO
[2021-03-09] MEDS: IV NORMAL SALINE 1000ML BAG 1,000 ML IV ONE (06:55)
[2021-03-09] MEDS: ONDANSETRON PF 4 MG/2 ML VIAL. IVP ONE (06:56)
[2021-03-09 07:06] VITALS: BP 140/96
[2021-03-09 07:10] LABS: CALCIUM 9.6 mg/dL (8.5-10.1); CREATININE 0.9 mg/dL (0.7-1.3); POTASSIUM 3.3 mmol/L (3.5-5.1)
--- NOTE | 2021-03-09 07:14 | EKG ---
[facility] [address] [place] [address] Test Date: 2021-03-09 Test Time: 07:02:52 Pat Name: TIFFANY HERRING Department: Room: Gender: M [employer]: : 1980 Requested By: YESSICA BAKER Order Number: [id number] Reading MD: Measurements Intervals [place] Rate: 70 P: 64 VT: 158 QRS: 96 QRSD: 106 T: 54 QT: 380 QTc: 413 Interpretive Statements SINUS RHYTHM LEFT ATRIAL ABNORMALITY RIGHTWARD AXIS INCOMPLETE RIGHT BUNDLE BRANCH BLOCK ABNORMAL ECG RI6.02 Compared to ECG 03/09/2021 07:01:38 No significant changes
[2021-03-09 07:15] LABS: BASO # 0.1 x10^3/uL (0.0-0.2); BASO % 1 % (0-3); EOS % 0 % (0-3); HEMATOCRIT 47.5 % (39.0-53.0); HEMOGLOBIN 16.7 g/dL (13.0-17.5); LYMPH # 0.8 x10^3/uL (1.0-4.8); LYMPH % 8 % (24-48); MEAN CORPUSCULAR HEMOGLOBIN 32 pg (25-35); MEAN CORPUSCULAR HGB CONC 35 g/dL (31-37); MEAN CORPUSCULAR VOLUME 92 fL (79-100); MONO # 0.3 x10^3/uL (0.0-1.1); MONO % 3 % (0-9); NEUT # 9.4 x10^3/uL (1.8-7.7); NEUT % 88 % (31-73); PLATELET COUNT 304 x10^3/uL (140-400); RED BLOOD COUNT 5.16 x10^6/uL (4.30-5.70); RED CELL DISTRIBUTION WIDTH 13.7 % (11.5-14.5); WHITE BLOOD COUNT 10.6 x10^3/uL (4.0-11.0)
[2021-03-09 07:16] LABS: ALBUMIN 4.3 g/dL (3.4-5.0); DIRECT BILIRUBIN 0.2 mg/dL (0.0-0.2); TOTAL BILIRUBIN 0.5 mg/dL (0.2-1.0); TOTAL PROTEIN 7.8 g/dL (6.4-8.2)
[2021-03-09 07:17] LABS: BILIRUBIN,URINE SMALL (NEG); CLARITY,URINE CLEAR; COLOR,URINE ORANGE; NITRITE,URINE NEGATIVE (NEG); PH,URINE 5.5 (<5.0-8.0); PROTEIN,URINE 100 mg/dL (NEG-TRACE)
[2021-03-09] MEDS: HALOPERIDOL LACTATE 5 MG/ML VIAL. IM ONE (07:22)
[2021-03-09] MEDS: CONTRAST GIVEN. MC PRN (07:26)
[2021-03-09] MEDS: IOHEXOL 300 MG/ML 100ML VIAL. IV ONE (07:26)
[2021-03-09 07:29] LABS: BACTERIA,URINE 0 /HPF (0-FEW); RBC,URINE 0 /HPF (0-2)
--- NOTE | 2021-03-09 07:58 | PHYS DOC ---
Past Medical History Past Medical History: Cyclic Vomiting, Other Additional Past Medical Histor: MUS. DYSTROPHY, neurofibromatosis, gastropares is,cyclic vomit Past Surgical History: Cholecystectomy Smoking Status: Current Every Day Smoker Alcohol Use: None Drug Use: Marijuana General Adult EDM: Chief Complaint: ABDOMINAL PAIN HPI: HPI: This is a pleasant 41-year-old male who presents emergency department today with abdominal pain right-sided. He has chronic abdominal pain from cyclic vomiting . His pain is worsened over the past 2 days. He denies fevers or chills. His pain is sharp shooting nonradiating intermittent and without leaving factors. It is associated with nausea and vomiting. Review of systems negative for fevers chills headache chest pain shortness of breath. All other review of systems negative. ED course: 41-year-old male presenting with abdominal pain with nausea and vomiting. On arrival he is afebrile with a normal heart rate. Otherwise vitals are within normal limits. On examination he has mild tenderness in the right lower quadrant. No rebound tenderness or guarding. Negative Sánchez sign. Patient was given IV fluids with Zofran and we were going to give him intramuscular Haldol for his acute on chronic abdominal pain along with getting blood work and a CT abdomen pelvis with urine analysis. The patient wanted Dilaudid and upon knowledge that he was not going to receive Dilaudid today immediately left AMA. He understands the risks of disability chronic pain. I was concerned that he could have appendicitis and could have complications from having a burst appendix including but not limited to disability and chronic pain including chronic diarrhea and short bowel syndrome. He then signed out AMA. Although this is not ideal, we will recommend that he follows up with his doctor today in clinic this morning for repeat abdominal exam and continuity of care. If he changes his mind he can come back and we will be happy to continue providing medical care. The patient then left AMA Heart Score: C/O Chest Pain: N/A Risk Factors: Risk Factors: DM, Current or recent (<one month) smoker, HTN, HLP, family history of CAD, obesity. Risk Scores: Score 0 - 3: 2.5% MACE over next 6 weeks - Discharge Home Score 4 - 6: 20.3% MACE over next 6 weeks - Admit for Clinical Observation Score 7 - 10: 72.7% MACE over next 6 weeks - Early Invasive Strategies Current Medications: Current Medications Medications (Trade) Dose Ordered Sig/Noah Start Time Stop Time Status Last Admin Dose Admin Haloperidol Lactate (Haldol Inj) 5 mg 1X ONCE 03/09/21 07:15 03/09/21 07:16 DC Info (CONTRAST GIVEN -- Rx MONITORING) 1 each PRN DAILY PRN 03/09/21 07:45 03/11/21 07:44 Iohexol (Omnipaque 300 Mg/ml) 75 ml 1X ONCE 03/09/21 07:45 03/09/21 07:46 DC Ondansetron HCl (Zofran) 4 mg 1X ONCE 03/09/21 07:15 03/09/21 07:16 DC 03/09/21 06:56 4 MG Sodium Chloride 1,000 ml @ 1,000 mls/hr 1X ONCE 03/09/21 07:15 03/09/21 08:14 03/09/21 06:55 1,000 MLS/HR Allergies: Allergies: Allergies Coded Allergies Type Severity Reaction Last Updated Verified acetaminophen Allergy Intermediate vomiting, and hives 09/26/17 Yes walnut Allergy Intermediate Rash 09/26/17 Yes I S O L A T I O N *CONTACT* Allergy Unknown 09/26/17 Yes morphine Adverse Reaction Severe "makes me crazy" Tolerates Dilaudid,Oxycodone 09/26/17 Yes Physical Exam: PE: Constitutional: Well developed, well nourished, no acute distress, non-toxic appearance. [] HENT: Normocephalic, atraumatic, bilateral external ears normal, oropharynx moist, no oral exudates, nose normal. [] Eyes: PERRLA, EOMI, conjunctiva normal, no discharge. [] Neck: Normal range of motion, no tenderness, supple, no stridor. [] Cardiovascular:Heart rate regular rhythm, no murmur [] Lungs & Thorax: Bilateral breath sounds clear to auscultation [] Abdomen: Bowel sounds normal, soft, mild ttp in the rlq, no masses, no pulsatile masses. [] Skin: Warm, dry, no erythema, no rash. [] Back: No tenderness, no CVA tenderness. [] Extremities: No tenderness, no cyanosis, no clubbing, ROM intact, no edema. [] Neurologic: Alert and oriented X 3, normal motor function, normal sensory function, no focal deficits noted. [] Psychologic: Affect normal, judgement normal, mood normal. [] Current Patient Data: Labs: Laboratory Tests Test 03/09/21 05:35 03/09/21 06:51 Urine Collection Type Unknown Urine Color [place] Urine Clarity Clear Urine pH 5.5 (<5.0-8.0) Urine Specific [place] >=1.030 (1.000-1.030) Urine Protein 100 mg/dL (NEG-TRACE) Urine Glucose (UA) Negative mg/dL (NEG) Urine Ketones (Stick) 15 mg/dL (NEG) Urine Blood Negative (NEG) Urine Nitrite Negative (NEG) Urine Bilirubin Small (NEG) Urine Urobilinogen Dipstick 1.0 mg/dL (0.2 mg/dL) Urine Leukocyte Esterase Negative (NEG) Urine RBC 0 /HPF (0-2) Urine WBC 5-10 /HPF (0-4) Urine Squamous Epithelial Cells Few /LPF Urine Bacteria 0 /HPF (0-FEW) Urine Mucus Marked /LPF White Blood Count 10.6 x10^3/uL (4.0-11.0) Red Blood Count 5.16 x10^6/uL (4.30-5.70) Hemoglobin 16.7 g/dL (13.0-17.5) Hematocrit 47.5 % (39.0-53.0) Mean Corpuscular Volume 92 fL (79-100) Mean Corpuscular Hemoglobin 32 pg (25-35) Mean Corpuscular Hemoglobin Concent 35 g/dL (31-37) Red Cell Distribution Width 13.7 % (11.5-14.5) Platelet Count 304 x10^3/uL (140-400) Neutrophils (%) (Auto) 88 % (31-73) H Lymphocytes (%) (Auto) 8 % (24-48) L Monocytes (%) (Auto) 3 % (0-9) Eosinophils (%) (Auto) 0 % (0-3) Basophils (%) (Auto) 1 % (0-3) Neutrophils # (Auto) 9.4 x10^3/uL (1.8-7.7) H Lymphocytes # (Auto) 0.8 x10^3/uL (1.0-4.8) L Monocytes # (Auto) 0.3 x10^3/uL (0.0-1.1) Eosinophils # (Auto) 0.0 x10^3/uL (0.0-0.7) Basophils # (Auto) 0.1 x10^3/uL (0.0-0.2) Platelet Estimate Pending Sodium Level 141 mmol/L (136-145) Potassium Level 3.3 mmol/L (3.5-5.1) L Chloride Level 101 mmol/L (98-107) Carbon Dioxide Level 30 mmol/L (21-32) Anion Gap 10 (6-14) Blood Urea Nitrogen 15 mg/dL (8-26) Creatinine 0.9 mg/dL (0.7-1.3) Estimated GFR (Cockcroft-Gault) 93.0 Glucose Level 133 mg/dL (70-99) H Calcium Level 9.6 mg/dL (8.5-10.1) Total Bilirubin 0.5 mg/dL (0.2-1.0) Direct Bilirubin 0.2 mg/dL (0.0-0.2) Aspartate Amino Transferase (AST) 15 U/L (15-37) Alanine Aminotransferase (ALT) 24 U/L (16-63) Alkaline Phosphatase 109 U/L (46-116) Total Protein 7.8 g/dL (6.4-8.2) Albumin 4.3 g/dL (3.4-5.0) Lipase 70 U/L (73-393) L Laboratory Tests 03/09/21 06:51 Laboratory Tests 03/09/21 06:51 Vital Signs: Vital Signs Date Time Temp Pulse Resp B/P (MAP) Pulse Ox O2 Delivery O2 Flow Rate FiO2 03/09/21 07:06 70 18 140/96 (111) 99 Room Air 03/09/21 06:41 98.1 98.1 EKG: EKG: [] Radiology/Procedures: Radiology/Procedures: [] Course & Med Decision Making: Course & Med Decision Making Pertinent Labs and Imaging studies reviewed. (See chart for details) [] Dragon Disclaimer: Dragon Disclaimer: This electronic medical record was generated, in whole or in part, using a voice recognition dictation system. Departure Departure Impression: Primary Impression: Left against medical advice Additional Impression: Abdominal pain Disposition: LEFT AGAINST MEDICAL ADVICE Condition: GUARDED Referrals: MICHAELLE MASTERS (PCP) Patient Instructions: Abdominal Pain Additional Instructions: Follow-up with your doctor today for reexamination. YESSICA BAKER MD Mar 09, 2021 07:58
[2021-03-09 09:13] LABS: % LYMPHS 10 % (24-48); % MONOS 5 % (0-10); % SEGS 85 % (35-66); PLT ESTIMATE ADEQUATE (ADEQUATE)
== END 2021-03-09 07:26 | disposition left against medical advice (07) ==
LOC: ER 06:30
DX: G89.29 Other chronic pain (principal); R10.9 Unspecified abdominal pain; R11.2 Nausea with vomiting, unspecified; F17.200 Nicotine dependence, unspecified, uncomplicated; F12.90 Cannabis use, unspecified, uncomplicated; Z90.49 Acquired absence of other specified parts of digestive tract; Z88.6 Allergy status to analgesic agent; Z88.8 Allergy status to other drugs, medicaments and biological substances; Z91.018 Allergy to other foods
CPT/HCPCS: 36415; 80048; 80076; 81001; 83690; 85007; 85025; 87086; 93005; 96374; 99284; J2405; J7030